=== PATIENT | female | born 1970 | race Caucasian/White ===

== ENCOUNTER 2023-04-26 01:38 | Observation (INO) | payer MEDICARE, OTHER, SELFPAY ==
[2023-04-25 21:30] VITALS: BP 121/93; BMI 22.3
--- NOTE | 2023-04-25 21:33 | EDRN ---
Addendum entered by Madelin Hernandez RN 04/25/23 21:34:
Temp in triage is 98.0
Original Note:
Pt feels she has a fever, states 'I'm normally 97.2'
[2023-04-25 22:33] VITALS: BMI 23.0
--- NOTE | 2023-04-25 22:37 | EDRN ---
Last night, pt developed numbness lower front L leg and it spread to whole leg into L arm. This went away after couple hours. Same symptoms started tonight while driving home. Pt has numbness now, worse when standing. Pt says she feels weak with
standing. Pt feels it while lying on stretcher. Numbness comes and goes. Numbness in L arm now 'like someone took a chunk out of my leg, like it is missing.' Not pins and needles. 'Like someone put novocaine there and it is numb.' Pt adds it
is a little bit of pain also. Slight nausea earlier. No cp, sob, abd pain, vomiting, fever/chills/cough, urinary symptoms, dizziness. Pt had a headache earlier this morning and says she has had them intermittently over the past week. No
visual/speech disturbance.
[2023-04-25 22:47] VITALS: BP 108/88
--- NOTE | 2023-04-25 23:09 | ED.GENMED ---
History of Present Illness
General
Chief Complaint: Numbness
Source: patient
Exam Limitations: none
Time Seen by Provider: 04/25/23 22:47
Nursing documentation reviewed up to this point in time: agreed with
Travel History
Have you had any contact with someone who has COVID-19?: No
Do you have any symptoms of coronavirus? Fever > 100 degrees, chills, cough, shortness of breath, sore throat, loss of taste or smell, muscle aches, or headache?: No
History of Present Illness
History of Present Illness:
52-year-old female presents emergency room complaining of left leg weakness and numbness, left arm numbness that began yesterday at 8 PM. She noted it went away, and then came back tonight. She also states she was driving the wrong bautista but was
unsure if it was because she was looking at her phone.
Past History
Past History
ED Past Medical History: Fibromyalgia, GERD and Other (kidney stones, migraines, irritable bowel syndrome, endometriosis, Pericarditis, Pyelonephritis, Sleep apnean, CPCP)
ED Past Surgical History: (�2), Gynecological (Laparoscopy �3), Tonsilectomy and Urological (Ureteroscopy with stone removal and stent placement 2013 as well as 10/24/2017.)
Social History
Tobacco: Former smoker
Alcohol: Occasional
Drug: None
Personal:
Living: with family
Employment: Not employed
Family History
Family History: Other (non contributory)
Review of Systems
Review of Systems
Allergies reviewed?: Yes
All Other Systems: Not applicable
Constitutional: Reports no symptoms
EENT: Reports no symptoms
Respiratory: Reports no symptoms
Cardiac: Reports no symptoms
ABD/GI: Reports no symptoms
: Reports no symptoms
Musculoskeletal: Reports no symptoms
Skin: Reports no symptoms
Neurological: Reports weakness and numbness
Endocrine: Reports no symptoms
Hematologic/Lymphatic: Reports no symptoms
Psychiatric: Reports no symptoms
Phy Exam
Physical Exam
Physical Exam:
Physical Exam
General: no apparent distress, not acutely ill
Neck: supple. no meningeal signs. normal posterior pharynx
Heart: s1/s2 regular rate and rhythm, no murmur. equal radial
pulses.
HEENT: Pupils equal round reactive to light, EOMI
Lungs: no acute respiratory distress. clear bilaterally
Abdomen: normal bowel sounds. not tender. no CVAT
Neuro: alert and oriented. no focal neurological deficits cranial nerves II through XII intact, except slight numbness and slight ataxia of the left leg
Skin: no rash
Psychiatric: well kept. interactive and cooperative
Extremities: no edema. no calf tenderness. negative homans. good distal pulses
Scores
NIH Stroke Score
Level of Consciousness: 0 - Alert
LOC Questions: 0-Answers both correctly
LOC Commands: 0-Performs both correctly
Best Horizontal Gaze: 0-Normal
Visual Wiseman: 0=Normal, no visual loss
Facial Palsy: 0=Normal, symmetrical
Motor - Right Arm: 0=No drift 10 seconds
Motor - Left Arm: 0=No drift 10 seconds
Motor - Right Le-No drift 5 seconds
Motor - Left Le-No drift 5 seconds
Limb Ataxia: 1-Present in one limb
Sensation: 0-Normal
Best Language: 0-No aphasia
Dysarthria: 0-Normal
Extinction and Inattention: 0-No abnormality
Total Score:: 1
Thrombolytic Contraindication
Inclusion and Exclusion criteria reviewed: Yes
Reasons for NON-Tx with Thrombolytics ABSOLUTE Exclusions: Greater than 4.5 hrs from onset of sxs
Course
Orders/Labs/Results
Orders:
Orders
04/25/23 23:04
EKG- Treatment ONCE
04/25/23 23:05
Electrocardiogram (*1) Urgent
Reason for Study: Fatigue / Weakness
CT Head W/o Iv Contrast Urgent
Comment:
Reason For Exam: left leg and arm weakness
Cardiac Monitoring- Treatment ONCE
IV Insert/Care/Rem.- Treatment PRN
04/25/23 23:20
Complete Blood Count/With Diff Urgent
Comprehensive Metabolic Panel Urgent
04/26/23 00:44
Aspirin 325 mg PO NOW STA
04/26/23 01:11
Admit/Transfer Patient As Directed
Co-Sign Provider:
Level of Care: Observation services
Assign to:: Telemetry
Physician / Group: Grant
Diagnosis: Left-Sided Numbness
Reason for Telemetry: CVA/TIA
Date to Stop Telemetry: 04/29/23
Time to Stop Telemetry: 11:00
04/26/23 01:12
Code Status As Directed
Resuscitation Status: Full Code
04/29/23 11:00
DC Protocol for Telemetry ONCE
Abnormal Lab Results
04/25/23
23:20
RBC 3.99 L 10^6/uL
(4.20-5.40)
Hgb 11.8 L g/dL
(12.0-16.0)
Hct 34.9 L %
(37.0-47.0)
04/25/23 23:20
04/25/23 23:20
Vital Signs
Initial and Last Documented VS:
Initial Vital Signs
Temp Pulse Resp BP Pulse Ox
98 F 78 16 121/93 99
04/25/23 21:30 04/25/23 21:30 04/25/23 21:30 04/25/23 21:30 04/25/23 21:30
Last Documented Vital Signs
Temp Pulse Resp BP Pulse Ox
98 F 83 12 122/90 100
04/25/23 21:30 04/26/23 01:00 04/26/23 01:00 04/26/23 01:00 04/26/23 00:00
MDM/Problems Addressed
Differential Diagnosis Includes:
cva, intracranial hemorrhage, complex migraine
MDM/Problems Addressed:
52 yo female with left sided numbness concerning for small cva. Symptoms began 1 day ago. TPA not indicated. Will give asa, admit for further workup.
Chronic conditions affecting care: Neurological disorder (migraines)
Acute Exacerbation and/or Progression of Chronic Illness: Neurological disorder (migraines)
*Radiology
Radiology exam reviewed: radiology read reviewed (CT head no acute findings)
*Pulse Oximetry
Patient hypoxic: no
*EKG
Interpreted by ED Provider?: NA
*Ice Skating Coach Interpretation
Rate: normal
Interpretation: normal
Heart Rate: 80
Rhythm: sinus
*Critical Care Note
Total Time (30-74mins, 75-104mins- exclusive of procedures): Not Applicable
Data Reviewed
Review of Other/Old Records Reveals: Discharge Summary (Prior renal calculus removal by Dr. Hill 11/11/2021)
Prescriptions/Medications Considered But Not Given:
TNK not indicated
Patient Management
Social determinants of health affecting care: Living situation and Strong social support
Discussion with other providers: Hospitalist
Escalation/DeEscalation of care consider admission/obs:
admit indicated
ED Attending Note
-
Portions of this chart may have been created with voice recognition software.� Occasional wrong word or��sound alike� substitutions may have occurred due to the inherent limitations of voice recognition software.
Discharge Plan
Departure
Patient Disposition: Admit
Date of Disposition: 04/26/23
Time of Disposition: 00:35
Presentation/result/management discussed w/ accepting MD/DO: Hospitalist
Patient with high blood pressure during this ER visit?: No
Condition: Good
Discharge Problem:
Acute CVA (cerebrovascular accident)
Prescriptions:
No Action
escitalopram oxalate 10 MG tablet
20 mg PO DAILY
topiramate 25 MG tablet
50 mg PO BID
loratadine 10 MG tablet
10 mg PO DAILY
docusate sodium 100 MG capsule
200 mg PO BID
lansoprazole 30 MG tablet,disintegrat, delay rel
30 mg PO DAILY
multivitamin Tablet
1 tab PO DAILY
tizanidine [Zanaflex] 4 mg Tablet
4 mg PO HS
amitriptyline [Elavil] 10 mg Tablet
10 mg PO DAILY
norethindrone acetate 5 mg Tablet
5 mg PO DAILY
Referrals:
Josiah Whittaker DO [Family Provider] -
Interventions
Interventions:
*Risk Screen - Suicide Last Done: 04/25/23 21:30
*General Assessment Last Done: 04/25/23 22:33
*Neglect/Abuse Screening Last Done: 04/25/23 21:30
ED- Fall Risk Assessment Last Done: 04/25/23 23:26
*ED COVID-19 Vaccine History Last Done: 04/25/23 21:30
ED- Neurological Assessment Last Done: 04/26/23 00:48
[2023-04-25 23:26] LABS: % Basophils 0.6 % (0-2); % Immature Granulocytes 0.2 % (0-0.5); % Lymphocytes 34.5 % (20.5-51.1); % Monocytes 5.1 % (1.7-9.3); % Neutrophils 57.6 % (42.2-75.2); Absolute Basophils 0.1 10^3/uL (0-0.2); Absolute Eosinophils 0.2 10^3/uL (0-0.7); Absolute Monocytes 0.4 10^3/uL (0.1-0.6); Absolute Neutrophils 4.9 10^3/uL (1.4-6.5); Hematocrit 34.9 % (37.0-47.0); Hemoglobin 11.8 g/dL (12.0-16.0); Mean Corp Hgb Conc. 33.8 g/dL (33.0-37.0); Mean Corpuscular Hgb 29.6 pg (27.0-31.0); Mean Corpuscular Volume 87.5 fL (81.0-99.0); Mean Platelet Volume 10.1 fL (7.4-10.4); Nucleated Red Blood Cells % 0 %; Platelet Count 271 10^3/uL (130-400); Red Blood Cell Count 3.99 10^6/uL (4.20-5.40); White Blood Cell Count 8.6 10^3/uL (4.8-10.8)
[2023-04-25 23:43] LABS: ALT (SGPT) 29 U/L (0-35); AST (SGOT) 26 U/L (14-36); Albumin 3.9 g/dl (3.5-5.0); Alkaline Phosphatase 118 U/L (38-126); Blood Urea Nitrogen 14 mg/dl (7-17); Calcium 9.7 mg/dl (8.4-10.2); Carbon Dioxide 23 mmol/L (22-30); Chloride 107 mmol/L (98-107); Estimated Creatinine Clearance 65 ml/min; Glucose 99 mg/dl (70-99); Potassium 3.7 mmol/L (3.5-5.1); Sodium 140 mmol/L (135-145); Total Bilirubin 0.4 mg/dl (0.2-1.3); Total Protein 7.1 g/dl (6.3-8.2); eGFR > 60.00
[2023-04-26] VITALS (8 sets, daily range): BP systolic 104–148; BP diastolic 67–90; PULSE 87–96; O2SAT 95; BMI 22.7
[2023-04-26] MEDS: ASPIRIN 325 MG PO (00:50)
--- NOTE | 2023-04-26 01:15 | HPS.HSE ---
Family Physician
-
Family Physician: Josiah Whittaker
Chief Complaint
-
Left Sided Numbness
History of Present Illness
Patient is a 52y F with PMH significant for fibromyalgia, migraines, concussion and kidney stones who presents to ED complaining of left sided numbness. Patient states that she first noted her symptoms last PM around 8PM. She noted numbness in
the L foot which ascended the leg and then spread into the L arm. She denies any tingling or paresthesias. There was no appreciable weakness, pain, headache, etc. Patient states that she is not sure if her symptoms resolved or if she simply fell
asleep; however, when she woke this AM she felt normal. Patient went about her day today with no issues.
This evening around 7:30 PM, she noted recurrent numbness in the leg which again spread to include the L arm. Patient states that she felt 'weak' on the L - though she had no specific difficulty with walking or with using the L arm / hand. She
simply noted a discrete difference between L and R. Patient states that she had a circumferential headache this AM, but has no headache now. She denies any speech issues, vision changes, dizziness, etc.
Patient notes that she had a similar episode about 15 years ago which was very similar. This also involved L sided weakness and patient notes that she underwent extensive evaluation at that time including imaging, spinal tap, etc. Work-up was
reportedly unremarkable and patient notes that her symptom were eventually attributed to 'fibromyalgia' and they eventually resolved on their own.
At the time of my examination in the ED, patient states that her symptoms are improved from arrival, but they have not fully resolved.
Medical History
Past Medical History
Past Medical History: Reports Other
Additional Past Medical History:
Fibromyalgia
Migraine Headaches
Concussion
Endometriosis
Fibroids
Anxiety / Depression
Past Surgical History: Reports Other
Additional Past Surgical History:
x 2
D&C
Ex Lap
Social History
Tobacco: Former Smoker (Quit smoking 25 years ago. < 10 pack years total use.)
Alcohol: Occasional
Drug: None
Family History
Family History: Other (Father: Lung cancer Mother: Fibromyalgia Brother: MS)
Allergies / Home Medications
Allergies reflects when Allergies were last updated in [facility].
Home Medications with original date entered in [facility]
Allergy/Medication List:
Allergies
Allergy/AdvReac Type Severity Reaction Status Date / Time
adhesive Allergy Rash Verified 04/25/23 21:29
chlorpheniramine polistirex Allergy ITCHING Verified 04/25/23 21:
[From Tussionex] BUT
'RESOLVES
WITH
BENADRYL'
ciprofloxacin [From Cipro] Allergy Anaphylaxis Verified 04/25/23 21:
ciprofloxacin HCl Allergy Anaphylaxis Verified 04/25/23 21:
[From Cipro]
doxycycline Allergy muscle Verified 04/25/23 21:29
aches/pain
hydrocodone polistirex Allergy itching, Verified 04/25/23 21:29
[From Tussionex] rash,
difficulty
breathing
Iodinated Contrast Media Allergy Itching Verified 04/25/23 21:29
[Iodinated Contrast- Oral
and IV Dye]
levofloxacin [From Levaquin] Allergy Anaphylaxis Verified 04/25/23 21:29
morphine Allergy itchy Verified 04/25/23 21:29
propoxyphene napsylate Allergy muscle Verified 04/25/23 21:29
[From Darvocet-N 100] spasms
sulfamethoxazole Allergy muscle Verified 04/25/23 21:29
[From Bactrim] weakness
(Bactrim)
trimethoprim [From Bactrim] Allergy muscle Verified 04/25/23 21:29
weakness
(Bactrim)
Home Medications
escitalopram oxalate 10 mg tablet 20 mg PO DAILY Mental Health/Anxiety 02/25/09
topiramate 25 mg tablet 50 mg PO BID Mental Health/Anxiety 07/21/12
loratadine 10 mg tablet 10 mg PO DAILY Allergies 09/24/19
docusate sodium 100 mg capsule 200 mg PO BID Constipation 11/27/20
lansoprazole 30 mg delayed release,disintegrating tablet 30 mg PO DAILY Gastrointestinal issue 11/27/20
amitriptyline 10 mg tablet 10 mg PO DAILY 04/25/23
multivitamin 1 tab PO DAILY 04/25/23
norethindrone acetate 5 mg tablet 5 mg PO DAILY 04/25/23
tizanidine 4 mg tablet (Zanaflex) 4 mg PO HS 04/25/23
Review of Systems
-
History Source: Patient
A 12 point ROS was completed and negative except as noted: Yes
Constitutional: Denies Fever, Fatigue or Chills
EENT: Denies Sore Throat
Respiratory: Denies Cough or Trouble Breathing
Cardiac: Denies Chest Pain or Palpitations
Abdomen/GI: Denies Abdominal Pain, Nausea, Vomiting or Diarrhea
: Denies Dysuria, Frequency or Flank Pain
Musculoskeletal: Denies Joint Pain or Edema
Neurological: Reports Headache, Weakness and Numbness; Denies Dizzy
Psych: Denies Depression or Anxiety
Physical Exam
Vital Signs
Vital Signs
Temp Pulse Resp BP Pulse Ox
98 F 84 12 107/83 100
04/25/23 21:30 04/26/23 00:00 04/26/23 00:00 04/26/23 00:00 04/26/23 00:00
Physical Exam
General: Other (52y F in no acute distress.)
HEENT: Moist mucous membranes, PERRLA and Other (No carotid bruits appreciated.)
Respiratory: Clear; No Wheezes, Rales or Rhonchi
Cardiac: S1/S2 and Regular Rhythm; No Murmur
GI: Soft, Non Tender, Non Distended and Normal Bowel Sounds
Musculoskeletal: No Clubbing, No Cyanosis and No Edema
Neuro: AO x 3 and Other (Sensation is intact, but described as 'dull' on the L. Minimal L weakness (arm and leg) compared to the R. No ataxia.)
Psych: No Anxious or Depressed
Laboratory Results
-
04/25/23 23:20
04/25/23 23:20
Laboratory Results
Total Bilirubin 0.4 mg/dl (0.2-1.3) 04/25/23 23:20
AST 26 U/L (14-36) 04/25/23 23:20
ALT 29 U/L (0-35) 04/25/23 23:20
Alkaline Phosphatase 118 U/L (38-126) 04/25/23 23:20
Impression/Plan
-
A/P: Patient is a 52y F with PMH significant for fibromyalgia, migraines and depression who presents to ED complaining of left sided numbness x 2 episodes in the past 2 days.
Left Sided Numbness
- Observe overnight for further evaluation and treatment.
- Symptoms last PM that resolved and symptoms this PM that are improving.
- CT head is unremarkable.
- Follow neuro exam for any changes - better or worse.
- ASA daily for now.
- MRI brain in the AM.
- PT /OT and Neurology evaluations in the AM.
- Note that patient had very similar episode about 15 years ago with what sounds an extensive - and unremarkable - work-up.
Fibromyalgia
Anxiety / Depression
- Stable. Continue usual outpatient medications.
DVT Prophylaxis: SCDs
Code Status: Full
--- NOTE | 2023-04-26 03:00 | PTCARENOTE ---
Pt admitted from ED to 3W room 319/1. Pt walked from the stretcher to the bed. Pt AAOx3, oriented to the unit. Resting comfortably in bed. Call mcgowan within reach. Plan of care ongoing.
[2023-04-26 06:31] LABS: Hematocrit 34.5 % (37.0-47.0); Hemoglobin 11.4 g/dL (12.0-16.0); Mean Corpuscular Hgb 30.1 pg (27.0-31.0); Mean Platelet Volume 10.6 fL (7.4-10.4); Platelet Count 238 10^3/uL (130-400); Red Blood Cell Count 3.79 10^6/uL (4.20-5.40)
[2023-04-26 06:52] LABS: Blood Urea Nitrogen 14 mg/dl (7-17); Calcium 9.6 mg/dl (8.4-10.2); Carbon Dioxide 25 mmol/L (22-30); Chloride 109 mmol/L (98-107); Estimated Creatinine Clearance 49 ml/min; Glucose 103 mg/dl (70-99); HDL Cholesterol 31 mg/dl; LDL Cholesterol, Calculated 129 mg/dl; Potassium 4.4 mmol/L (3.5-5.1); Sodium 140 mmol/L (135-145); Total Cholesterol 180 mg/dl (50-199); Triglyceride 104 mg/dl (10-149); Very Low Density Lipoprotein 20 mg/dl (0-30)
[2023-04-26 07:23] LABS: TSH Reflex To Free T4 6.63 uIU/ml (0.47-4.68)
[2023-04-26 07:52] LABS: Free T4 1.04 ng/dl (0.78-2.19)
[2023-04-26] MEDS: PROTONIX 40 MG PO (08:30)
[2023-04-26] MEDS: LOW STRENGTH ASPIRIN 81 MG PO (08:30)
[2023-04-26] MEDS: LEXAPRO 20 MG PO (08:30)
[2023-04-26] MEDS: TOPAMAX 50 MG PO (08:30)
[2023-04-26] MEDS: ELAVIL 10 MG PO (08:30)
--- NOTE | 2023-04-26 10:05 | CON.NEURO4 ---
Consultation - Neurology 4
-
CONSULTING PHYSICIAN: Ana
REFERRING PHYSICIAN: hospitalist
DICTATED BY: Ana
DATE/TIME OF REQUEST: 04/26/23 9am
DATE/TIME OF CONSULTATION: 04/26/23 at 915
Reason for Consultation: numbness
History of Present Illness:
52-year-old female with past medical history of fibromyalgia, concussion and diagnosis of hemiplegic migraine about 20 years ago associated with left-sided numbness. She currently follows with a neurologist at [facility], Dr. Olegario hernandez. She
states that Thursday night she started having a feeling like 'Novocain had been injected in her foot was on fire in the front of her left lower extremity. This gradually traveled up her leg and then later into her left arm. She laid down and it went
away. Thursday morning she was okay. Thursday evening it started again in the same place to the bottom of the left leg. It then spread again into her whole arm and leg on the left. The leg is worse than the arm. Got worse when she tried to
stand up on the leg. It gradually improved at night. She describes this as 'feeling like a chunk of her leg is missing.' She has had waxing and waning numbness in the left lower extremity associated with a wobbly sensation. She states that with
her current event she has had headaches on and off for about 1 week. She woke up with a headache yesterday. She is taken Advil, Excedrin and Benadryl for it.
Currently she has numbness in her left arm and leg. She says that when the SCDs compress her legs her pain worsens. Overall her left lower extremity feels less weak than it did prior. She still has some left facial numbness as well.
She says that about 20 years ago she had left-sided numbness starting in her left toes that gradually spread up her left side and involves her face. She was admitted and found to have no stroke as cause for her symptoms. She believes she was
ultimately diagnosed with hemiplegic migraine.
She also has a history of concussion. She says that about 15 years ago, she had sudden pain in her left lower extremity which traveled to her right side she eventually had whole body pain. She was diagnosed with fibromyalgia. She was seen by
rheumatology and thinks that she tried Lyrica without great results. She says that at times no clear unifying diagnosis has been found for symptoms., Her brother has a history of multiple sclerosis and her mother has a history of fibromyalgia.
She does not think she has had recent imaging done.
Past Medical Hx:
Fibromyalgia
Migraine Headaches with hemiplegic migraine dx 20 years ago
Concussion
Endometriosis
Fibroids
Anxiety / Depression
Past Surgical History:
x 2
D&C
Ex Lap
Social History
Tobacco: Former Smoker-Quit smoking 25 years ago.� < 10 pack years total use
Alcohol: Occasional
Drug: None
Family History
Family History: Father: Lung cancer � � Mother: Fibromyalgia � � Brother: MS
Allergies
adhesive Allergy (Verified 04/25/23 21:29)
Rash
chlorpheniramine polistirex [From Tussionex] Allergy (Verified 04/25/23 21:29)
ITCHING BUT 'RESOLVES WITH BENADRYL'
ciprofloxacin [From Cipro] Allergy (Verified 04/25/23 21:29)
Anaphylaxis
ciprofloxacin HCl [From Cipro] Allergy (Verified 04/25/23 21:29)
Anaphylaxis
doxycycline Allergy (Verified 04/25/23 21:29)
muscle aches/pain
hydrocodone polistirex [From Tussionex] Allergy (Verified 04/25/23 21:29)
itching, rash, difficulty breathing
Iodinated Contrast Media [Iodinated Contrast- Oral and IV Dye] Allergy (Verified 04/25/23 21:29)
Itching
levofloxacin [From Levaquin] Allergy (Verified 04/25/23 21:29)
Anaphylaxis
morphine Allergy (Verified 04/25/23 21:29)
itchy
propoxyphene napsylate [From Darvocet-N 100] Allergy (Verified 04/25/23 21:29)
muscle spasms
sulfamethoxazole [From Bactrim] Allergy (Verified 04/25/23 21:29)
muscle weakness (Bactrim)
trimethoprim [From Bactrim] Allergy (Verified 04/25/23 21:29)
muscle weakness (Bactrim)
Home Medications
Medication Instructions Recorded
escitalopram oxalate 10 mg tablet 20 mg PO DAILY Mental 02/25/09
Health/Anxiety
topiramate 25 mg tablet 50 mg PO BID Mental Health/Anxiety 07/21/12
loratadine 10 mg tablet 10 mg PO DAILY Allergies 09/24/19
docusate sodium 100 mg capsule 200 mg PO BID Constipation 11/27/20
lansoprazole 30 mg delayed 30 mg PO DAILY Gastrointestinal 11/27/20
release,disintegrating tablet issue
amitriptyline 10 mg tablet 10 mg PO DAILY 04/25/23
multivitamin 1 tab PO DAILY 04/25/23
norethindrone acetate 5 mg tablet 5 mg PO DAILY 04/25/23
tizanidine 4 mg tablet (Zanaflex) 4 mg PO HS 04/25/23
Review of Symptoms:
Patient denies any fever, headache, chest pain, shortness of breath, GI or symptoms.
�Per the HPI.�All systems are reviewed negative except above.
Vital Signs
Temp Pulse Resp BP Pulse Ox
98.6 F 84 17 108/67 99
04/26/23 07:00 04/26/23 07:00 04/26/23 07:00 04/26/23 07:00 04/26/23 07:00
Lab Results
04/26/23 06:12
04/26/23 06:12
Sodium 140 mmol/L (135-145) 04/26/23 06:12
Potassium 4.4 mmol/L (3.5-5.1) 04/26/23 06:12
BUN 14 mg/dl (7-17) 04/26/23 06:12
Glucose 103 mg/dl (70-99) H 04/26/23 06:12
Calcium 9.6 mg/dl (8.4-10.2) 04/26/23 06:12
LDL Cholesterol, Calc 129 mg/dl 04/26/23 06:12
Physical Exam:
The patient is afebrile, heart sounds S1 and S2 are regular, and chest is clear to auscultation bilaterally.
NIH Stroke Scale:
I performed the NIH stroke scale on the patient on 04/26/23. The patient scored 1 points on the NIH stroke scale assessment, which were assigned as follows: 1 for L sided numbness
Neurologic Examination:
The patient is awake, alert and oriented x 3.She is able to follow commands and answer questions appropriately. There is no aphasia or dysarthria. On cranial nerve assessment, pupils are 3 mm bilateral, round and reactive to light and
accommodation. Visual laughlin are full. Extraocular movements are intact. Facial sensations are intact and bilaterally symmetrical, there is no facial asymmetry. Hearing is intact bilaterally to normal conversation volume. Tongue palate and uvula
are midline. Sternocleidomastoid strengths are full bilaterally. Motor strengths are 5/5 bilateral upper and lower extremities on [employer] scale. There is no drift or involuntary movement noted. Deep tendon reflexes are 2+ bilateral
upper and lower extremities and Babinski is absent bilaterally. Sensations of touch, temperature were diminished in the L face, arm and leg. There was no extinction noted on double simultaneous stimulation. Coordination is intact by finger to nose
bilaterally.
Neuro Imaging:
HCT
1. � No CT evidence for acute intracranial hemorrhage or transcortical infarct.
2. � Mild diffuse cerebral and cerebellar volume loss.
Impression:
JAYLIN WILD is a 52 year old F who has presented to the hospital with a complaint of migrating left-sided numbness and neuropathic pain with some associated weakness. Her symptoms do not clearly fit with stroke. She has a history of similar
symptoms in the past with a diagnosis of hemiplegic migraine and fibromyalgia, further clouding the picture. She is never taken a migraine preventative medication. She previously tried Lyrica for her fibromyalgia without great results.
Patient has the following risk factors for their symptoms: Former smoker
IV Tenecteplase/IAT candidacy: Not a candidate as non-debilitating, NIH stroke scale is only 1 and for numbness
Recommendations:
1. MRI brain w/wo contrast given constellation of symptoms, family hx of MS
2. would consider neuropathic pain medication that could double as a migraine preventative as an outpatient but this is ultimately up to her outpatient neurologist Dr. Hernandez
3. PT/OT evaluations
4. need prior records
5. neurochecks
Discussed patient care with: patient, nursing
--- NOTE | 2023-04-26 10:08 | CM ---
Addendum entered by Sam Dickson 04/26/23 14:51:
Discharge order noted.
Pt is aware and she stated her boyfriend will transport home.
PT and OT evaluations noted - outpatient PT/OT recommended. CM discussed it with the pt, pt expressed her agreement and she stated she will come to outpatient therapy.
Please provide a script for outpatient PT/OT.
D/C plan: home with outpatient PT/OT at . Boyfriend to transport.
No other discharge needs identified.
Original Note:
CM following re: discharge planning.
Reviewed pt's chart, met with pt.
Pt is a 52 year old female, admitted with OBS status and primary dx of Left side numbness. OBS status explained to the pt, pt expressed her understanding, SHEIKH letter signed, placed in chart, pt has a copy.
Pt reports she lives with a boyfriend in a [place], 3 steps to enter, has 2 supportive children. Pt described herself as independent in all areas [place], drives. No DME, VN or SNF history.
PCP: Josiah Elizabeth
Pharmacy: [facility]
D/C plan: home with anticipated no needs. Sig other to transport at discharge.
CM will follow with discharge plan updates as hospitalization progresses
--- NOTE | 2023-04-26 14:00 | W.PN.UPDATE ---
Addendum entered and electronically signed by Endy Robles MD 04/26/23 14:37:
[facility] Neuro -ok for dc from neurologty standpoint
Follow with primary neurologist on dc .
Original Note:
Update Note
Progress Note Update
Admitted early also this morning by Dr. Burns for left-sided numbness
Had MRI of the brain which shows no evidence of stroke.
She has no motor deficit but she feels the numbness. She feels as though she had Novocain to the left arm and the leg.
She had a headache for a week prior to coming to the hospital which broke and then she had a headache yesterday but no headache today. 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
She is on prophylaxis with Topamax and Elavil without any recent breakthroughs other than last week. Did not have to use triptans in the past. Last week she was trying to manage with NSAIDs.
No motor deficit.
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
PT sy noted who recommends home health
DC if okay from neurology standpoint.
--- NOTE | 2023-04-26 14:04 | W.DS.TRANS ---
DC Summary - [employer]
-
Discharge Instructions:
Discharge Diagnosis/Procedures Headache with Left sided numbness with no stroke
on MRI brain -suspected hemiplegic migraine
Diet Regular
Activity As tolerated
Driving Restrictions As prior to admission
Bathing Restrictions None
Other Services PT
Instructions:
Stand-Alone Forms:
Changes to Home Medications: No
Discharge Medications:
DC Medications w/original date entered in [facility]
escitalopram oxalate 10 mg tablet 20 mg PO DAILY Mental Health/Anxiety 02/25/09
topiramate 25 mg tablet 50 mg PO BID Mental Health/Anxiety 07/21/12
loratadine 10 mg tablet 10 mg PO DAILY Allergies 09/24/19
docusate sodium 100 mg capsule 200 mg PO BID Constipation 11/27/20
lansoprazole 30 mg delayed release,disintegrating tablet 30 mg PO DAILY Gastrointestinal issue 11/27/20
amitriptyline 10 mg tablet 10 mg PO DAILY 04/25/23
multivitamin 1 tab PO DAILY 04/25/23
norethindrone acetate 5 mg tablet 5 mg PO DAILY 04/25/23
tizanidine 4 mg tablet (Zanaflex) 4 mg PO HS 04/25/23
Home Medication Changes
Pending Results: No
== END 2023-04-26 16:43 | disposition home or self-care (01) ==
LOC: 3 WEST ACU 01:38
PROVIDERS: ADMITTING PHYSICIAN Hospitalist; ATTENDING PHYSICIAN Internal Medicine; CONSULT PHYSICIAN Psychiatry & Neurology Neurology; EMERGENCY PHYSICIAN Emergency Medicine; FAMILY PHYSICIAN Family Medicine
DX: R51.9 Headache, unspecified (principal); R20.0 Anesthesia of skin; K21.9 Gastro-esophageal reflux disease without esophagitis; K58.9 Irritable bowel syndrome, unspecified; M79.7 Fibromyalgia; R53.1 Weakness; F41.9 Anxiety disorder, unspecified; F32.A Depression, unspecified; Z87.891 Personal history of nicotine dependence; Z87.442 Personal history of urinary calculi; Z88.1 Allergy status to other antibiotic agents; Z88.5 Allergy status to narcotic agent; Z88.2 Allergy status to sulfonamides; Z88.8 Allergy status to other drugs, medicaments and biological substances; Z91.048 Other nonmedicinal substance allergy status
CPT/HCPCS: 70450; 70553; 80048; 80053; 80061; 84439; 84443; 85025; 85027; 93005; 97163; 97166; 99285; A9575; G0378

== ENCOUNTER 2023-07-04 22:53 | Emergency (ER) | payer MEDICARE, OTHER, SELFPAY ==
[2023-07-04 22:54] VITALS: BP 140/94
--- NOTE | 2023-07-04 23:15 | ED.GENMED ---
History of Present Illness
<JASON Gordon - Last Filed: 07/05/23 05:00>
General
Chief Complaint: Flank Pain
Time Seen by Provider: 07/04/23 23:00
Travel History
Have you had any contact with someone who has COVID-19?: No
Do you have any symptoms of coronavirus? Fever > 100 degrees, chills, cough, shortness of breath, sore throat, loss of taste or smell, muscle aches, or headache?: No
History of Present Illness
History of Present Illness:
This is a 52 yo female PMH endometriosis and renal calculi presenting for R flank pain x 6 hours. She states this pain began abruptly while at rest and the pain significantly worsened prior to arrival to the ER. She has taken naproxen for pain which
she states has not helped.
She describes a history of prior renal calculi stating the last one was over 6 months ago which presenting with very similar pain.
She denies nausea, vomiting, diarrhea, constipation, dysuria, hematuria.
On exam, she appears nontoxic, is shifting in pain, has moderate R flank tenderness and no L flank tenderness, and has no abdominal tenderness.
Past History
<JASON Gordon - Last Filed: 07/05/23 05:00>
Past History
ED Past Medical History: Fibromyalgia, GERD and Other (kidney stones, migraines, irritable bowel syndrome, endometriosis, Pericarditis, Pyelonephritis, Sleep apnean, CPCP)
ED Past Surgical History: (�2), Gynecological (Laparoscopy �3), Tonsilectomy and Urological (Ureteroscopy with stone removal and stent placement 2013 as well as 10/24/2017.)
Social History
Tobacco: Former smoker
Alcohol: Occasional
Drug: None
Personal:
Living: with family
Employment: Not employed
Family History
Family History: Other (non contributory)
Review of Systems
<JASON Gordon - Last Filed: 07/05/23 05:00>
Review of Systems
Allergies reviewed?: Yes
Constitutional: Reports no symptoms
Respiratory: Reports no symptoms
Cardiac: Reports no symptoms
ABD/GI: Reports no symptoms
: Reports flank pain
Musculoskeletal: Reports no symptoms
Skin: Reports no symptoms
Neurological: Reports no symptoms
Phy Exam
<JASON Gordon - Last Filed: 07/05/23 05:00>
General Physical Exam
General Presentation: moderate distress
General age: appears stated age
General Skin: warm
General Habitus: normal
General Mental: alert
General Hydration: appears well hydrated
Cardiovascular Exam
Cardiovascular Exam: regular rate/rhythm
Pulmonary Exam
Pulmonary Exam: lungs clear
Gastrointestinal Exam
Gastrointestinal Exam: non tender, soft, non distended and cva tenderness (R sided)
Skin Exam
Skin Exam: normal color
Course
<JASON Gordon - Last Filed: 07/05/23 05:00>
Orders/Labs/Results
Orders:
Orders
07/04/23 23:28
Diphenhydramine [Benadryl] 12.5 mg IV NOW STA
HYDROmorphone [Dilaudid] 0.5 mg IV NOW STA
Ketorolac [Toradol] 15 mg IV NOW STA
07/04/23 23:29
0.9% Sodium Chloride 500 ml [Nss] 500 ml IV BOLUS
Test Result ONCE
07/04/23 23:31
US Renal Only W/O Bladder Urgent
Comment:
Reason For Exam: right flank pain
07/04/23 23:35
Basic Metabolic Panel Urgent
Complete Blood Count/With Diff Urgent
HCG, Urine Qualitative Screen Urgent
Date Specimen was Collected: 07/04/23
Time Specimen was Collected: 23:31
Urinalysis Reflex To Culture Urgent
Date Specimen was Collected: 07/04/23
Time Specimen was Collected: 23:31
Urine Microscopic Reflex Cult Urgent
Urine Culture Urgent
TOD Source: U
Specimen Description:
Date Specimen was Collected: 07/04/23
Time Specimen was Collected: 23:31
07/04/23 23:48
HYDROmorphone [Dilaudid] 0.5 mg IV NOW STA
07/04/23 23:49
HYDROmorphone [Dilaudid] 0.5 mg .ROUTE .STK-MED ONE
07/05/23 00:35
Diphenhydramine [Benadryl] 25 mg IV NOW STA
Abnormal Lab Results
07/04/23
23:35
RBC 4.17 L 10^6/uL
(4.20-5.40)
Hct 36.0 L %
(37.0-47.0)
Sodium 133 L mmol/L
(135-145)
Chloride 109 H mmol/L
(98-107)
Carbon Dioxide 17 L mmol/L
(22-30)
BUN 18 H mg/dl
(7-17)
Leukocyte Esterase Rfl Trace A
(Negative)
Urine Bacteria (Reflex) Moderate A
(Negative)
07/04/23 23:35
07/04/23 23:35
Vital Signs
Initial and Last Documented VS:
Initial Vital Signs
Temp Pulse Resp BP Pulse Ox
99.6 F 74 28 140/94 100
07/04/23 22:54 07/04/23 22:54 07/04/23 22:54 07/04/23 22:54 07/04/23 22:54
Last Documented Vital Signs
Temp Pulse Resp BP Pulse Ox
99.6 F 74 28 140/94 100
07/04/23 22:54 07/04/23 22:54 07/04/23 22:54 07/04/23 22:54 07/04/23 22:54
<Capo Perez MD - Last Filed: 07/05/23 01:22>
Orders/Labs/Results
Orders:
Orders
07/04/23 23:28
Diphenhydramine [Benadryl] 12.5 mg IV NOW STA
HYDROmorphone [Dilaudid] 0.5 mg IV NOW STA
Ketorolac [Toradol] 15 mg IV NOW STA
07/04/23 23:29
0.9% Sodium Chloride 500 ml [Nss] 500 ml IV BOLUS
Test Result ONCE
07/04/23 23:31
US Renal Only W/O Bladder Urgent
Comment:
Reason For Exam: right flank pain
07/04/23 23:35
Basic Metabolic Panel Urgent
Complete Blood Count/With Diff Urgent
HCG, Urine Qualitative Screen Urgent
Date Specimen was Collected: 07/04/23
Time Specimen was Collected: 23:31
Urinalysis Reflex To Culture Urgent
Date Specimen was Collected: 07/04/23
Time Specimen was Collected: 23:31
Urine Microscopic Reflex Cult Urgent
Urine Culture Urgent
TOD Source: U
Specimen Description:
Date Specimen was Collected: 07/04/23
Time Specimen was Collected: 23:31
07/04/23 23:48
HYDROmorphone [Dilaudid] 0.5 mg IV NOW STA
07/04/23 23:49
HYDROmorphone [Dilaudid] 0.5 mg .ROUTE .STK-MED ONE
07/05/23 00:35
Diphenhydramine [Benadryl] 25 mg IV NOW STA
Abnormal Lab Results
07/04/23
23:35
RBC 4.17 L 10^6/uL
(4.20-5.40)
Hct 36.0 L %
(37.0-47.0)
Sodium 133 L mmol/L
(135-145)
Chloride 109 H mmol/L
(98-107)
Carbon Dioxide 17 L mmol/L
(22-30)
BUN 18 H mg/dl
(7-17)
Leukocyte Esterase Rfl Trace A
(Negative)
Urine Bacteria (Reflex) Moderate A
(Negative)
07/04/23 23:35
07/04/23 23:35
Vital Signs
Initial and Last Documented VS:
Initial Vital Signs
Temp Pulse Resp BP Pulse Ox
99.6 F 74 28 140/94 100
07/04/23 22:54 07/04/23 22:54 07/04/23 22:54 07/04/23 22:54 07/04/23 22:54
Last Documented Vital Signs
Temp Pulse Resp BP Pulse Ox
99.6 F 74 28 140/94 100
07/04/23 22:54 07/04/23 22:54 07/04/23 22:54 07/04/23 22:54 07/04/23 22:54
<JASON Gordon - Last Filed: 07/05/23 05:00>
MDM/Problems Addressed
Differential Diagnosis Includes:
Renal calculi
Pyelonephritis
<JASON Gordon - Last Filed: 07/05/23 05:00>
*Critical Care Note
Total Time (30-74mins, 75-104mins- exclusive of procedures): Not Applicable
ED Attending Note
<JASON Gordon - Last Filed: 07/05/23 05:00>
-
Portions of this chart may have been created with voice recognition software.� Occasional wrong word or��sound alike� substitutions may have occurred due to the inherent limitations of voice recognition software.
<Capo Perez MD - Last Filed: 07/05/23 01:22>
ED Attending Note
Patient seen and examined by attending physician: Yes
ED Attending Note:
Patient presents to ED secondary to sudden onset of right flank/lower abdominal pain with nausea sensation, and approxi-6 hours prior to arrival. Denies fever or chills. Abdominal pain described as sharp, nonradiating, without any alleviating or
exacerbating factors. Denies trauma. Denies difficulty with urination. Denies fever or chills. Denies loss of sensation or weakness. Patient unfortunately has had number of similar symptoms in the past, secondary to kidney stones. Patient
states that her last episode of kidney stone attack was approxi-2 years ago.
Physical Exam
General: moderate painful distress, not acutely ill. afebrile
Head: nc/at. eomi
Neck: supple. no meningeal signs.
Heart: s1/s2 regular rate and rhythm, no murmur. equal radial pulses.
Lungs: no acute respiratory distress. clear bilaterally
Abdomen: normal bowel sounds. not tender. no distention.
Neuro: alert and oriented. no focal neurological deficits
Skin: no rash
Psychiatric: well kept. interactive and cooperative
Extremities: no edema. no calf tenderness.
History and exam concerning for likely recurrent renal colic. As such, patient will be provided with pain medication and renal ultrasound will be ordered.
Renal ultrasound report reviewed and discussed with patient. Patient also reports significant improvement symptoms after treatment. Patient remains afebrile, hemodynamically stable. Patient presentation likely secondary to recurrent ureteral
stone. However, in light of the fact that there is no significant hydronephrosis or ureteral dilation, it is possible that it is a very small stone that is in transit. Patient expresses concern for repeat CT scan, and as such I believe is
reasonable to withhold any further imaging studies at this time. Advised patient to strain her urine at home along with urology follow-up. Patient advised to return to ED with worsening symptoms, i.e. fever/worsening pain/vomiting/inability
urinate. Patient expresses understanding at time of discharge, to the care of her family.
Discharge Plan
Departure
Patient Disposition: Home (Routine Discharge)
Date of Disposition: 07/05/23
Time of Disposition: 01:11
Patient with high blood pressure during this ER visit?: Yes
Condition: Fair
Discharge Problem:
Flank pain
Instructions: Flank Pain (DC)
Prescriptions:
New
oxycodone-acetaminophen [Percocet] 5-325 mg Tablet
1 tab PO Q6HPRN PRN (Reason: pain) Qty: 8 0RF
tamsulosin [Flomax] 0.4 mg Capsule
0.4 mg PO DAILY Qty: 7 0RF
ondansetron 4 mg Tablet,Disintegrating
4 mg PO TIDPRN PRN (Reason: nausea/vomiting) Qty: 12 0RF
ketorolac 10 mg tablet
10 mg PO Q8H PRN (Reason: Pain) Qty: 14 0RF
Rx Instructions:
maximum total duration of 5 days from all oral, intranasal, or parenteral formulations
No Action
escitalopram oxalate 10 MG tablet
20 mg PO DAILY
topiramate 25 MG tablet
50 mg PO BID
loratadine 10 MG tablet
10 mg PO DAILY
docusate sodium 100 MG capsule
200 mg PO BID
lansoprazole 30 MG tablet,disintegrat, delay rel
30 mg PO DAILY
multivitamin Tablet
1 tab PO DAILY
tizanidine [Zanaflex] 4 mg Tablet
4 mg PO HS
amitriptyline 10 mg Tablet
10 mg PO DAILY
norethindrone acetate 5 mg Tablet
5 mg PO DAILY
Referrals:
Josiah Whittaker DO [Family Provider] -
Glynn Ayala Jr., MD [Active] -
Activity Restrictions/Additional Instructions:
As discussed, please follow up with your primary care physician and/or urologist with any further concerns. Please return to ED with worsening symptoms, i.e. fever/worsening pain/inability to urinate. Your prescriptions have been sent
electronically to [facility] pharmacy in [place].
Interventions
Interventions:
*Risk Screen - Suicide Last Done: 07/04/23 22:54
*General Assessment Last Done: 07/05/23 01:51
*Neglect/Abuse Screening Last Done: 07/04/23 22:54
ED- Fall Risk Assessment Last Done: 07/04/23 23:42
*ED COVID-19 Vaccine History Last Done: 07/05/23 01:51
*Nursing Disposition Last Done: 07/05/23 01:51
OL-Bihtkx-Cnwkgtsdak Assessment Last Done: 07/04/23 23:42
ED-Female Genitourinary Assessment Last Done: 07/04/23 23:42
Discharge Date and Time
Discharge Date/Time: 07/05/23 01:58
Print Language: [place]
[2023-07-04] MEDS: TORADOL 15 MG IV (23:33)
[2023-07-04] MEDS: BENADRYL 12.5 MG IV (23:33)
[2023-07-04] MEDS: NSS 500 IV (23:33)
[2023-07-04] MEDS: DILAUDID 0.5 MG IV ×2 (23:34→23:49)
[2023-07-04 23:41] LABS: % Basophils 0.6 % (0-2); % Eosinophils 1.9 % (0-6); % Immature Granulocytes 0.2 % (0-0.5); % Lymphocytes 31.3 % (20.5-51.1); % Monocytes 5.9 % (1.7-9.3); % Neutrophils 60.1 % (42.2-75.2); Absolute Basophils 0.1 10^3/uL (0-0.2); Absolute Eosinophils 0.2 10^3/uL (0-0.7); Absolute Lymphocytes 3.1 10^3/uL (1.2-3.4); Absolute Monocytes 0.6 10^3/uL (0.1-0.6); Absolute Neutrophils 5.9 10^3/uL (1.4-6.5); Hemoglobin 12.5 g/dL (12.0-16.0); Mean Corp Hgb Conc. 34.7 g/dL (33.0-37.0); Mean Corpuscular Volume 86.3 fL (81.0-99.0); Mean Platelet Volume 10.3 fL (7.4-10.4); Nucleated Red Blood Cells % 0 %; Platelet Count 292 10^3/uL (130-400); Red Blood Cell Count 4.17 10^6/uL (4.20-5.40); Red Cell Dist. Width 12.4 % (11.5-14.5); White Blood Cell Count 9.9 10^3/uL (4.8-10.8)
[2023-07-04 23:48] LABS: Urine Albumin Negative (Neg - Trace); Urine Bilirubin Negative (Negative); Urine Character Slightly Cloudy (Clear); Urine Color Yellow; Urine Glucose Negative (Negative); Urine Ketone Negative (Negative); Urine Leukocyte Trace (Negative); Urine Nitrite Negative (Negative); Urine Occult Blood Negative (Negative); Urine Urobilinogen Negative (Neg - 1+)
[2023-07-04 23:50] LABS: Urine Amorphous Seen; Urine Squamous Cell 0-2 /LPF (Few)
[2023-07-04 23:51] LABS: Urine Bacteria Moderate (Negative); Urine Red Blood Cell None Seen /HPF (0-2); Urine White Cell 0-2 /HPF (0-5)
[2023-07-04 23:57] LABS: HCG, Urine Qualitative Screen Negative
[2023-07-05 00:10] LABS: Blood Urea Nitrogen 18 mg/dl (7-17); Calcium 9.4 mg/dl (8.4-10.2); Carbon Dioxide 17 mmol/L (22-30); Chloride 109 mmol/L (98-107); Glucose 95 mg/dl (70-99); Sodium 133 mmol/L (135-145); eGFR > 60.00
[2023-07-05] MEDS: BENADRYL 25 MG IV (00:37)
--- NOTE | 2023-07-05 00:44 | EDRN ---
Patient reports itchy from the dilaudid and needing more benadryl, Dr. Perez aware and ordered meds for this, gave to patient, she reports pain has improved.
== END 2023-07-05 01:58 | disposition home or self-care (01) ==
LOC: EMR 22:53
PROVIDERS: EMERGENCY PHYSICIAN Emergency Medicine; FAMILY PHYSICIAN Family Medicine
DX: R10.31 Right lower quadrant pain (principal); R11.0 Nausea; N20.0 Calculus of kidney; M79.7 Fibromyalgia; K21.9 Gastro-esophageal reflux disease without esophagitis; K58.9 Irritable bowel syndrome, unspecified; N80.9 Endometriosis, unspecified; G43.909 Migraine, unspecified, not intractable, without status migrainosus; Z87.442 Personal history of urinary calculi; Z87.891 Personal history of nicotine dependence
CPT/HCPCS: 99284; 76775; 80048; 81003; 81015; 81025; 85025; 87086

== ENCOUNTER 2023-07-19 00:17 | Emergency (ER) | payer MEDICARE, OTHER, SELFPAY ==
[2023-07-19 00:18] VITALS: BMI 23.7
[2023-07-19 00:20] VITALS: BP 88/62
--- NOTE | 2023-07-19 00:34 | ED.GENMED ---
History of Present Illness
General
Chief Complaint: Headache
Source: patient
Time Seen by Provider: 07/19/23 00:19
Travel History
Have you had any contact with someone who has COVID-19?: No
Do you have any symptoms of coronavirus? Fever > 100 degrees, chills, cough, shortness of breath, sore throat, loss of taste or smell, muscle aches, or headache?: No
History of Present Illness
History of Present Illness:
52-year-old female presents to the emergency room complaining of headache. Patient has a history of migraines. She began having a headache this morning that was significant. She took Excedrin with some relief. The headache returned this evening
and then became quite severe. The patient was evidently screaming because of her headache. Daughter called 911. Medics gave the patient 50 mcg of fentanyl because she was screaming. Her pain is much better but now she feels nauseous and her
mouth is dry. She denies any focal weakness. Patient has history of hemiplegic migraines at times. However today she has no focal weakness numbness or tingling.
Past History
Past History
ED Past Medical History: Fibromyalgia, GERD and Other (kidney stones, migraines, irritable bowel syndrome, endometriosis, Pericarditis, Pyelonephritis, Sleep apnean, CPCP)
ED Past Surgical History: (�2), Gynecological (Laparoscopy �3), Tonsilectomy and Urological (Ureteroscopy with stone removal and stent placement 2013 as well as 10/24/2017.)
Social History
Tobacco: Former smoker
Alcohol: Occasional
Drug: None
Personal:
Living: with family
Employment: Not employed
Family History
Family History: Other (non contributory)
Phy Exam
Physical Exam
Physical Exam:
General: Awake, Alert, Oriented X3. No acute distress.
Vitals: unremarkable
Head: Atraumatic
Eyes: Pupils equal, EOMI
Throat: Airway intact, no exudates, dry mucosa
Neck: Trachea midline
Lungs: Clear and equal b/l
Heart: Regular rate, no murmurs
Abd: Soft, Nontender, No pulsatile mass
Neuro: Cranial nerves intact, muscle strength equal bilaterally, cerebellar exam normal
Skin: Warm, dry, no rash
Extremities: pulses equal b/l, no edema
Course
Orders/Labs/Results
Orders:
Orders
07/19/23 00:34
CT Head W/o Iv Contrast Urgent
Comment:
Reason For Exam: headache
0.9% Sodium Chloride 1000 ml [Nss] 1,000 ml IV BOLUS
07/19/23 00:49
Diphenhydramine [Benadryl] 25 mg IV NOW STA
Prochlorperazine [Compazine] 10 mg IV NOW STA
07/19/23 00:57
Test Result ONCE
07/19/23 01:30
Basic Metabolic Panel Urgent
Complete Blood Count/With Diff Urgent
HCG, Serum Qualitative Screen Urgent
07/19/23 03:31
0.9% Sodium Chloride 500 ml [Nss] 500 ml IV BOLUS
Abnormal Lab Results
07/19/23
01:30
RBC 3.57 L 10^6/uL
(4.20-5.40)
Hgb 10.5 L g/dL
(12.0-16.0)
Hct 31.7 L %
(37.0-47.0)
Lymphocytes % 20.1 L %
(20.5-51.1)
Potassium 2.8 L mmol/L
(3.5-5.1)
Chloride 115 H mmol/L
(98-107)
Carbon Dioxide 19 L mmol/L
(22-30)
Glucose 126 H mg/dl
(70-99)
Calcium 7.6 L mg/dl
(8.4-10.2)
07/19/23 01:30
07/19/23 01:30
Vital Signs
Initial and Last Documented VS:
Initial Vital Signs
Temp Pulse Resp BP Pulse Ox
98.6 F 94 16 88/62 98
07/19/23 00:20 07/19/23 00:20 07/19/23 00:20 07/19/23 00:20 07/19/23 00:20
Last Documented Vital Signs
Temp Pulse Resp BP Pulse Ox
98.6 F 75 16 82/58 100
07/19/23 00:20 07/19/23 01:28 07/19/23 01:28 07/19/23 03:29 07/19/23 03:12
MDM/Problems Addressed
Differential Diagnosis Includes:
Migraine headache, subdural, subarachnoid
MDM/Problems Addressed:
CT shows no acute abnormality. Patient's headache better with migraine cocktail. She is anxious to go home. Blood pressures were a bit low on some measurements however the patient was able to ambulate without difficulty. She will go home and
push the fluids. Suspect potassium and bicarb are low from hyperventilation.
*Pulse Oximetry
Patient hypoxic: no
*Critical Care Note
Total Time (30-74mins, 75-104mins- exclusive of procedures): Not Applicable
ED Attending Note
-
Portions of this chart may have been created with voice recognition software.� Occasional wrong word or��sound alike� substitutions may have occurred due to the inherent limitations of voice recognition software.
Discharge Plan
Departure
Patient Disposition: Home (Routine Discharge)
Date of Disposition: 07/19/23
Time of Disposition: 03:32
Patient with high blood pressure during this ER visit?: No
Condition: Good
Discharge Problem:
Migraine
Instructions: Migraines (DC)
Prescriptions:
No Action
escitalopram oxalate 10 MG tablet
20 mg PO DAILY
topiramate 25 MG tablet
50 mg PO BID
loratadine 10 MG tablet
10 mg PO DAILY
docusate sodium 100 MG capsule
200 mg PO BID
lansoprazole 30 MG tablet,disintegrat, delay rel
30 mg PO DAILY
multivitamin Tablet
1 tab PO DAILY
tizanidine [Zanaflex] 4 mg Tablet
4 mg PO HS
amitriptyline 10 mg Tablet
10 mg PO DAILY
norethindrone acetate 5 mg Tablet
5 mg PO DAILY
oxycodone-acetaminophen [Percocet] 5-325 mg Tablet
1 tab PO Q6HPRN PRN (Reason: pain) Qty: 8 0RF
tamsulosin [Flomax] 0.4 mg Capsule
0.4 mg PO DAILY Qty: 7 0RF
ondansetron 4 mg Tablet,Disintegrating
4 mg PO TIDPRN PRN (Reason: nausea/vomiting) Qty: 12 0RF
ketorolac 10 mg tablet
10 mg PO Q8H PRN (Reason: Pain) Qty: 14 0RF
Rx Instructions:
maximum total duration of 5 days from all oral, intranasal, or parenteral formulations
Referrals:
Josiah Whittaker DO [Family Provider] -
Interventions
Interventions:
*Risk Screen - Suicide Last Done: 07/19/23 00:20
*General Assessment Last Done: 07/19/23 00:20
*Neglect/Abuse Screening Last Done: 07/19/23 00:20
ED- Fall Risk Assessment Last Done: 07/19/23 00:25
*ED COVID-19 Vaccine History Last Done: 07/19/23 00:20
*Nursing Disposition Last Done: 07/19/23 04:02
ED- Neurological Assessment Last Done: 07/19/23 00:31
Discharge Date and Time
Discharge Date/Time: 07/19/23 04:03
Print Language: DANISH
[2023-07-19] MEDS: NSS 1000 IV (00:47)
[2023-07-19] MEDS: BENADRYL 25 MG IV (00:52)
[2023-07-19] MEDS: COMPAZINE 10 MG IV (00:52)
[2023-07-19 01:26] VITALS: BP 90/59
[2023-07-19 01:34] LABS: % Basophils 0.3 % (0-2); % Eosinophils 1.6 % (0-6); % Immature Granulocytes 0.3 % (0-0.5); % Lymphocytes 20.1 % (20.5-51.1); % Monocytes 5.8 % (1.7-9.3); % Neutrophils 71.9 % (42.2-75.2); Absolute Eosinophils 0.1 10^3/uL (0-0.7); Absolute Lymphocytes 1.7 10^3/uL (1.2-3.4); Absolute Monocytes 0.5 10^3/uL (0.1-0.6); Absolute Neutrophils 6.2 10^3/uL (1.4-6.5); Hematocrit 31.7 % (37.0-47.0); Hemoglobin 10.5 g/dL (12.0-16.0); Mean Corp Hgb Conc. 33.1 g/dL (33.0-37.0); Mean Corpuscular Hgb 29.4 pg (27.0-31.0); Mean Corpuscular Volume 88.8 fL (81.0-99.0); Mean Platelet Volume 10.2 fL (7.4-10.4); Nucleated Red Blood Cells % 0 %; Platelet Count 215 10^3/uL (130-400); Red Blood Cell Count 3.57 10^6/uL (4.20-5.40); Red Cell Dist. Width 12.3 % (11.5-14.5); White Blood Cell Count 8.7 10^3/uL (4.8-10.8)
[2023-07-19 01:47] LABS: HCG, Serum Qualitative Screen Negative
[2023-07-19 01:49] LABS: Blood Urea Nitrogen 12 mg/dl (7-17); Calcium 7.6 mg/dl (8.4-10.2); Carbon Dioxide 19 mmol/L (22-30); Chloride 115 mmol/L (98-107); Estimated Creatinine Clearance 64 ml/min; Glucose 126 mg/dl (70-99); Potassium 2.8 mmol/L (3.5-5.1); Sodium 141 mmol/L (135-145); eGFR > 60.00
[2023-07-19 03:00] VITALS: BP 77/50
[2023-07-19 03:16] VITALS: BP 83/54
[2023-07-19 03:29] VITALS: BP 82/58
== END 2023-07-19 04:03 | disposition home or self-care (01) ==
LOC: EMR 00:17
PROVIDERS: EMERGENCY PHYSICIAN Emergency Medicine; FAMILY PHYSICIAN Family Medicine
DX: G43.909 Migraine, unspecified, not intractable, without status migrainosus (principal); Z87.891 Personal history of nicotine dependence
CPT/HCPCS: 99284; 96374; 96375; 96361; 70450; 80048; 84703; 85025

== ENCOUNTER → 2023-12-17 17:52 | Outpatient (REF) | payer MEDICARE, OTHER, SELFPAY | LOC: CLAB 17:52 | PROVIDERS: ATTENDING PHYSICIAN Specialist | DX: N39.0 Urinary tract infection, site not specified (principal); N20.0 Calculus of kidney | CPT/HCPCS: 36415; 74018; 81003; 87086 ==

== ENCOUNTER → 2023-12-18 11:19 | Outpatient (REF) | payer MEDICARE, OTHER, SELFPAY | LOC: RAD 11:19 | PROVIDERS: ATTENDING PHYSICIAN Specialist; FAMILY PHYSICIAN Family Medicine | DX: N20.0 Calculus of kidney (principal) | CPT/HCPCS: 76770 ==

== ENCOUNTER 2024-01-07 01:59 | Emergency (ER) | payer MEDICARE, OTHER, SELFPAY ==
[2024-01-07 02:03] VITALS: BP 109/88
[2024-01-07 03:06] VITALS: BP 118/90
[2024-01-07] MEDS: BENADRYL 25 MG IV (03:30)
[2024-01-07] MEDS: TORADOL 15 MG IV ×2 (03:30→05:44)
[2024-01-07] MEDS: COMPAZINE 10 MG IV (03:30)
[2024-01-07 04:00] VITALS: BP 111/81
--- NOTE | 2024-01-07 04:25 | ED.GENMED ---
History of Present Illness
General
Chief Complaint: Headache
Source: patient and previous hospital records (Previous hospitalization April of this year for headache with hemiplegia. Unremarkable MRI, diagnosed with hemiplegic migraine. Previous ED for migraine headache June of this year.)
Exam Limitations: none
Time Seen by Provider: 01/07/24 03:14
Nursing documentation reviewed up to this point in time: agreed with
History of Present Illness
History of Present Illness:
This is a 53-year-old woman with longstanding history of migraine headaches as well as history of hemiplegic migraines. She follows with neurologist, Dr. Swift with last visit approximately 1 month ago. Contemplating initiation of injectable
preventative medication.
She presents with generalized headache that initially began Thursday, 3 days ago, temporized with oral Toradol but has not completely resolved and no improvement with a dose of Maxalt as well as Fioricet which she took yesterday. Her last dose of
oral Toradol was over 24 hours ago.
She denies weakness nor numbness, no fever nor chills, no URI symptoms, no neck pain. She admits to intermittent nausea but has had no vomiting.
She does admit to mild photophobia but no vision difficulty nor vision loss.
Headache feels very similar to her previous migraines which generally occur once or twice a month.
Previous hospitalization April of this year reviewed. Patient presented with headache with left-sided numbness. No evidence of stroke on MRI, suspected hemiplegic migraine.
Previous ED visit June of this year when patient presented with headache, initially screaming and required IV fentanyl prehospital. Treated with typical cocktail of Compazine and Benadryl with relief. CT of the head as well as laboratory studies
all unremarkable during that ED visit in June.
Past History
Past History
ED Past Medical History: Fibromyalgia, GERD and Other (kidney stones, migraines, hemiplegic migraines, irritable bowel syndrome, endometriosis, Pericarditis, Pyelonephritis, Sleep apnea)
ED Past Surgical History: (�2), Gynecological (Laparoscopy �3), Tonsilectomy and Urological (Ureteroscopy with stone removal and stent placement 2013 as well as 10/24/2017.)
Social History
Tobacco: Former smoker
Alcohol: Occasional
Drug: None
Personal:
Living: with family
Employment: Disabled
Family History
Family History: Other (non contributory)
Phy Exam
Physical Exam
Physical Exam:
GENERAL: 53-year-old woman appears her stated age, awake and alert, speaking in a soft, whispering voice. Lying Semi-Sánchez's in a dark room. Overall appears in no acute distress. Male significant other is accompanying.
EYE: pupils equal and reactive. Extraocular muscles intact. Anicteric
NECK: Supple, nontender, no meningismus, no significant adenopathy.
ENT: oral mucosa is moist. No rhinorrhea.
CARDIAC: Regular rate and rhythm. no murmur.
LUNGS: Clear breath sounds bilaterally, no acute respiratory distress, no wheezes/rales/rhonchi
ABDOMEN: Soft, nondistended, without focal tenderness
NEUROLOGICAL: Alert and oriented x3, no focal neuro deficits. Gait is leon and steady.
SKIN: Warm and dry, normal color, skin intact. No rash.
MUSCULOSKELETAL: No C/C/E. peripheral pulses are full and equal b/l. No palpable tenderness.
PSYCH: Normal and appropriate interaction.
Course
Orders/Labs/Results
Orders:
Orders
01/07/24 03:14
Diphenhydramine [Benadryl] 25 mg IV NOW STA
Ketorolac [Toradol] 15 mg IV NOW STA
Prochlorperazine [Compazine] 10 mg IV NOW STA
01/07/24 05:23
0.9% Sodium Chloride 500 ml [Nss] 500 ml IV BOLUS
Dexamethasone Sod Phosphate [Decadron] 10 mg IV NOW STA
Ketorolac [Toradol] 15 mg IV NOW STA
Vital Signs
Initial and Last Documented VS:
Initial Vital Signs
Temp Pulse Resp BP Pulse Ox
98.6 F 92 20 109/88 98
01/07/24 02:03 01/07/24 02:03 01/07/24 02:03 01/07/24 02:03 01/07/24 02:03
Last Documented Vital Signs
Temp Pulse Resp BP Pulse Ox
98.6 F 92 20 111/81 99
01/07/24 02:03 01/07/24 02:03 01/07/24 02:03 01/07/24 04:00 01/07/24 04:54
MDM/Problems Addressed
Differential Diagnosis Includes:
Patient presents with exacerbation of migraine headache. Similar headaches in the past.
No focal neurodeficits, no red flags in history nor exam to suggest subdural/subarachnoid hemorrhage. Previous unremarkable imaging June as well as April of this year.
Nothing in history nor exam to suggest acute infectious process.
Will treat with IV Compazine, Benadryl, Toradol.
Chronic conditions affecting care: Other (History of migraine headaches, history of occasional hemiplegic migraines)
*Pulse Oximetry
Patient hypoxic: no
*Critical Care Note
Total Time (30-74mins, 75-104mins- exclusive of procedures): Not Applicable
Update Note
Update Note:
01/07/2024 0523 AM
Patient resting comfortably, reports moderate improvement of headache but continues with headache especially when lying supine, improves when sitting up.
Will give an additional IV dose of Toradol 15 mg, will give an IV dose of Decadron and some IV fluids and continue to observe.
01/07/2024 0644 AM
Patient sleeping upon reevaluation.
Headache has resolved.
Will plan for discharge to home with recommendations for prompt follow-up with neurologist for further evaluation.
ED Attending Note
-
Portions of this chart may have been created with voice recognition software.� Occasional wrong word or��sound alike� substitutions may have occurred due to the inherent limitations of voice recognition software.
Discharge Plan
Departure
Patient Disposition: Home (Routine Discharge)
Date of Disposition: 01/07/24
Time of Disposition: 06:45
Patient with high blood pressure during this ER visit?: No
Condition: Good
Discharge Problem:
ACUTE MIGRAINE HEADACHE
Instructions: Migraines (DC)
Prescriptions:
No Action
escitalopram oxalate 10 MG tablet
20 mg PO DAILY
topiramate 25 MG tablet
50 mg PO BID
loratadine 10 MG tablet
10 mg PO DAILY
docusate sodium 100 MG capsule
200 mg PO BID
lansoprazole 30 MG tablet,disintegrat, delay rel
30 mg PO DAILY
multivitamin Tablet
1 tab PO DAILY
tizanidine [Zanaflex] 4 mg Tablet
4 mg PO HS
amitriptyline 10 mg Tablet
10 mg PO DAILY
norethindrone acetate 5 mg Tablet
5 mg PO DAILY
oxycodone-acetaminophen [Percocet] 5-325 mg Tablet
1 tab PO Q6HPRN PRN (Reason: pain) Qty: 8 0RF
tamsulosin [Flomax] 0.4 mg Capsule
0.4 mg PO DAILY Qty: 7 0RF
ondansetron 4 mg Tablet,Disintegrating
4 mg PO TIDPRN PRN (Reason: nausea/vomiting) Qty: 12 0RF
ketorolac 10 mg tablet
10 mg PO Q8H PRN (Reason: Pain) Qty: 14 0RF
Rx Instructions:
maximum total duration of 5 days from all oral, intranasal, or parenteral formulations
Referrals:
Olegario Swift MD [Non-Admitting Privileges] - Call in 1-3 days for appt
PRIVATE,PHYSICIAN [Family Provider] -
Interventions
Interventions:
*Risk Screen - Suicide Last Done: 01/07/24 02:03
*General Assessment Last Done: 01/07/24 03:43
*Neglect/Abuse Screening Last Done: 01/07/24 02:03
*ED COVID-19 Vaccine History Last Done: 01/07/24 02:03
ED- Neurological Assessment Last Done: 01/07/24 03:43
Discharge Date and Time
Print Language: GEORGIAN
[2024-01-07 05:07] VITALS: BP 103/74
[2024-01-07] MEDS: NSS 500 IV (05:44)
[2024-01-07] MEDS: DECADRON 10 MG IV (05:44)
[2024-01-07 06:00] VITALS: BP 110/86
[2024-01-07 07:00] VITALS: BP 121/94
== END 2024-01-07 07:30 | disposition home or self-care (01) ==
LOC: EMR 01:59
PROVIDERS: EMERGENCY PHYSICIAN Emergency Medicine
DX: G43.909 Migraine, unspecified, not intractable, without status migrainosus (principal); M79.7 Fibromyalgia; K21.9 Gastro-esophageal reflux disease without esophagitis; K58.9 Irritable bowel syndrome, unspecified; N80.9 Endometriosis, unspecified; I31.9 Disease of pericardium, unspecified; G47.30 Sleep apnea, unspecified; Z87.442 Personal history of urinary calculi; Z87.891 Personal history of nicotine dependence
CPT/HCPCS: 99282; 96374; 96375; 96376

== ENCOUNTER 2024-02-25 21:56 | Emergency (ER) | payer MEDICARE, OTHER, SELFPAY ==
[2024-02-25 22:05] VITALS: BP 130/92
[2024-02-25 22:48] LABS: COVID-19 Antigen Negative (Negative)
[2024-02-25 23:22] VITALS: BP 119/94; BMI 23.2
[2024-02-26] MEDS: TYLENOL 1000 MG PO (00:13)
[2024-02-26] MEDS: NSS 1000 IV (00:16)
--- NOTE | 2024-02-26 00:34 | ED.GENMED ---
History of Present Illness
General
Chief Complaint: Cold/Flu/URI Symptoms
Time Seen by Provider: 02/25/24 23:59
History of Present Illness
History of Present Illness:
Patient is a 53-year-old woman with history of hemiplegic migraine presenting to the emergency department with flulike symptoms. Patient states for the past 4 days she has been having fever aches congestion and a productive cough. She did test for
flu at home. She has been having dizziness when she changes position. She has been eating less secondary to nausea. Today she developed some sinus pressure and tingling in her hands. She has a history of numbness to her right extremity when she
has migraines. She denies any chest pain. No difficulty breathing. No diarrhea. She has been taking Tylenol Motrin as well as DayQuil.
Past History
Past History
ED Past Medical History: Fibromyalgia, GERD and Other (kidney stones, migraines, hemiplegic migraines, irritable bowel syndrome, endometriosis, Pericarditis, Pyelonephritis, Sleep apnea)
ED Past Surgical History: (�2), Gynecological (Laparoscopy �3), Tonsilectomy and Urological (Ureteroscopy with stone removal and stent placement 2013 as well as 10/24/2017.)
Social History
Tobacco: Former smoker
Alcohol: Occasional
Drug: None
Personal:
Living: with family
Employment: Disabled
Family History
Family History: Other (non contributory)
Phy Exam
Physical Exam
Physical Exam:
GENERAL: in no acute distress
HEENT: normocephalic, extraocular movements intact, dry oral mucosa
NECK: normal inspection
RESPIRATORY: no respiratory distress, clear to auscultation bilaterally
CARDIOVASCULAR: regular rate and rhythm
ABDOMEN/: soft, non-distended, non-tender to palpation, no rebound or guarding
EXTREMITIES: non-tender, no edema/swelling
NEUROLOGIC: awake and alert, moves all extremities
SKIN: warm
Course
Orders/Labs/Results
Orders:
Orders
02/25/24 21:58
Electrocardiogram (*1) Urgent
Reason for Study: Vertigo / Dizzy
EKG- Treatment ONCE
02/25/24 22:09
BMP [Basic Metabolic Panel] Urgent
Complete Blood Count/With Diff Urgent
CR Chest - 2 Views Urgent
Comment:
Reason For Exam: cough/fever
02/25/24 22:29
COVID-19 Antigen Urgent
Source: Nasal Swab
Influenza A+B Rapid Molecular Urgent
TOD Source: Nasal Swab
Specimen Description:
02/25/24 22:[address] [CT Head W/o Iv Contrast] Urgent
Comment:
Reason For Exam: headache, bilateral tingling in hands
02/26/24 00:00
Acetaminophen [Tylenol] 1,000 mg PO NOW STA
02/26/24 00:16
0.9% Sodium Chloride 1000 ml [Nss] 1,000 ml IV BOLUS
02/26/24 00:34
Ketorolac [Toradol] 15 mg IV NOW STA
Metoclopramide [Reglan] 10 mg IV NOW STA
Abnormal Lab Results
02/26/24
00:15
WBC 3.8 L 10^3/uL
(4.8-10.8)
MCHC 32.9 L g/dL
(33.0-37.0)
MPV 11.0 H fL
(7.4-10.4)
Absolute Lymphs (auto) 0.9 L 10^3/uL
(1.2-3.4)
Immature Gran % 1.1 H %
(0-0.5)
Carbon Dioxide 18 L mmol/L
(22-30)
Creatinine 1.1 H mg/dL
(0.6-1.0)
02/26/24 00:15
02/26/24 00:15
Vital Signs
Initial and Last Documented VS:
Initial Vital Signs
Temp Pulse Resp BP Pulse Ox
100.7 F H 122 20 130/92 99
02/25/24 22:05 02/25/24 22:05 02/25/24 22:05 02/25/24 22:05 02/25/24 22:05
Last Documented Vital Signs
Temp Pulse Resp BP Pulse Ox
98.4 F 87 16 98/70 97
02/26/24 00:58 02/26/24 01:48 02/26/24 01:48 02/26/24 01:48 02/26/24 01:48
MDM/Problems Addressed
Differential Diagnosis Includes:
Patient is a 53-year-old woman presenting to the emergency department with URI symptoms as well as dizziness and tingling to her extremities with sinus pressure. On arrival patient is febrile. On exam her lungs are clear she does not have any
neurodeficits. She does have dry oromucosa. URI symptoms likely viral secondary to the flu. Could be superimposed pneumonia. The dizziness is likely orthostatic given that it happens from sitting to standing. Less likely to be posterior CVA
given no risk factors and normal exam. The numbness tingling could be complex migraine. Will check blood work. CT scan of the head obtained prior to evaluation shows no acute abnormality. Will obtain chest x-ray. Will give IV fluids as well as
migraine cocktail and reassess.
*Critical Care Note
Total Time (30-74mins, 75-104mins- exclusive of procedures): Not Applicable
Update Note
Update Note:
Chest x-ray per my interpretation with no obvious opacity.
On reevaluation patient states that the numbness tingling has resolved. She is slightly feeling better after the medications. She is requesting discharge. Patient educated on medications such as Tylenol Motrin Mucinex as well as saline rinses.
Patient given strict return precautions including recurrent fevers, nausea vomiting or new or worsening neurodeficits
ED Attending Note
-
Portions of this chart may have been created with voice recognition software.� Occasional wrong word or��sound alike� substitutions may have occurred due to the inherent limitations of voice recognition software.
Discharge Plan
Departure
Patient Disposition: Home (Routine Discharge)
Date of Disposition: 02/26/24
Time of Disposition: 02:01
Patient with high blood pressure during this ER visit?: No
Discharge Problem:
Influenza A
Instructions: Flu in adults - ED discharge instructions
Prescriptions:
No Action
escitalopram oxalate 10 MG tablet
20 mg PO DAILY
topiramate 25 MG tablet
50 mg PO BID
loratadine 10 MG tablet
10 mg PO DAILY
docusate sodium 100 MG capsule
200 mg PO BID
lansoprazole 30 MG tablet,disintegrat, delay rel
30 mg PO DAILY
multivitamin Tablet
1 tab PO DAILY
tizanidine [Zanaflex] 4 mg Tablet
4 mg PO HS
amitriptyline 10 mg Tablet
10 mg PO DAILY
norethindrone acetate 5 mg Tablet
5 mg PO DAILY
oxycodone-acetaminophen [Percocet] 5-325 mg Tablet
1 tab PO Q6HPRN PRN (Reason: pain) Qty: 8 0RF
tamsulosin [Flomax] 0.4 mg Capsule
0.4 mg PO DAILY Qty: 7 0RF
ondansetron 4 mg Tablet,Disintegrating
4 mg PO TIDPRN PRN (Reason: nausea/vomiting) Qty: 12 0RF
ketorolac 10 mg tablet
10 mg PO Q8H PRN (Reason: Pain) Qty: 14 0RF
Rx Instructions:
maximum total duration of 5 days from all oral, intranasal, or parenteral formulations
Referrals:
Josiah Whittaker DO [Family Provider] -
Activity Restrictions/Additional Instructions:
You were seen in the Emergency Department today for the flu. While you were here we performed blood work, which was reassuring. Please take the medications including Tylenol Motrin as well as saline rinses as discussed.
We would like for you to follow up with your primary care physician for further evaluation. If you experience fever, worsening of your symptoms, or develop any other new or concerning symptoms, please return to the Emergency Department immediately.
Please see the attached sheet for additional information.
Interventions
Interventions:
*General Assessment Last Done: 02/25/24 22:05
ED- Fall Risk Assessment Last Done: 02/25/24 23:23
*ED COVID-19 Vaccine History Last Done: 02/25/24 23:23
ED- Pulmonary Assessment Last Done: 02/25/24 23:24
Discharge Date and Time
Print Language: BERMUDIAN
[2024-02-26 00:39] LABS: % Basophils 0.3 % (0-2); % Eosinophils 0.3 % (0-6); % Immature Granulocytes 1.1 % (0-0.5); % Lymphocytes 22.6 % (20.5-51.1); % Monocytes 8.8 % (1.7-9.3); % Neutrophils 66.9 % (42.2-75.2); Absolute Lymphocytes 0.9 10^3/uL (1.2-3.4); Absolute Monocytes 0.3 10^3/uL (0.1-0.6); Absolute Neutrophils 2.5 10^3/uL (1.4-6.5); Blood Urea Nitrogen 8 mg/dl (7-17); Calcium 9.4 mg/dl (8.4-10.2); Carbon Dioxide 18 mmol/L (22-30); Chloride 107 mmol/L (98-107); Estimated Creatinine Clearance 52 ml/min; Glucose 93 mg/dl (70-99); Hematocrit 41.7 % (37.0-47.0); Hemoglobin 13.7 g/dL (12.0-16.0); Mean Corp Hgb Conc. 32.9 g/dL (33.0-37.0); Mean Corpuscular Hgb 29.3 pg (27.0-31.0); Mean Corpuscular Volume 89.3 fL (81.0-99.0); Nucleated Red Blood Cells % 0 %; Platelet Count 241 10^3/uL (130-400); Potassium 4.1 mmol/L (3.5-5.1); Red Blood Cell Count 4.67 10^6/uL (4.20-5.40); Red Cell Dist. Width 12.7 % (11.5-14.5); Sodium 141 mmol/L (135-145); White Blood Cell Count 3.8 10^3/uL (4.8-10.8); eGFR > 60.00
[2024-02-26] MEDS: REGLAN 10 MG IV (00:54)
[2024-02-26] MEDS: TORADOL 15 MG IV (00:54)
[2024-02-26 00:58] VITALS: BP 112/84
[2024-02-26 01:48] VITALS: BP 98/70
== END 2024-02-26 02:16 | disposition home or self-care (01) ==
LOC: EMR 21:56
PROVIDERS: EMERGENCY PHYSICIAN Student in an Organized Health Care Education/Training Program; FAMILY PHYSICIAN Family Medicine
DX: J10.1 Influenza due to other identified influenza virus with other respiratory manifestations (principal); K21.9 Gastro-esophageal reflux disease without esophagitis; M79.7 Fibromyalgia; G47.30 Sleep apnea, unspecified; Z87.891 Personal history of nicotine dependence
CPT/HCPCS: 96374; 96375; 96361; 99284; 70450; 71046; 80048; 85025; 87502; 87811; 93005

== ENCOUNTER → 2024-05-10 15:52 | Outpatient (REF) | payer MEDICARE, OTHER, SELFPAY ==
[2024-05-10 16:39] LABS: Urine Albumin Negative (Neg - Trace); Urine Bilirubin Negative (Negative); Urine Character Clear (Clear); Urine Color Yellow; Urine Glucose Negative (Negative); Urine Ketone Negative (Negative); Urine Leukocyte Negative (Negative); Urine Nitrite Negative (Negative); Urine Occult Blood Negative (Negative); Urine Urobilinogen Negative (Neg - 1+)
== END ==
LOC: REG 15:52
PROVIDERS: ATTENDING PHYSICIAN Specialist; FAMILY PHYSICIAN Family Medicine
DX: N39.0 Urinary tract infection, site not specified (principal)
CPT/HCPCS: 81003; 87086

== ENCOUNTER 2024-05-13 13:53 | Emergency (ER) | payer MEDICARE, OTHER, SELFPAY ==
[2024-05-13 14:21] VITALS: BP 127/92
[2024-05-13 15:11] LABS: % Basophils 0.6 % (0-2); % Eosinophils 1.9 % (0-6); % Immature Granulocytes 0.1 % (0-0.5); % Lymphocytes 28.2 % (20.5-51.1); % Monocytes 5.7 % (1.7-9.3); % Neutrophils 63.5 % (42.2-75.2); Absolute Eosinophils 0.1 10^3/uL (0-0.7); Absolute Monocytes 0.4 10^3/uL (0.1-0.6); Absolute Neutrophils 4.4 10^3/uL (1.4-6.5); Hematocrit 39.8 % (37.0-47.0); Hemoglobin 12.8 g/dL (12.0-16.0); Mean Corp Hgb Conc. 32.2 g/dL (33.0-37.0); Mean Corpuscular Hgb 29.7 pg (27.0-31.0); Mean Corpuscular Volume 92.3 fL (81.0-99.0); Mean Platelet Volume 10.6 fL (7.4-10.4); Nucleated Red Blood Cells % 0 %; Platelet Count 286 10^3/uL (130-400); Red Blood Cell Count 4.31 10^6/uL (4.20-5.40); Red Cell Dist. Width 13.3 % (11.5-14.5)
[2024-05-13 15:26] LABS: ALT (SGPT) 21 U/L (0-35); AST (SGOT) 19 U/L (14-36); Albumin 4.5 g/dl (3.5-5.0); Alkaline Phosphatase 96 U/L (38-126); Blood Urea Nitrogen 14 mg/dl (7-17); Calcium 10.3 mg/dl (8.4-10.2); Carbon Dioxide 18 mmol/L (22-30); Chloride 110 mmol/L (98-107); Glucose 101 mg/dl (70-99); HCG, Serum Qualitative Screen Negative; Potassium 4.9 mmol/L (3.5-5.1); Sodium 142 mmol/L (135-145); Total Bilirubin 0.7 mg/dl (0.2-1.3); Total Protein 7.2 g/dl (6.3-8.2); eGFR > 60.00
[2024-05-13 15:33] LABS: Troponin I < 0.012 ng/ml
[2024-05-13 15:57] LABS: Urine Albumin Negative (Neg - Trace); Urine Bilirubin Negative (Negative); Urine Character Cloudy (Clear); Urine Color Yellow; Urine Glucose Negative (Negative); Urine Ketone Negative (Negative); Urine Leukocyte Negative (Negative); Urine Nitrite Negative (Negative); Urine Occult Blood Negative (Negative); Urine Specific Gravity 1.015 (<1.030); Urine Urobilinogen Negative (Neg - 1+)
[2024-05-13 15:57] LABS: TSH 1.43 uIU/ml (0.47-4.68)
[2024-05-13 16:05] LABS: Lipase 204 U/L (23-300)
[2024-05-13 17:20] VITALS: BP 117/97
--- NOTE | 2024-05-13 17:32 | ED.GENMED ---
History of Present Illness
General
Chief Complaint: Fatigue
Source: patient
Time Seen by Provider: 05/13/24 17:21
History of Present Illness
History of Present Illness:
53-year-old female with past medical history of migraines, sleep apnea, kidney stones presenting to the emergency department for evaluation of a multitude of symptoms including earlier in the week developing an initial left-sided flank pain,
gradually became bilateral, increased reflux-like symptoms and then today became fatigued, shaky, exertionally dyspneic, left-sided chest discomfort and generally feeling unwell. No reported fevers, chills, rigors, nausea or vomiting,
dysuria/hematuria/urinary frequency or urgency, bowel changes, URI like symptoms. Patient denies any recent travel or recent antibiotics or medication changes. She did follow-up with her urologist who performed urinalysis and urine culture and
reports that these were unremarkable. She was scheduled to have an outpatient ultrasound of the kidneys as well. Patient without any other concerns.
Past History
Past History
ED Past Medical History: Fibromyalgia, GERD and Other (kidney stones, migraines, hemiplegic migraines, irritable bowel syndrome, endometriosis, Pericarditis, Pyelonephritis, Sleep apnea)
ED Past Surgical History: (�2), Gynecological (Laparoscopy �3), Tonsilectomy and Urological (Ureteroscopy with stone removal and stent placement 2013 as well as 10/24/2017.)
Social History
Tobacco: Former smoker
Alcohol: Occasional
Drug: None
Personal:
Living: with family
Employment: Disabled
Family History
Family History: Other (non contributory)
Review of Systems
Review of Systems
All Other Systems: ROS reviewed and negative except as documented in HPI and ROS
Phy Exam
Physical Exam
Physical Exam:
GENERAL: Alert , in no apparent distress
HEAD: Normocephalic atraumatic
EYE: Clear conjunctiva
NECK: Supple
ENT: o/p clr, mmm.
CARDIAC: Regular rate and rhythm, no murmur.
LUNGS: Clear breath sounds bilaterally, no acute respiratory distress, no wheezes/rales/rhonchi
ABDOMEN: Soft, without focal tenderness, no r/g, no cvat
NEUROLOGICAL: Alert and oriented
SKIN: Warm and dry, skin intact.
MUSCULOSKELETAL: well perfused.
PSYCH: Normal and appropriate interaction.
Scores
Heart Failure Risk
Heart Failure Risk Score: Not Applicable
Heart Score for Chest Pain Patients
STEMI patient?: Not applicable
Withdrawal Assessment of Alcohol
Withdrawal Assessment Completed?: Not applicable
Course
Orders/Labs/Results
Orders:
Orders
05/13/24 14:25
Electrocardiogram (*1) Urgent
Reason for Study: Shortness of Breath
05/13/24 14:26
EKG- Treatment ONCE
Test Result ONCE
05/13/24 14:47
Complete Blood Count/With Diff Urgent
Comprehensive Metabolic Panel Urgent
HCG, Serum Qualitative Screen Urgent
Lipase Urgent
TSH Urgent
Troponin I Urgent
05/13/24 15:41
Urinalysis Reflex To Culture Urgent
Date Specimen was Collected: 05/13/24
Time Specimen was Collected: 14:26
05/13/24 17:45
D-Dimer Urgent
Troponin I Urgent
Abnormal Lab Results
05/13/24
14:47
MCHC 32.2 L g/dL
(33.0-37.0)
MPV 10.6 H fL
(7.4-10.4)
Chloride 110 H mmol/L
(98-107)
Carbon Dioxide 18 L mmol/L
(22-30)
Glucose 101 H mg/dl
(70-99)
Calcium 10.3 H mg/dl
(8.4-10.2)
05/13/24 14:47
05/13/24 14:47
Vital Signs
Initial and Last Documented VS:
Initial Vital Signs
Temp Pulse Resp BP Pulse Ox
98.9 F 107 18 127/92 98
05/13/24 14:21 05/13/24 14:21 05/13/24 14:21 05/13/24 14:21 05/13/24 14:21
Last Documented Vital Signs
Temp Pulse Resp BP Pulse Ox
98.1 F 97 20 117/97 97
05/13/24 17:20 05/13/24 17:20 05/13/24 17:20 05/13/24 17:20 05/13/24 17:20
MDM/Problems Addressed
Differential Diagnosis Includes:
Urinary tract infection, renal/ureteral colic, PE, atypical ACS presentation, viral syndrome, anxiety, thyroid disorder
MDM/Problems Addressed:
53-year-old female presenting to the ER for multitude of symptoms centered around feeling fatigued, shaky and generally unwell. Earlier in the week felt as if she may have a urinary tract infection versus kidney stone. Urinalysis here is without
any signs of infection and no hematuria. I have minimal suspicion for urinary complication. Patient had initial lab work done which is overall reassuring including negative troponin and normal TSH. Patient did arrive to the emergency department
mildly tachycardic which seems to have improved while waiting in the waiting room. Will repeat a troponin and add D-dimer onto workup. Disposition pending.
*Pulse Oximetry
Patient hypoxic: no
*EKG
Heart Rate: 82
Rate: normal
Rhythm: sinus
Protivin: normal axis
Ischemia: no ischemia
*Critical Care Note
Total Time (30-74mins, 75-104mins- exclusive of procedures): Not Applicable
Data Reviewed
Review of Other/Old Records Reveals: Labs and Records
Patient Management
Escalation/DeEscalation of care consider admission/obs:
Repeat troponin is negative. D-dimer also negative. At this time I do think it is reasonable for patient to be discharged home with close outpatient follow-up. Aware of return precautions to the ER but otherwise stable.
ED Attending Note
-
Portions of this chart may have been created with voice recognition software.� Occasional wrong word or��sound alike� substitutions may have occurred due to the inherent limitations of voice recognition software.
Discharge Plan
Departure
Patient Disposition: Home (Routine Discharge)
Date of Disposition: 05/13/24
Time of Disposition: 18:22
Patient with high blood pressure during this ER visit?: No
Discharge Problem:
Shortness of breath, Fatigue, Chest pain
Instructions: Fatigue (DC)
Prescriptions:
No Action
escitalopram oxalate 10 MG tablet
20 mg PO DAILY
topiramate 25 MG tablet
50 mg PO BID
loratadine 10 MG tablet
10 mg PO DAILY
docusate sodium 100 MG capsule
200 mg PO BID
lansoprazole 30 MG tablet,disintegrat, delay rel
30 mg PO DAILY
multivitamin Tablet
1 tab PO DAILY
tizanidine [Zanaflex] 4 mg Tablet
4 mg PO HS
amitriptyline 10 mg Tablet
10 mg PO DAILY
norethindrone acetate 5 mg Tablet
5 mg PO DAILY
oxycodone-acetaminophen [Percocet] 5-325 mg Tablet
1 tab PO Q6HPRN PRN (Reason: pain) Qty: 8 0RF
tamsulosin [Flomax] 0.4 mg Capsule
0.4 mg PO DAILY Qty: 7 0RF
ondansetron 4 mg Tablet,Disintegrating
4 mg PO TIDPRN PRN (Reason: nausea/vomiting) Qty: 12 0RF
ketorolac 10 mg tablet
10 mg PO Q8H PRN (Reason: Pain) Qty: 14 0RF
Rx Instructions:
maximum total duration of 5 days from all oral, intranasal, or parenteral formulations
Referrals:
Josiah Whittaker DO [Family Provider] -
Interventions
Interventions:
*Risk Screen - Suicide Last Done: 05/13/24 14:21
*General Assessment Last Done: 05/13/24 18:35
*Neglect/Abuse Screening Last Done: 05/13/24 14:21
*ED- Fall Risk Assessment Last Done: 05/13/24 18:35
*ED COVID-19 Vaccine History Last Done: 05/13/24 18:35
*Nursing Disposition Last Done: 05/13/24 18:35
Discharge Date and Time
Discharge Date/Time: 05/13/24 18:35
Print Language: KINYARWANDA
[2024-05-13 18:05] LABS: D-Dimer 0.43 ug/mlFEU (0.00-0.50)
[2024-05-13 18:18] LABS: Troponin I < 0.012 ng/ml
== END 2024-05-13 18:35 | disposition home or self-care (01) ==
LOC: EMR 13:53
PROVIDERS: Physician Assistant Medical; Student in an Organized Health Care Education/Training Program; EMERGENCY PHYSICIAN Emergency Medicine; FAMILY PHYSICIAN Family Medicine
DX: R07.89 Other chest pain (principal); R06.02 Shortness of breath; R53.83 Other fatigue; Z87.891 Personal history of nicotine dependence
CPT/HCPCS: 99284; 80053; 81003; 83690; 84443; 84484; 84703; 85025; 85379; 93005

== ENCOUNTER → 2024-05-18 12:16 | Outpatient (REF) | payer MEDICARE, OTHER, SELFPAY | LOC: HWRAD 12:16 | PROVIDERS: ATTENDING PHYSICIAN Specialist; FAMILY PHYSICIAN Family Medicine | DX: N20.0 Calculus of kidney (principal) | CPT/HCPCS: 76770 ==

== ENCOUNTER → 2024-05-31 09:34 | Outpatient (REF) | payer MEDICARE, OTHER, SELFPAY | LOC: WDC 09:34 | PROVIDERS: ATTENDING PHYSICIAN Obstetrics & Gynecology; FAMILY PHYSICIAN Family Medicine | DX: N64.4 Mastodynia (principal) | CPT/HCPCS: 76642; 77062; 77066 ==

== ENCOUNTER 2024-06-27 14:37 | Emergency (ER) | payer MEDICARE, OTHER, SELFPAY ==
[2024-06-27 14:42] VITALS: BP 111/89
[2024-06-27 15:01] LABS: % Basophils 0.9 % (0-2); % Eosinophils 3.2 % (0-6); % Immature Granulocytes 0.2 % (0-0.5); % Lymphocytes 30.7 % (20.5-51.1); % Monocytes 4.1 % (1.7-9.3); % Neutrophils 60.9 % (42.2-75.2); Absolute Basophils 0.1 10^3/uL (0-0.2); Absolute Eosinophils 0.2 10^3/uL (0-0.7); Absolute Lymphocytes 1.8 10^3/uL (1.2-3.4); Absolute Monocytes 0.2 10^3/uL (0.1-0.6); Absolute Neutrophils 3.6 10^3/uL (1.4-6.5); Hematocrit 39.7 % (37.0-47.0); Hemoglobin 12.9 g/dL (12.0-16.0); Mean Corp Hgb Conc. 32.5 g/dL (33.0-37.0); Mean Corpuscular Hgb 29.3 pg (27.0-31.0); Mean Platelet Volume 10.5 fL (7.4-10.4); Nucleated Red Blood Cells % 0 %; Platelet Count 275 10^3/uL (130-400); Red Blood Cell Count 4.41 10^6/uL (4.20-5.40); Red Cell Dist. Width 12.2 % (11.5-14.5); White Blood Cell Count 5.9 10^3/uL (4.8-10.8)
[2024-06-27 15:19] LABS: ALT (SGPT) 16 U/L (0-35); AST (SGOT) 19 U/L (14-36); Albumin 4.5 g/dl (3.5-5.0); Alkaline Phosphatase 122 U/L (38-126); Blood Urea Nitrogen 15 mg/dl (7-17); Calcium 9.5 mg/dl (8.4-10.2); Carbon Dioxide 22 mmol/L (22-30); Chloride 108 mmol/L (98-107); Glucose 132 mg/dl (70-99); Potassium 4.5 mmol/L (3.5-5.1); Sodium 142 mmol/L (135-145); Total Bilirubin 0.6 mg/dl (0.2-1.3); Total Protein 7.2 g/dl (6.3-8.2); eGFR > 60.00
[2024-06-27 15:23] LABS: Urine Albumin 1+ (Neg - Trace); Urine Bilirubin Negative (Negative); Urine Character Slightly Cloudy (Clear); Urine Color Yellow; Urine Glucose Negative (Negative); Urine Ketone Negative (Negative); Urine Leukocyte Negative (Negative); Urine Nitrite Negative (Negative); Urine Occult Blood Negative (Negative); Urine Urobilinogen Negative (Neg - 1+)
[2024-06-27 15:56] LABS: Urine Squamous Cell 26-30 /LPF (Few)
[2024-06-27 15:57] LABS: Urine Amorphous Seen; Urine Bacteria Many (Negative); Urine Urothelial Cell 0-2 /LPF (FEW); Urine White Cell 0-2 /HPF (0-5)
--- NOTE | 2024-06-27 17:19 | EDRN ---
Patient refused CT scan as she would like to have a ultrasound instead. Patient was informed she will have to wait and be evaluated first.
--- NOTE | 2024-06-27 17:53 | ED.GENMED ---
History of Present Illness
General
Chief Complaint: Flank Pain
Source: patient
Exam Limitations: none
Time Seen by Provider: 06/27/24 17:42
Nursing documentation reviewed up to this point in time: agreed with
History of Present Illness
History of Present Illness:
Patient presents to ED after waking up this morning with lower abdominal cramping sensation, which progressed to severe right flank/mid back pain. Patient has taken Aleve at 1 PM, with gradual improvement symptoms. At the time of exam in ED,
patient states that pain has subsided completely. Patient does have history of kidney stones, and states her symptoms are similar. Denies trauma. Over the past 3 days, patient states that she has had abdominal pain along with diarrhea, which is
improving. Denies recent travel or surgery. Denies recent change in medications or diet.
Past History
Past History
ED Past Medical History: Fibromyalgia, GERD and Other (kidney stones, migraines, hemiplegic migraines, irritable bowel syndrome, endometriosis, Pericarditis, Pyelonephritis, Sleep apnea)
ED Past Surgical History: (�2), Gynecological (Laparoscopy �3), Tonsilectomy and Urological (Ureteroscopy with stone removal and stent placement 2013 as well as 10/24/2017.)
Social History
Tobacco: Former smoker
Alcohol: Occasional
Drug: None
Personal:
Living: with family
Employment: Disabled
Family History
Family History: Other (non contributory)
Review of Systems
Review of Systems
Allergies reviewed?: Yes
All Other Systems: ROS reviewed and negative except as documented in HPI and ROS
Constitutional: Reports no symptoms; Denies fever
ABD/GI: Reports abdominal pain and diarrhea; Denies nausea or vomiting
: Reports flank pain
Musculoskeletal: Reports back pain
Skin: Reports no symptoms
Neurological: Reports no symptoms
Phy Exam
Physical Exam
Physical Exam:
Physical Exam
General: no apparent distress, not acutely ill. afebrile
Head: nc/at. eomi
Neck: supple. no meningeal signs.
Abdomen: normal bowel sounds. diffusely tender to palpation. no distention
Neuro: alert and oriented x 3. no focal neurological deficits
Skin: no rash
Psychiatric: well kept. interactive and cooperative
Extremities: no edema. no calf tenderness.
Course
Orders/Labs/Results
Orders:
Orders
06/27/24 14:52
Complete Blood Count/With Diff Urgent
Comprehensive Metabolic Panel Urgent
Urinalysis Reflex To Culture Urgent
Date Specimen was Collected: 06/27/24
Time Specimen was Collected: 14:47
Urine Microscopic Reflex Cult Urgent
Urine Culture Urgent
TOD Source: U
Specimen Description:
Date Specimen was Collected: 06/27/24
Time Specimen was Collected: 14:47
06/27/24 17:22
Renal Only US [US Renal Only W/O Bladder] Urgent
Comment:
Reason For Exam: Flank pain w hx kidney stones
Abnormal Lab Results
06/27/24
14:52
MCHC 32.5 L g/dL
(33.0-37.0)
MPV 10.5 H fL
(7.4-10.4)
Chloride 108 H mmol/L
(98-107)
Creatinine 1.1 H mg/dL
(0.6-1.0)
Glucose 132 H mg/dl
(70-99)
Urine RBC 3-6 A /HPF
(0-2)
Urine Bacteria (Reflex) Many A
(Negative)
Urine Albumin (Reflex) 1+ A
(Neg - Trace)
06/27/24 14:52
06/27/24 14:52
Vital Signs
Initial and Last Documented VS:
Initial Vital Signs
Temp Pulse Resp BP Pulse Ox
99.2 F 98 20 111/89 100
06/27/24 14:42 06/27/24 14:42 06/27/24 14:42 06/27/24 14:42 06/27/24 14:42
Last Documented Vital Signs
Temp Pulse Resp BP Pulse Ox
97.6 F 82 20 136/85 99
06/27/24 18:12 06/27/24 18:12 06/27/24 18:12 06/27/24 18:12 06/27/24 18:12
MDM/Problems Addressed
MDM/Problems Addressed:
Patient with an unremarkable workup in ED, including blood work and renal ultrasound. As etiology for patient's presenting symptoms unclear, discussed further evaluation and treatment, i.e. CT abdomen pelvis. However, at this time, patient feels
comfortable going home, knowing that we will ultrasound did not reveal obvious large kidney stone nor hydronephrosis. Patient will follow-up with her PCP or urology as an outpatient. Advised return to ED with worsening symptoms, i.e.
fevers/vomiting/inability to urinate. Patient expressed understanding at time of discharge, to the care of her spouse.
*Critical Care Note
Total Time (30-74mins, 75-104mins- exclusive of procedures): Not Applicable
ED Attending Note
-
Portions of this chart may have been created with voice recognition software.� Occasional wrong word or��sound alike� substitutions may have occurred due to the inherent limitations of voice recognition software.
Discharge Plan
Departure
Patient Disposition: Home (Routine Discharge)
Date of Disposition: 06/27/24
Time of Disposition: 19:10
Patient with high blood pressure during this ER visit?: Yes
Condition: Good
Discharge Problem:
Flank pain
Instructions: Flank Pain (DC)
Prescriptions:
No Action
escitalopram oxalate 10 MG tablet
20 mg PO DAILY
topiramate 25 MG tablet
50 mg PO BID
loratadine 10 MG tablet
10 mg PO DAILY
docusate sodium 100 MG capsule
200 mg PO BID
lansoprazole 30 MG tablet,disintegrat, delay rel
30 mg PO DAILY
multivitamin Tablet
1 tab PO DAILY
tizanidine [Zanaflex] 4 mg Tablet
4 mg PO HS
amitriptyline 10 mg Tablet
10 mg PO DAILY
norethindrone acetate 5 mg Tablet
5 mg PO DAILY
oxycodone-acetaminophen [Percocet] 5-325 mg Tablet
1 tab PO Q6HPRN PRN (Reason: pain) Qty: 8 0RF
tamsulosin [Flomax] 0.4 mg Capsule
0.4 mg PO DAILY Qty: 7 0RF
ondansetron 4 mg Tablet,Disintegrating
4 mg PO TIDPRN PRN (Reason: nausea/vomiting) Qty: 12 0RF
ketorolac 10 mg tablet
10 mg PO Q8H PRN (Reason: Pain) Qty: 14 0RF
Rx Instructions:
maximum total duration of 5 days from all oral, intranasal, or parenteral formulations
Referrals:
Josiah Whittaker DO [Family Provider] -
Glynn Ayala Jr., MD [Active] -
Activity Restrictions/Additional Instructions:
As discussed, please follow-up with your primary care physician and/or urologist for further evaluation and treatment. Please consider return to ED for worsening symptoms, i.e. fever/worsening pain/vomiting/inability urinate.
Interventions
Interventions:
*Risk Screen - Suicide Last Done: 06/27/24 14:42
*General Assessment Last Done: 06/27/24 14:42
*Neglect/Abuse Screening Last Done: 06/27/24 14:42
*ED- Fall Risk Assessment Last Done: 06/27/24 18:12
*ED COVID-19 Vaccine History Last Done: 06/27/24 18:12
*Nursing Disposition Last Done: 06/27/24 19:18
TE-Qenxud-Culzyeynbm Assessment Last Done: 06/27/24 18:12
ED-Female Genitourinary Assessment Last Done: 06/27/24 18:12
Discharge Date and Time
Discharge Date/Time: 06/27/24 19:18
Print Language: CITIZEN OF [place]
[2024-06-27 18:12] VITALS: BP 136/85; BMI 26.6
== END 2024-06-27 19:18 | disposition home or self-care (01) ==
LOC: EMR 14:37
PROVIDERS: Emergency Medicine; EMERGENCY PHYSICIAN Emergency Medicine; FAMILY PHYSICIAN Family Medicine
DX: R10.30 Lower abdominal pain, unspecified (principal); M54.9 Dorsalgia, unspecified; G47.30 Sleep apnea, unspecified; Z87.442 Personal history of urinary calculi; Z87.891 Personal history of nicotine dependence
CPT/HCPCS: 99284; 76775; 80053; 81003; 81015; 85025; 87086

== ENCOUNTER 2024-06-30 16:31 | Inpatient (IN) | payer MEDICARE, OTHER, SELFPAY ==
[2024-06-30] VITALS (8 sets, daily range): BP systolic 98–126; BP diastolic 55–92; BMI 24.0
[2024-06-30 11:21] LABS: % Basophils 0.8 % (0-2); % Eosinophils 5.7 % (0-6); % Immature Granulocytes 0.3 % (0-0.5); % Lymphocytes 29.6 % (20.5-51.1); % Monocytes 6.4 % (1.7-9.3); % Neutrophils 57.2 % (42.2-75.2); Absolute Basophils 0.1 10^3/uL (0-0.2); Absolute Eosinophils 0.5 10^3/uL (0-0.7); Absolute Lymphocytes 2.3 10^3/uL (1.2-3.4); Absolute Monocytes 0.5 10^3/uL (0.1-0.6); Absolute Neutrophils 4.5 10^3/uL (1.4-6.5); Hematocrit 36.9 % (37.0-47.0); Hemoglobin 12.2 g/dL (12.0-16.0); Mean Corp Hgb Conc. 33.1 g/dL (33.0-37.0); Mean Corpuscular Hgb 29.8 pg (27.0-31.0); Mean Corpuscular Volume 90.2 fL (81.0-99.0); Mean Platelet Volume 10.7 fL (7.4-10.4); Nucleated Red Blood Cells % 0 %; Platelet Count 243 10^3/uL (130-400); Red Blood Cell Count 4.09 10^6/uL (4.20-5.40); Red Cell Dist. Width 12.2 % (11.5-14.5); White Blood Cell Count 7.9 10^3/uL (4.8-10.8)
[2024-06-30 11:41] LABS: HCG, Serum Qualitative Screen Negative
[2024-06-30 11:46] LABS: ALT (SGPT) 20 U/L (0-35); AST (SGOT) 22 U/L (14-36); Albumin 3.8 g/dl (3.5-5.0); Alkaline Phosphatase 111 U/L (38-126); Blood Urea Nitrogen 27 mg/dl (7-17); Calcium 10.7 mg/dl (8.4-10.2); Carbon Dioxide 23 mmol/L (22-30); Chloride 111 mmol/L (98-107); Glucose 98 mg/dl (70-99); Lipase 204 U/L (23-300); Potassium 5.1 mmol/L (3.5-5.1); Sodium 142 mmol/L (135-145); Total Bilirubin 0.4 mg/dl (0.2-1.3); Total Protein 6.5 g/dl (6.3-8.2); eGFR 54.46
[2024-06-30 11:56] LABS: Urine Albumin Negative (Neg - Trace); Urine Bilirubin Negative (Negative); Urine Character Clear (Clear); Urine Color Yellow; Urine Glucose Negative (Negative); Urine Ketone Negative (Negative); Urine Leukocyte Negative (Negative); Urine Nitrite Negative (Negative); Urine Occult Blood 3+ (Negative); Urine Urobilinogen Negative (Neg - 1+)
--- NOTE | 2024-06-30 12:13 | ED.GENMED ---
History of Present Illness
General
Chief Complaint: Flank Pain
Source: patient
Exam Limitations: none
Time Seen by Provider: 06/30/24 11:55
Nursing documentation reviewed up to this point in time: agreed with
History of Present Illness
History of Present Illness:
53-year-old female presents ER department complaining of right flank pain symptoms ongoing for 2 days. She got an ultrasound 2 days ago and was feeling better and discharged.
Past History
Past History
ED Past Medical History: Fibromyalgia, GERD and Other (kidney stones, migraines, hemiplegic migraines, irritable bowel syndrome, endometriosis, Pericarditis, Pyelonephritis, Sleep apnea)
ED Past Surgical History: (�2), Gynecological (Laparoscopy �3), Tonsilectomy and Urological (Ureteroscopy with stone removal and stent placement 2013 as well as 10/24/2017.)
Social History
Tobacco: Former smoker
Alcohol: Occasional
Drug: None
Personal:
Living: with family
Employment: Disabled
Family History
Family History: Other (non contributory)
Review of Systems
Review of Systems
Allergies reviewed?: Yes
All Other Systems: Not applicable
Constitutional: Reports no symptoms
EENT: Reports no symptoms
Respiratory: Reports no symptoms
Cardiac: Reports no symptoms
ABD/GI: Reports no symptoms
: Reports flank pain
Musculoskeletal: Reports no symptoms
Skin: Reports no symptoms
Neurological: Reports no symptoms
Endocrine: Reports no symptoms
Hematologic/Lymphatic: Reports no symptoms
Psychiatric: Reports no symptoms
Phy Exam
Physical Exam
Physical Exam:
Physical Exam
General: Appears uncomfortable, shouting in the room
Neck: supple. no meningeal signs. normal posterior pharynx
Heart: s1/s2 regular rate and rhythm, no murmur. equal radial
pulses.
HEENT: Pupils equal round reactive to light, EOMI
Lungs: no acute respiratory distress. clear bilaterally
Abdomen: normal bowel sounds. not tender. no CVAT
Neuro: alert and oriented. no focal neurological deficits cranial nerves II through XII intact
Skin: no rash
Psychiatric: well kept. interactive and cooperative
Extremities: no edema. no calf tenderness. negative homans. good distal pulses
Course
Orders/Labs/Results
Orders:
Orders
06/30/24 10:37
EKG with chest pain [ECG as needed] As Directed
ECG as needed for:: Chest Pain
06/30/24 10:53
Electrocardiogram (*1) Urgent
Reason for Study: Abdominal Pain
EKG- Treatment ONCE
IV Insert/Care/Rem.- Treatment PRN
Test Result ONCE
06/30/24 11:02
Urinalysis Reflex To Culture Urgent
Date Specimen was Collected: 06/30/24
Time Specimen was Collected: 10:53
Urine Microscopic Reflex Cult Urgent
06/30/24 11:08
Complete Blood Count/With Diff Urgent
Comprehensive Metabolic Panel Urgent
HCG, Serum Qualitative Screen Urgent
Comment: Notify provider if positive test present
Lipase Urgent
06/30/24 12:10
Ketorolac [Toradol] 15 mg IV NOW STA
Ondansetron Injectable [Zofran] 4 mg IV NOW STA
06/30/24 12:11
CT Abd/pel Without Iv Or Oral Urgent
Comment:
Reason For Exam: right flank pain
06/30/24 13:38
Diphenhydramine [Benadryl] 25 mg IV NOW STA
HYDROmorphone [Dilaudid] 1 mg IV NOW STA
06/30/24 14:26
Diphenhydramine [Benadryl] 25 mg IV NOW STA
Abnormal Lab Results
06/30/24 06/30/24
11:02 11:08
RBC 4.09 L 10^6/uL
(4.20-5.40)
Hct 36.9 L %
(37.0-47.0)
MPV 10.7 H fL
(7.4-10.4)
Chloride 111 H mmol/L
(98-107)
BUN 27 H mg/dl
(7-17)
Creatinine 1.2 H mg/dL
(0.6-1.0)
Calcium 10.7 H mg/dl
(8.4-10.2)
Ur Occult Blood Reflex 3+ A
(Negative)
Urine RBC 3-6 A /HPF
(0-2)
Urine Bacteria (Reflex) Few A
(Negative)
06/30/24 11:08
06/30/24 11:08
Vital Signs
Initial and Last Documented VS:
Initial Vital Signs
Temp Pulse Resp BP Pulse Ox
97.9 F 95 16 122/88 98
06/30/24 10:48 06/30/24 10:48 06/30/24 10:48 06/30/24 10:48 06/30/24 10:48
Last Documented Vital Signs
Temp Pulse Resp BP Pulse Ox
97.9 F 95 20 111/89 97
06/30/24 10:48 06/30/24 10:48 06/30/24 15:36 06/30/24 15:00 06/30/24 15:30
MDM/Problems Addressed
Differential Diagnosis Includes:
Kidney stone, pyelonephritis
MDM/Problems Addressed:
53-year-old male with right ureteral calculus, intractable pain. Admit to hospitalist, for trial of passage and possible OR in a.m. Patient seen by Dr. Deng, urologist.
Chronic conditions affecting care: Other (Kidney stones)
Acute Exacerbation and/or Progression of Chronic Illness: Other (Kidney stones)
*Radiology
Radiology exam reviewed: radiology read reviewed (CT abdomen pelvis shows right ureteral calculus at UVJ)
*Pulse Oximetry
Patient hypoxic: no
*Critical Care Note
Total Time (30-74mins, 75-104mins- exclusive of procedures): Not Applicable
Data Reviewed
Review of Other/Old Records Reveals: Operative Reports (Ureteroscopy 11/11/2021 with ureteral stent)
Source: records
Patient Management
Social determinants of health affecting care: Living situation
Discussion with other providers: Hospitalist and Studio Assistant (Urology Dr. Deng)
Escalation/DeEscalation of care consider admission/obs:
Admit indicated
ED Attending Note
-
Portions of this chart may have been created with voice recognition software.� Occasional wrong word or��sound alike� substitutions may have occurred due to the inherent limitations of voice recognition software.
Discharge Plan
Departure
Patient Disposition: Admit
Date of Disposition: 06/30/24
Time of Disposition: 14:48
Admit to: Med/Surg
Presentation/result/management discussed w/ accepting MD/DO: Hospitalist
Patient with high blood pressure during this ER visit?: Yes
Condition: Good
Discharge Problem:
Calculus of distal right ureter, Hydronephrosis of right kidney
Prescriptions:
No Action
escitalopram oxalate 10 MG tablet
20 mg PO DAILY
topiramate 25 MG tablet
50 mg PO BID
docusate sodium 100 MG capsule
300 mg PO HS
lansoprazole 30 MG tablet,disintegrat, delay rel
30 mg PO DAILY
tizanidine [Zanaflex] 4 mg Tablet
4 mg PO HS
amitriptyline 10 mg Tablet
20 mg PO HS
cetirizine [Zyrtec] 10 mg Tablet
10 mg PO DAILY
naproxen sodium [Aleve] 220 mg Tablet
220 mg PO [id number] PRN (Reason: mild pain)
Fiber Gummies 1.7 gram Tablet,Chewable
3.4 g PO DAILY
norethindrone acetate [Gallifrey] 5 mg Tablet
5 mg PO DIRECTED
Rx Instructions:
take 10 days after your period next dose due 07/01/24
Referrals:
Josiah Whittaker DO [Family Provider] -
Interventions
Interventions:
*Risk Screen - Suicide Last Done: 06/30/24 10:48
*General Assessment Last Done: 06/30/24 12:00
*Neglect/Abuse Screening Last Done: 06/30/24 10:48
*ED- Fall Risk Assessment Last Done: 06/30/24 12:00
*ED COVID-19 Vaccine History Last Done: 06/30/24 12:00
OO-Xueqjs-Vedtukdmsj Assessment Last Done: 06/30/24 12:00
ED-Female Genitourinary Assessment Last Done: 06/30/24 12:00
Discharge Date and Time
Print Language: LAO
[2024-06-30 12:24] LABS: Urine Bacteria Few (Negative); Urine White Cell 0-2 /HPF (0-5)
[2024-06-30] MEDS: TORADOL 15 MG IV (12:55)
[2024-06-30] MEDS: ZOFRAN 4 MG IV (12:55)
--- NOTE | 2024-06-30 13:07 | EDRN ---
pt has continued to be demanding of dilaudid with benadryl IV while yelling, moaning and rolling around in bed, also walking around in room. CT called to ask for pt to be brought to imaging. Dr Alba was also informed of pt behaviors and that pt
education was given again about the benefits of the medications given at this point.
[2024-06-30] MEDS: BENADRYL 25 MG IV ×2 (13:45→14:31)
[2024-06-30] MEDS: DILAUDID 1 MG IV ×2 (13:48→16:21)
--- NOTE | 2024-06-30 16:18 | HPS.HSE ---
Family Physician
-
Family Physician: Josiah Whittaker
Chief Complaint
-
Right Flank Pain
History of Present Illness
Patient is a 53 y/o female past medical history of migraine headache, fibrmyalgia, anxiety/depression, and prior kidney stones requiring stent in the past who presents with right flank pain. Patient has a known stone in the right kidney. She had
some two days ago but states it resolved. This morning she developed recurrent right flank pain which worsening over the coarse of the morning. She denies nausea/vomiting. She denies fevers, sweats or chills.
Medical History
Past Medical History
Past Medical History: Reports Other
Additional Past Medical History:
Fibromyalgia
Migraine Headaches
Anxiety/Depression
Brachial Plexopathy
Endometriosis
Nephrolithiasis
Past Surgical History: Reports Other
Additional Past Surgical History:
Ureteral Stent
Tonsillectomy
Section
Social History
Tobacco: Former Smoker (Quit smoking 25 years ago. < 10 pack years total use.)
Alcohol: Occasional
Drug: None
Family History
Family History: Other (Father: Lung cancer Mother: Fibromyalgia Brother: MS)
Allergies / Home Medications
Allergies reflects when Allergies were last updated in [facility].
Home Medications with original date entered in [facility]
Allergy/Medication List:
Allergies
Allergy/AdvReac Type Severity Reaction Status Date / Time
adhesive Allergy Rash Verified 06/27/24 14:42
chlorpheniramine polistirex Allergy ITCHING Verified 06/27/24 14:42
[From Tussionex] BUT
'RESOLVES
WITH
BENADRYL'
ciprofloxacin [From Cipro] Allergy Anaphylaxis Verified 06/27/24 14:42
ciprofloxacin HCl Allergy Anaphylaxis Verified 06/27/24 14:42
[From Cipro]
doxycycline Allergy muscle Verified 06/27/24 14:42
aches/pain
hydrocodone polistirex Allergy itching, Verified 06/27/24 14:42
[From Tussionex] rash,
difficulty
breathing
Iodinated Contrast Media Allergy Itching Verified 06/27/24 14:42
[Iodinated Contrast- Oral
and IV Dye]
levofloxacin [From Levaquin] Allergy Anaphylaxis Verified 06/27/24 14:42
morphine Allergy itchy Verified 06/27/24 14:42
propoxyphene napsylate Allergy muscle Verified 06/27/24 14:42
[From Darvocet-N 100] spasms
sulfamethoxazole Allergy muscle Verified 06/27/24 14:42
[From Bactrim] weakness
(Bactrim)
trimethoprim [From Bactrim] Allergy muscle Verified 06/27/24 14:42
weakness
(Bactrim)
Home Medications
escitalopram oxalate 10 mg tablet 20 mg PO DAILY Mental Health/Anxiety 02/25/09
topiramate 25 mg tablet 50 mg PO BID Mental Health/Anxiety 07/21/12
docusate sodium 100 mg capsule 300 mg PO HS Constipation 11/27/20
lansoprazole 30 mg delayed release,disintegrating tablet 30 mg PO DAILY Gastrointestinal issue 11/27/20
amitriptyline 10 mg tablet 20 mg PO HS 04/25/23
tizanidine 4 mg tablet (Zanaflex) 4 mg PO HS 04/25/23
cetirizine 10 mg tablet (Zyrtec) 10 mg PO DAILY 06/30/24
inulin 1.7 gram chewable tablet (Fiber Gummies) 3.4 g PO DAILY 06/30/24
naproxen sodium 220 mg tablet (Aleve) 220 mg PO [id number] PRN mild pain 06/30/24
norethindrone acetate 5 mg tablet (Gallifrey) 5 mg PO DIRECTED 06/30/24
Review of Systems
-
A 12 point ROS was completed and negative except as noted: Yes
Constitutional: Denies Fever
Respiratory: Denies Cough or Trouble Breathing
Cardiac: Denies Chest Pain or Palpitations
Abdomen/GI: Reports See HPI
: Reports See HPI
Physical Exam
Vital Signs
Vital Signs
Temp Pulse Resp BP Pulse Ox
97.9 F 95 20 109/92 100
06/30/24 10:48 06/30/24 10:48 06/30/24 15:36 06/30/24 16:00 06/30/24 16:00
Physical Exam
General: Comfortable, Conversant and Pain
HEENT: Anicteric and Moist mucous membranes
Respiratory: Clear and Non Labored Respirations
Cardiac: S1/S2 and Regular Rhythm
GI: Soft and Non Tender
Genito-urinary: Clear Urine
Musculoskeletal: No Clubbing, No Cyanosis and No Edema
Skin: Warm and Dry
Neuro: Awake, Alert, Oriented and Nonfocal/grossly intact
Psych: Calm
Laboratory Results
-
06/30/24 11:08
06/30/24 11:08
Laboratory Results
Total Bilirubin 0.4 mg/dl (0.2-1.3) 06/30/24 11:08
AST 22 U/L (14-36) 06/30/24 11:08
ALT 20 U/L (0-35) 06/30/24 11:08
Alkaline Phosphatase 111 U/L (38-126) 06/30/24 11:08
Lipase 204 U/L (23-300) 06/30/24 11:08
Abd/Pelvis CT Scan:
Approximate 5-6 mm calculus at the right ureterovesical junction with mild right hydroureteronephrosis.
Data Reviewed
-
Lab Data: Labs Reviewed by me
Impression/Plan
-
Obstructing Right UVJ Stone
-Consult Urology
-Continue IVFs
-Continue Flomax
-Continue Dilaudid prn pain
-Strain urine
-NPO after midnight for possible OR tomorrow if stone does not pass
Migraine Headaches
Fibromyalgia
Anxiety / Depression
-Continue amitriptyline, escitalopram, and topiramate
GERD
-Continue Protonix
DVT proph: SCDs
Code Status: Full Code
[2024-06-30] MEDS: NSS 1000 IV ×2 (16:28→23:16)
--- NOTE | 2024-06-30 16:49 | W.PN.UPDATE ---
Update Note
Progress Note Update
This is an addendum to the H&P written by Meche Elizalde on 06/30/2024.� Patient seen and examined independently with PA.
53-year-old female past medical history of fibromyalgia, migraines, anxiety/depression, kidney stones, CKD, presenting with right-sided flank pain starting this morning.
Labs unremarkable.� CT abdomen pelvis shows 5 to 6 mm calculus at the right ureterovesicular junction with mild right hydroureteronephrosis.� Urinalysis unremarkable.� Strain urine, IV fluids, tamsulosin, n.p.o. postmidnight for OR tomorrow if
patient does not spontaneously passed.� Urology following.
[2024-06-30] MEDS: FLOMAX 0.4 MG PO (16:51)
--- NOTE | 2024-06-30 18:00 | CONS.URO ---
Consultation
-
Date/Time Consultation Requested: 06/30
Date/Time Consultation Performed: 06/30
Requesting Provider: ED
Performing Provider: Sowmya
Reason for Consultation: obstructing right UVJ stone, intractable pain
Medical History
History of Present Illness
53F presenting w/ intractable right flank and abdominal pain.
Presented to ED 06/27 - [facility] w/o hydronephrosis noted.
H/o nephrolithiasis followed by Dr. Ayala.
Previous left ULS in 10/2021 for obstructing left ureteral stone (Dr. Hill).
CTAP w/o IV contrast => 5-6 mm right UVJ stone w/ mild right hydroureteronephrosis, small LLP renal stone.
Denies hematuria or dysuria.
Past Medical History
Past Medical History: Psychiatric (anxiety, depression) and Other (nephrolithiasis, migraine headaches, brachial plexopathy, endometriosis)
Past Surgical History: Gynocological () and Urological (URS/LL/stone extraction/stent placement (10/2021), tonsillectomy)
Social History
Tobacco: Non-smoker
Alcohol: Occasional
Drug: None
Personal:
Living: With Family
Employment: Employed
Family History
Family History: Reviewed & Not Pertinent
Allergies/Home Medications
Allergies
Allergy/AdvReac Type Severity Reaction Status Date / Time
adhesive Allergy Rash Verified 06/27/24 14:42
chlorpheniramine polistirex Allergy ITCHING Verified 06/27/24 14:42
[From Tussionex] BUT
'RESOLVES
WITH
BENADRYL'
ciprofloxacin [From Cipro] Allergy Anaphylaxis Verified 06/27/24 14:42
ciprofloxacin HCl Allergy Anaphylaxis Verified 06/27/24 14:42
[From Cipro]
doxycycline Allergy muscle Verified 06/27/24 14:42
aches/pain
hydrocodone polistirex Allergy itching, Verified 06/27/24 14:42
[From Tussionex] rash,
difficulty
breathing
Iodinated Contrast Media Allergy Itching Verified 06/27/24 14:42
[Iodinated Contrast- Oral
and IV Dye]
levofloxacin [From Levaquin] Allergy Anaphylaxis Verified 06/27/24 14:42
morphine Allergy itchy Verified 06/27/24 14:42
propoxyphene napsylate Allergy muscle Verified 06/27/24 14:42
[From Darvocet-N 100] spasms
sulfamethoxazole Allergy muscle Verified 06/27/24 14:42
[From Bactrim] weakness
(Bactrim)
trimethoprim [From Bactrim] Allergy muscle Verified 06/27/24 14:42
weakness
(Bactrim)
Home Medications
�Medication �Instructions �Recorded �Confirmed �Type
escitalopram oxalate 10 mg tablet 20 mg PO DAILY Mental 02/25/09 06/30/24 History
Health/Anxiety
topiramate 25 mg tablet 50 mg PO BID Mental Health/Anxiety 07/21/12 06/30/24 History
docusate sodium 100 mg capsule 300 mg PO HS Constipation 11/27/20 06/30/24 History
lansoprazole 30 mg delayed 30 mg PO DAILY Gastrointestinal 11/27/20 06/30/24 History
release,disintegrating tablet issue
amitriptyline 10 mg tablet 20 mg PO HS 04/25/23 06/30/24 History
tizanidine 4 mg tablet (Zanaflex) 4 mg PO HS 04/25/23 06/30/24 History
cetirizine 10 mg tablet (Zyrtec) 10 mg PO DAILY 06/30/24 06/30/24 History
inulin 1.7 gram chewable tablet 3.4 g PO DAILY 06/30/24 06/30/24 History
(Fiber Gummies)
naproxen sodium 220 mg tablet 220 mg PO [id number] PRN mild pain 06/30/24 06/30/24 History
(Deepali)
norethindrone acetate 5 mg tablet 5 mg PO DIRECTED 06/30/24 06/30/24 History
(Doegirish)
Review of Systems
-
History Source: Patient
A 12 point Review of Systems was completed except as noted: Yes
Physical Exam
Vital Signs
Vital Signs
Temp Pulse Resp BP Pulse Ox
98.4 F 88 16 97/67 96
07/01/24 07:30 07/01/24 07:30 07/01/24 07:30 07/01/24 07:30 07/01/24 08:28
Lab / Testing Results
Laboratory Results
07/01/24 07:40
Physical Exam
General: Well Developed, Well Nourished and Pain
HEENT: Normocephalic and Anicteric
Respiratory: Non Labored Respirations
Cardiac: Regular Rhythm
Breast: Deferred by me
GI: Soft, Non Tender and Non Distended
Rectal: Deferred by Provider
Genito-urinary: No Costovertebral Tend
Musculoskeletal: No Edema
Neuro: AO x 3, No Motor Deficits and Nonfocal/Grossly Intact
Hematologic/Lymphatic: No Lymphadenopathy
Psych: Calm and Intact Judgement
Assessment / Plan
-
Obstructing right UVJ stone
Intractable pain
CT imaging/report reviewed
- Admit to Hospitalist
- Generous IVF hydration
- Regular diet, NPO@MN for possible OR 5/2 (right ureteroscopy, laser lithotripsy, stone extraction, stent placement)
- IV Ancef 2g crushed stone grader to OR
- Start tamsulosin 0.4 mg qhs to facilitate stone passage
D/w patient and spouse.
D/w Dr. Ayala.
Data Reviewed
-
Total Time Spent with Patient (in minutes): 45
CT Scan: Image personally visualized and interpreted, Report Reviewed by Me, Discussed with Physician, Discussed with Patient and Discussed with Family
Lab Data: Labs Reviewed, Discussed with Physician, Discussed with Patient and Discussed with Family
Old Records: Reviewed
[2024-06-30] MEDS: TOPAMAX 50 MG PO (19:35)
[2024-06-30] MEDS: ELAVIL 20 MG PO (22:01)
[2024-06-30] MEDS: COLACE 300 MG PO (22:01)
[2024-06-30] MEDS: ZANAFLEX 4 MG PO (22:01)
[2024-07-01] MEDS: NSS 1000 IV (05:53)
--- NOTE | 2024-07-01 07:08 | PTCARENOTE ---
Pt passed 5mm stone at 0200
[2024-07-01 07:30] VITALS: BP 97/67
--- NOTE | 2024-07-01 07:58 | W.PN.HOSP.TC ---
Today's Communication/Plan
-
-Follow urology recc
Assessment / Plan
Assessment / Plan
PLAN
#Right UVJ Stone complicated with mild right hydroureteronephrosis
-Abd/Pelvis CT: Approximate 5-6 mm calculus at the right ureterovesical junction with mild right hydroureteronephrosis. Small nonobstructing lower pole left renal calculus
-Hx OF Ureteroscopy with stone removal and stent placement 2013 as well as 10/24/2017
-No Leukocytosis, no fever, no chills
-Pt passed part of the stone this am , sent for analysis
-Urology consulted
-Continue IVFs
-DC Flomax
-Pain management with opioids as needed
-Strain urine
-NPO after midnight for possible surgery until seen by urology team
#GERD
-Continue Protonix
#Migraine Headaches
#Fibromyalgia
#Anxiety / Depression
-Continue amitriptyline, escitalopram, and topiramate
DVT proph: SCDs
Code Status: Full Code
Anticipated Discharge: 24 - 48 hours
Subjective/Interval History
-
Date of Service: July 01, 2024
The patient reports that his pain on his right flank area this morning and reports she passed a very small piece of stone in her urine.
Objective Data
-
Labs:
Laboratory Results
07/01/24
07:40
WBC Pending
Hgb Pending
Hct Pending
Plt Count Pending
Sodium Pending
Potassium Pending
Chloride Pending
Carbon Dioxide Pending
BUN Pending
Creatinine Pending
Glucose Pending
Calcium Pending
Vital Signs:
Vital Signs
Temp Pulse Resp BP Pulse Ox
98.4 F 88 16 97/67 98
07/01/24 07:30 07/01/24 07:30 07/01/24 07:30 07/01/24 07:30 07/01/24 07:30
I&O
06/30/24 07/01/24 07/02/24
06:59 06:59 06:59
Intake Total 2280 / 2280
Output Total 1250 / 1250
Balance 1030 / 1030
Review of Systems
-
History Source: Patient
EENT: Reports No Symptoms Reported
Respiratory: Reports No Symptoms
Cardiac: Reports No Symptoms
Abdomen/GI: Reports No Symptoms
Genitourinary: Reports Flank Pain (right)
Musculoskeletal: Reports No Symptoms
Skin: Reports No Symptoms
Neuro: Reports No Symptoms
Physical Exam
-
General: Well Developed, Well Nourished, Pain and Conversant
HEENT: Normocephalic and Atraumatic
Respiratory: Clear to Auscultation
Cardiac: Regular Rhythm and S1/S2
GI: Soft, Nontender and Nondistended
Genito-urinary: Costovertebral Angle Tend (on the right side )
Musculoskeletal: No Clubbing, No Cyanosis and No Edema
Skin: Warm
Neuro: Awake, Alert, Oriented and AO x 3
Psych: Calm
[2024-07-01] MEDS: TOPAMAX 50 MG PO (08:10)
[2024-07-01] MEDS: LEXAPRO 20 MG PO (08:10)
[2024-07-01] MEDS: PREVACID 30 MG PO (08:10)
[2024-07-01] MEDS: ZYRTEC 10 MG PO (08:10)
--- NOTE | 2024-07-01 08:47 | W.PN.UPDATE ---
Update Note
Progress Note Update
I saw and evaluated the patient. I reviewed the resident�s note and agree with findings and plan as documented in the resident�s note.
Pt passed ureterolithiasis and abd pain has improved significantly.
Gen: NAD, AAOx3.
Eyes: EOMI, PERRLA, no scleral icterus.
Neck: supple.
CV: RRR, +S1/S2, no m/r/g.
Resp: CTAB, no rales, wheezes, or rhonchi.
Abd: +BS, soft, NT, ND
Skin: No rashes.
Neuro: CN 2-12 intact, non-focal.
Psych: Normal mood and affect.
CT A/P: Approximate 5-6 mm calculus at the right ureterovesical junction with mild right hydroureteronephrosis. Small nonobstructing lower pole left renal calculus. Cholelithiasis. Likely small hiatal hernia.
Obstructing Right UVJ Stone:
-pt passed part of the stone this AM, sent for analysis
-cont IVFs/pain control for now
-no need to continue Flomax as per discussion with Dr. Deng
-advance diet
Other problems:
Migraine Headaches
Fibromyalgia
Anxiety / Depression
-Continue amitriptyline, escitalopram, and topiramate
GERD
-Continue Protonix
FULL/SCDs
d/c later today as per discussion with Dr. Deng.
Total time spent on d/c = 31 min. This included today's physical exam, progress note, review of laboratory and diagnostic data, preparation of discharge documents and prescriptions, and discussions about the pt's hospital course and discharge plan
with the patient and other medical equipment technician involved in the patient's care.
[2024-07-01 09:21] LABS: Hematocrit 32.5 % (37.0-47.0); Hemoglobin 10.5 g/dL (12.0-16.0); Mean Corp Hgb Conc. 32.3 g/dL (33.0-37.0); Mean Corpuscular Hgb 29.4 pg (27.0-31.0); Mean Platelet Volume 11.1 fL (7.4-10.4); Platelet Count 186 10^3/uL (130-400); Red Blood Cell Count 3.57 10^6/uL (4.20-5.40); Red Cell Dist. Width 12.5 % (11.5-14.5); White Blood Cell Count 6.3 10^3/uL (4.8-10.8)
--- NOTE | 2024-07-01 10:33 | W.PN.UPDATE ---
Update Note
Progress Note Update
pt seen at bedside
was posted for OR today
passed 5mmm stone this morning
very mild residual dysuria
feels well
plan for discharge with outpt f/u
[2024-07-01 10:35] LABS: Blood Urea Nitrogen 16 mg/dl (7-17); Calcium 8.2 mg/dl (8.4-10.2); Carbon Dioxide 22 mmol/L (22-30); Chloride 114 mmol/L (98-107); Estimated Creatinine Clearance 52 ml/min; Glucose 85 mg/dl (70-99); Potassium 4.8 mmol/L (3.5-5.1); Sodium 143 mmol/L (135-145); eGFR > 60.00
--- NOTE | 2024-07-01 11:06 | CM ---
Reviewed the chart notes and spoke with the patient and her significant other at the bedside. Patient resides with significant other in a three story home with no steps to enter. The patient reports no DME/VN/SNF in the past. Patient confirmed
her [facility] of choice [facility]. The patient will drive self home today. CM continues to be available to patient/family and is monitoring medical plan for needs at discharge.
Plan: Discharge to home today.
--- NOTE | 2024-07-01 12:00 | W.DCSUMMARY ---
Discharge Summary
Discharge Data
Date of Admission: 06/30/24
Date of Discharge: 07/01/24
-
Pending Results: No
Hospital Course
Disposition : Home
Primary care physician : Josiah Whittaker DO
Principal Discharge diagnosis :Right UVJ Stone complicated with mild right hydroureteronephrosis
Chronic Discharge diagnosis : Hx of kidney stone, CKD, GERD, Migraine Headache, Fibromyalgia, Anxiety / Depression
Hospital Course :
Right UVJ Stone complicated with mild right hydroureteronephrosis: The patient presented to ER on 06/30/24 complaining from worsening right flank pain for last 2 days. Patient has a known hx and procedure for kidney stone in the past. She was
obtained an abdominal/pelvis CT which noted Approximate 5-6 mm calculus at the right ureterovesical junction with mild right hydroureteronephrosis and small nonobstructing lower pole left renal calculus.Her lab results was remarkable for elevated
calcium to 10.7 and creatinine to 1.2. The patient was admitted for further management and was given pain medication and IV fluids. Her calcium and creatinine levels with Iv fluid treatment. Patient reported passing a small stone in her
urine this morning. She was seen by Urology and medically was cleared for outpatient follow up.
#Other chronic medical problems: These include hx of kidney stone, CKD, GERD, Migraine Headache, Fibromyalgia, Anxiety / Depression. These chronic diseases are treated as able to.
Important imaging findings :
Abdominal/Pelvis CT 06/30/2024
FINDINGS:
CHEST:The included lung bases contain some minor dependent subsegmental atelectasis. There is a likely small hiatal hernia.
ABDOMEN:Evaluation of the organs of the abdomen are limited without intravenous contrast, without gross focal intrinsic abnormality of the liver, spleen, pancreas or adrenal glands. Gallstones are seen within the gallbladder. There is no biliary
tract dilatation. The abdominal aorta is normal in caliber. There is no retroperitoneal lymphadenopathy. Evaluation of the intestinal tract is limited without intravenous or oral contrast, without intestinal obstruction or free air. There are no
right lower quadrant inflammatory changes.
PELVIS:The unopacified urinary bladder demonstrates no focal intrinsic abnormality. There is an approximate 5-6 mm calculus at the right ureterovesical junction, image 111 series 201 with mild distal right ureteral dilatation. No true pelvis free
fluid or significant lymphadenopathy is identified. The uterus is again noted to be retroverted.
SKELETON:There is no focal suspicious osseous lesion.
IMPRESSION:
Approximate 5-6 mm calculus at the right ureterovesical junction with mild right hydroureteronephrosis.
Small nonobstructing lower pole left renal calculus.
Cholelithiasis.
Likely small hiatal hernia.
Discharge Plan
-
Patient Disposition: Home (Routine Discharge)
Discharge Diagnosis/Procedures: R ureterolithiasis
Condition: Good
Diet: Regular
Activity: No restrictions
Driving Restrictions: As prior to admission
Bathing Restrictions: None
Referrals:
Josiah Whittaker DO [Family Provider] - in less than 1 week
Glynn Ayala Jr., MD [Active] - (Please call [facility] to schedule a follow up visit with Dr. Ayala in 1 month. )
Prescriptions:
Continued
escitalopram oxalate 10 MG tablet
20 mg PO DAILY
topiramate 25 MG tablet
50 mg PO BID
docusate sodium 100 MG capsule
300 mg PO HS
lansoprazole 30 MG tablet,disintegrat, delay rel
30 mg PO DAILY
tizanidine [Zanaflex] 4 mg Tablet
4 mg PO HS
amitriptyline 10 mg Tablet
20 mg PO HS
cetirizine [Zyrtec] 10 mg Tablet
10 mg PO DAILY
naproxen sodium [Aleve] 220 mg Tablet
220 mg PO [id number] PRN (Reason: mild pain)
Fiber Gummies 1.7 gram Tablet,Chewable
3.4 g PO DAILY
norethindrone acetate [Gallifrey] 5 mg Tablet
5 mg PO DIRECTED
Rx Instructions:
take 10 days after your period next dose due 07/01/24
Discharge Orders:
Discharge Patient (As Directed); Ordered 07/01/24
Ordered By: Fransisco De La Garza
Discharge Date and Time
Discharge Date/Time: 07/01/24 11:15
Print Language: ICELANDIC
== END 2024-07-01 11:15 | disposition home or self-care (01) | DRG 690 ==
LOC: 2 SOUTH 16:31
PROVIDERS: Emergency Medicine; Physician Assistant Medical; Student in an Organized Health Care Education/Training Program; ADMITTING PHYSICIAN Hospitalist; ATTENDING PHYSICIAN Internal Medicine; CONSULT PHYSICIAN Surgery; EMERGENCY PHYSICIAN Emergency Medicine; FAMILY PHYSICIAN Family Medicine
DX: N13.6 Pyonephrosis (principal); N20.2 Calculus of kidney with calculus of ureter; K80.20 Calculus of gallbladder without cholecystitis without obstruction; K21.9 Gastro-esophageal reflux disease without esophagitis; F41.9 Anxiety disorder, unspecified; F32.A Depression, unspecified; M79.7 Fibromyalgia; K44.9 Diaphragmatic hernia without obstruction or gangrene; Z87.891 Personal history of nicotine dependence
CPT/HCPCS: 74176; 80048; 80053; 81003; 81015; 82365; 83690; 84703; 85025; 85027; 93005; 96374; 96375; 96376; 99285

== ENCOUNTER 2024-07-25 13:55 | Emergency (ER) | payer MEDICARE, OTHER, SELFPAY ==
[2024-07-25 14:09] VITALS: BP 115/81
--- NOTE | 2024-07-25 14:34 | EDRN ---
Dr. Fierro in to see pt at this time.
--- NOTE | 2024-07-25 14:42 | ED.GENMED ---
History of Present Illness
General
Chief Complaint: Headache
Source: patient
Exam Limitations: none
Time Seen by Provider: 07/25/24 14:29
History of Present Illness
History of Present Illness:
See MDM
Past History
Past History
ED Past Medical History: Fibromyalgia, GERD and Other (kidney stones, migraines, hemiplegic migraines, irritable bowel syndrome, endometriosis, Pericarditis, Pyelonephritis, Sleep apnea)
ED Past Surgical History: (�2), Gynecological (Laparoscopy �3), Tonsilectomy and Urological (Ureteroscopy with stone removal and stent placement 2013 as well as 10/24/2017.)
Social History
Tobacco: Former smoker
Alcohol: Occasional
Drug: None
Personal:
Living: with family
Employment: Disabled
Family History
Family History: Other (non contributory)
Phy Exam
Physical Exam
Physical Exam:
See MDM
Course
Orders/Labs/Results
Orders:
Orders
07/25/24 14:40
0.9% Sodium Chloride 1000 ml [Nss] 1,000 ml IV BOLUS
Diphenhydramine [Benadryl] 25 mg IV NOW STA
Ketorolac [Toradol] 30 mg IV NOW STA
Metoclopramide [Reglan] 10 mg IV NOW STA
07/25/24 14:51
Complete Blood Count/With Diff Urgent
Comprehensive Metabolic Panel Urgent
07/25/24 15:12
Lorazepam [Ativan] 1 mg IV NOW STA
07/25/24 15:13
Lorazepam [Ativan] 2 mg .ROUTE .STK-MED ONE
07/25/24 15:55
Dexamethasone Sod Phosphate [Decadron] 10 mg IV NOW STA
Abnormal Lab Results
07/25/24
14:51
MCHC 32.9 L g/dL
(33.0-37.0)
Chloride 112 H mmol/L
(98-107)
Creatinine 1.1 H mg/dL
(0.6-1.0)
Glucose 115 H mg/dl
(70-99)
07/25/24 14:51
07/25/24 14:51
Vital Signs
Initial and Last Documented VS:
Initial Vital Signs
Temp Pulse Resp BP Pulse Ox
97.8 F 107 16 115/81 98
07/25/24 14:09 07/25/24 14:09 07/25/24 14:09 07/25/24 14:09 07/25/24 14:09
Last Documented Vital Signs
Temp Pulse Resp BP Pulse Ox
97.8 F 95 20 115/81 97
07/25/24 14:09 07/25/24 15:17 07/25/24 15:17 07/25/24 14:09 07/25/24 16:45
MDM/Problems Addressed
Differential Diagnosis Includes:
HPI and MDM Narrative:
53-year-old female presenting with generalized headache. She has a history of migraines but states has never lasted this long. She has been dealing with symptoms for about 7 days. She has been taking her headache medication with minimal to no
relief.
On exam, she is mildly uncomfortable but nontoxic-appearing. No tenderness with temporal artery palpation. EOMI. Pupils equal reactive.
Because she has had prior imaging of her head, we discussed low utility of CT
Will give IV fluids, IV Toradol, IV Reglan and IV Benadryl and continue to reassess
Physical exam
General: Well appearing and non-toxic
HEENT: protecting airway. Pupils equal reactive. EOMI. No temporal artery tenderness
Neck: appears supple
CV: No evidence of cyanosis
Resp: No accessory muscle use
Abd: Non-distended
Extremities: No deformities
Neuro: alert
Psych: Normal affect
Skin: Intact
Problems Addressed including Acute and Chronic Conditions affecting care:
1. Headache
Acuity: acute
Prognosis: stable
Details: Will give IV Toradol, IV Reglan and IV Benadryl
Updates
On reassessment, patient feeling much better. Patient feels comfortable going home
Differential Diagnosis (but not limited to): Migraine, tension headache
Testing considered: CT head
Drug therapy (if applicable): OTC meds, please see d/c instruction regarding Rx drugs
Amount and/or Complexity of Data Reviewed
Clinical info obtained from: Patient
External data reviewed: N/A
Labs I independently reviewed (but not limited to): Mild hyperglycemia
Radiology: N/A
Pulse Ox: not hypoxic
EKG independently reviewed: N/A
[place]: N/A
Critical Care: N/A
Risk of Complication:
Social Determinants of health: Good social support
Discussed with other providers: N/A
Escalation of Care includes Admit/Obs: After being observed in the Emergency Department, pt stable for discharge.
Occasional wrong word or 'sound a like' substitutions may have occurred due to the inherent limitations of voice recognition software. Read the chart carefully and recognize, using context, where substitutions have occurred.
*Critical Care Note
Total Time (30-74mins, 75-104mins- exclusive of procedures): Not Applicable
ED Attending Note
-
Portions of this chart may have been created with voice recognition software.� Occasional wrong word or��sound alike� substitutions may have occurred due to the inherent limitations of voice recognition software.
Discharge Plan
Departure
Patient Disposition: Home (Routine Discharge)
Date of Disposition: 07/25/24
Time of Disposition: 17:03
Patient with high blood pressure during this ER visit?: No
Discharge Problem:
Migraine
Instructions: Migraines (DC)
Prescriptions:
No Action
escitalopram oxalate 10 MG tablet
20 mg PO DAILY
topiramate 25 MG tablet
50 mg PO BID
docusate sodium 100 MG capsule
300 mg PO HS
lansoprazole 30 MG tablet,disintegrat, delay rel
30 mg PO DAILY
tizanidine [Zanaflex] 4 mg Tablet
4 mg PO HS
amitriptyline 10 mg Tablet
20 mg PO HS
cetirizine [Zyrtec] 10 mg Tablet
10 mg PO DAILY
naproxen sodium [Aleve] 220 mg Tablet
220 mg PO [id number] PRN (Reason: mild pain)
Fiber Gummies 1.7 gram Tablet,Chewable
3.4 g PO DAILY
norethindrone acetate [Gallifrey] 5 mg Tablet
5 mg PO DIRECTED
Rx Instructions:
take 10 days after your period next dose due 07/01/24
Referrals:
Josiah Whittaker DO [Family Provider] -
Activity Restrictions/Additional Instructions:
Please return for any worsening symptoms.
You may return at any time if you have further concerns.
Please follow up with your doctor at the first available appointment, preferably this week.
Thank you for choosing [facility].
Interventions
Interventions:
*Risk Screen - Suicide Last Done: 07/25/24 14:56
*General Assessment Last Done: 07/25/24 14:56
*Neglect/Abuse Screening Last Done: 07/25/24 14:56
*ED- Fall Risk Assessment Last Done: 07/25/24 14:56
*ED COVID-19 Vaccine History Last Done: 07/25/24 14:56
ED- Neurological Assessment Last Done: 07/25/24 16:59
Discharge Date and Time
Print Language: TURKMEN
[2024-07-25] MEDS: TORADOL 30 MG IV (14:56)
[2024-07-25] MEDS: REGLAN 10 MG IV (14:56)
[2024-07-25] MEDS: BENADRYL 25 MG IV (14:56)
[2024-07-25] MEDS: NSS 1000 IV (14:57)
[2024-07-25 15:01] LABS: % Basophils 0.9 % (0-2); % Eosinophils 3.1 % (0-6); % Immature Granulocytes 0.2 % (0-0.5); % Lymphocytes 29.7 % (20.5-51.1); % Monocytes 5.6 % (1.7-9.3); % Neutrophils 60.5 % (42.2-75.2); Absolute Basophils 0.1 10^3/uL (0-0.2); Absolute Eosinophils 0.2 10^3/uL (0-0.7); Absolute Lymphocytes 1.7 10^3/uL (1.2-3.4); Absolute Monocytes 0.3 10^3/uL (0.1-0.6); Absolute Neutrophils 3.5 10^3/uL (1.4-6.5); Hematocrit 38.9 % (37.0-47.0); Hemoglobin 12.8 g/dL (12.0-16.0); Mean Corp Hgb Conc. 32.9 g/dL (33.0-37.0); Mean Corpuscular Hgb 29.2 pg (27.0-31.0); Mean Corpuscular Volume 88.8 fL (81.0-99.0); Mean Platelet Volume 10.1 fL (7.4-10.4); Nucleated Red Blood Cells % 0 %; Platelet Count 248 10^3/uL (130-400); Red Blood Cell Count 4.38 10^6/uL (4.20-5.40); Red Cell Dist. Width 12.5 % (11.5-14.5); White Blood Cell Count 5.7 10^3/uL (4.8-10.8)
[2024-07-25 15:11] VITALS: BMI 24.2
[2024-07-25 15:13] LABS: ALT (SGPT) 19 U/L (0-35); AST (SGOT) 19 U/L (14-36); Albumin 4.3 g/dl (3.5-5.0); Alkaline Phosphatase 102 U/L (38-126); Blood Urea Nitrogen 15 mg/dl (7-17); Calcium 9.6 mg/dl (8.4-10.2); Carbon Dioxide 23 mmol/L (22-30); Chloride 112 mmol/L (98-107); Estimated Creatinine Clearance 52 ml/min; Glucose 115 mg/dl (70-99); Sodium 142 mmol/L (135-145); Total Bilirubin 0.3 mg/dl (0.2-1.3); Total Protein 7.3 g/dl (6.3-8.2); eGFR > 60.00
[2024-07-25] MEDS: ATIVAN 1 MG IV (15:14)
[2024-07-25] MEDS: DECADRON 10 MG IV (16:36)
== END 2024-07-25 17:28 | disposition home or self-care (01) ==
LOC: EMR 13:55
PROVIDERS: EMERGENCY PHYSICIAN Student in an Organized Health Care Education/Training Program; FAMILY PHYSICIAN Family Medicine
DX: G43.909 Migraine, unspecified, not intractable, without status migrainosus (principal); M79.7 Fibromyalgia; K21.9 Gastro-esophageal reflux disease without esophagitis; K58.9 Irritable bowel syndrome, unspecified; G47.30 Sleep apnea, unspecified; Z87.442 Personal history of urinary calculi; Z87.891 Personal history of nicotine dependence; Z88.1 Allergy status to other antibiotic agents; Z91.041 Radiographic dye allergy status; Z88.5 Allergy status to narcotic agent; Z88.2 Allergy status to sulfonamides; Z88.8 Allergy status to other drugs, medicaments and biological substances; Z91.048 Other nonmedicinal substance allergy status
CPT/HCPCS: 99284; 96374; 96375 ×4; 96361; 80053; 85025

== ENCOUNTER 2024-07-28 21:23 | Emergency (ER) | payer MEDICARE, OTHER, SELFPAY ==
[2024-07-28 21:27] VITALS: BP 123/86
[2024-07-29] VITALS (9 sets, daily range): BP systolic 101–134; BP diastolic 70–88; BMI 23.9
--- NOTE | 2024-07-29 01:20 | EDRN ---
Pt states that she was seen here Thursday and given a headache 'cocktail', which seemed to help. Pt then called neurologist and placed on steroids. Pt has taken 2 days of steroids. Pain has returned and is just as bad as prior. Pt has taken her
migraine medication with no relief. Pt tried chiropractor with no full relief. Pt here because she doesn't know what to do. Pt c/o light and sound sensitivity. Pt speaking freely.
--- NOTE | 2024-07-29 02:01 | ED.GENMED ---
History of Present Illness
<Taurus Bird DO - Last Filed: 07/29/24 06:33>
General
Chief Complaint: Headache
Source: patient
Time Seen by Provider: 07/29/24 01:26
Past History
<Taurus Bird DO - Last Filed: 07/29/24 06:33>
Past History
ED Past Medical History: Fibromyalgia, GERD and Other (kidney stones, migraines, hemiplegic migraines, irritable bowel syndrome, endometriosis, Pericarditis, Pyelonephritis, Sleep apnea)
ED Past Surgical History: (�2), Gynecological (Laparoscopy �3), Tonsilectomy and Urological (Ureteroscopy with stone removal and stent placement 2013 as well as 10/24/2017.)
Social History
Tobacco: Former smoker
Alcohol: Occasional
Drug: None
Personal:
Living: with family
Employment: Disabled
Family History
Family History: Other (non contributory)
Course
<DO Obey Mcbride Last Filed: 07/29/24 06:33>
Orders/Labs/Results
Orders:
Orders
07/29/24 01:56
0.9% Sodium Chloride 1000 ml [Nss] 1,000 ml IV BOLUS
Diphenhydramine [Benadryl] 25 mg IV NOW STA
Ketorolac [Toradol] 15 mg IV NOW STA
Prochlorperazine [Compazine] 10 mg IV NOW STA
07/29/24 01:58
CT Head & Neck Angio W/wo IV Urgent
Comment:
Reason For Exam: severe headache
07/29/24 02:22
Complete Blood Count/With Diff Urgent
Comprehensive Metabolic Panel Urgent
Erythrocyte Sed Rate Urgent
PTT Urgent
Prothrombin Time Urgent
07/29/24 05:31
Phenobarbital Sodium [Phenobarbital] 97.5 mg IV NOW STA
07/29/24 06:00
Valproate Sodium [Depacon] 1,000 mg 0.9% Sodium Chloride 50 ml [Nss] 50 ml IV NOW
07/29/24 10:42
Dihydroergotamine Mesylate [Dhe-45] 1 mg IV NOW STA
07/29/24 10:53
Ondansetron Injectable [Zofran] 4 mg IV NOW STA
07/29/24 11:05
Diphenhydramine [Benadryl] 25 mg IV ONCE ONE
Abnormal Lab Results
07/29/24
02:22
WBC 11.4 H 10^3/uL
(4.8-10.8)
RBC 4.13 L 10^6/uL
(4.20-5.40)
Hct 36.7 L %
(37.0-47.0)
MCHC 32.7 L g/dL
(33.0-37.0)
Absolute Neuts (auto) 8.5 H 10^3/uL
(1.4-6.5)
Absolute Monos (auto) 0.7 H 10^3/uL
(0.1-0.6)
Lymphocytes % 19.2 L %
(20.5-51.1)
ESR 28 H mm/hour
(0-20)
Chloride 111 H mmol/L
(98-107)
BUN 20 H mg/dl
(7-17)
Total Bilirubin 0.1 L mg/dl
(0.2-1.3)
07/29/24 02:22
07/29/24 02:22
Vital Signs
Initial and Last Documented VS:
Initial Vital Signs
Temp Pulse Resp BP Pulse Ox
99.1 F 100 20 123/86 98
07/28/24 21:27 07/28/24 21:27 07/28/24 21:27 07/28/24 21:27 07/28/24 21:27
Last Documented Vital Signs
Temp Pulse Resp BP Pulse Ox
99.1 F 88 16 107/72 100
07/28/24 21:27 07/29/24 06:12 07/29/24 06:12 07/29/24 11:00 07/29/24 11:15
<Jesus Alberto Jensen MD - Last Filed: 07/29/24 12:15>
Orders/Labs/Results
Orders:
Orders
07/29/24 01:56
0.9% Sodium Chloride 1000 ml [Nss] 1,000 ml IV BOLUS
Diphenhydramine [Benadryl] 25 mg IV NOW STA
Ketorolac [Toradol] 15 mg IV NOW STA
Prochlorperazine [Compazine] 10 mg IV NOW STA
07/29/24 01:58
CT Head & Neck Angio W/wo IV Urgent
Comment:
Reason For Exam: severe headache
07/29/24 02:22
Complete Blood Count/With Diff Urgent
Comprehensive Metabolic Panel Urgent
Erythrocyte Sed Rate Urgent
PTT Urgent
Prothrombin Time Urgent
07/29/24 05:31
Phenobarbital Sodium [Phenobarbital] 97.5 mg IV NOW STA
07/29/24 06:00
Valproate Sodium [Depacon] 1,000 mg 0.9% Sodium Chloride 50 ml [Nss] 50 ml IV NOW
07/29/24 10:42
Dihydroergotamine Mesylate [Dhe-45] 1 mg IV NOW STA
07/29/24 10:53
Ondansetron Injectable [Zofran] 4 mg IV NOW STA
07/29/24 11:05
Diphenhydramine [Benadryl] 25 mg IV ONCE ONE
Abnormal Lab Results
07/29/24
02:22
WBC 11.4 H 10^3/uL
(4.8-10.8)
RBC 4.13 L 10^6/uL
(4.20-5.40)
Hct 36.7 L %
(37.0-47.0)
MCHC 32.7 L g/dL
(33.0-37.0)
Absolute Neuts (auto) 8.5 H 10^3/uL
(1.4-6.5)
Absolute Monos (auto) 0.7 H 10^3/uL
(0.1-0.6)
Lymphocytes % 19.2 L %
(20.5-51.1)
ESR 28 H mm/hour
(0-20)
Chloride 111 H mmol/L
(98-107)
BUN 20 H mg/dl
(7-17)
Total Bilirubin 0.1 L mg/dl
(0.2-1.3)
07/29/24 02:22
07/29/24 02:22
Vital Signs
Initial and Last Documented VS:
Initial Vital Signs
Temp Pulse Resp BP Pulse Ox
99.1 F 100 20 123/86 98
07/28/24 21:27 07/28/24 21:27 07/28/24 21:27 07/28/24 21:27 07/28/24 21:27
Last Documented Vital Signs
Temp Pulse Resp BP Pulse Ox
99.1 F 88 16 107/72 100
07/28/24 21:27 07/29/24 06:12 07/29/24 06:12 07/29/24 11:00 07/29/24 11:15
Avinashlt;Taurus Bird DO - Last Filed: 07/29/24 06:33>
MDM/Problems Addressed
Differential Diagnosis Includes:
Migraine headache, ocular migraine, congestion, atypical migraine
MDM/Problems Addressed:
53-year-old female presents with migraine headache that has been persistent for 10 days. Was seen in the emergency department as well as by outpatient neurology. States that headache waxes and wanes in intensity but is typically present.
<Taurus Bird DO - Last Filed: 07/29/24 06:33>
*Critical Care Note
Total Time (30-74mins, 75-104mins- exclusive of procedures): Not Applicable
<Taurus Bird DO - Last Filed: 07/29/24 06:33>
Update Note
Update Note:
NAME: JAYLIN WILD
DATE OF EXAM: 07/29/2024
Patient No: [id number]
Physician: ROBLES^KENNETH
Date of : 1970
Past Medical History (entered by Technologist):
Reason For Exam (entered by Technologist):
Other Notes (entered by Technologist): pt with a h/o migraine presents with migraine, was seen in er on thursday for same
no priors
Additional Information (per Vision Radiologist): No stroke symptoms per physician, headache refractory to medications
CT ANGIOGRAM OF THE HEAD AND NECK
IMPRESSION:
NONCONTRAST HEAD CT
IMPRESSION
No evidence of acute intracranial abnormality. No hemorrhage or mass. Ventricles, sulci, Madrid-White matter, and bones are unremarkable. Sinuses are unremarkable.
No CT criteria for an acute ischemic event, however CT has a diminished sensitivity for hyperacute stroke.
[place] OF TURNER:
Mild motion and streak artifact probably accounts for mild heterogeneity within the peripheral branches, no stroke symptoms per physician
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
No evidence of aneurysm, large vessel occlusion/filling defect, or significant stenosis.
Venous sinuses are patent. No evidence for acute infarct or other abnormal enhancement. However if indicated MRI or CT perfusion has a higher sensitivity for acute infarct.
CT ANGIOGRAM OF THE NECK
Cartoids and vertebrals demonstrate no evidence of dissection or hemodynamically significant stenosis. No aneurysm.
Patient states that her headache is slightly better. Spoke with Dr. Otero, neurology who recommended valproic acid and phenobarbital in addition to the headache cocktail.
<Jesus Alberto Jensen MD - Last Filed: 07/29/24 12:15>
Update Note
Update Note:
NAME: JAYLIN WILD
DATE OF EXAM: 07/29/2024
Patient No: [id number]
Physician: ROBLES^KENNETH
Date of : 1970
Past Medical History (entered by Technologist):
Reason For Exam (entered by Technologist):
Other Notes (entered by Technologist): pt with a h/o migraine presents with migraine, was seen in er on thursday for same
no priors
Additional Information (per Vision Radiologist): No stroke symptoms per physician, headache refractory to medications
CT ANGIOGRAM OF THE HEAD AND NECK
IMPRESSION:
NONCONTRAST HEAD CT
IMPRESSION
No evidence of acute intracranial abnormality. No hemorrhage or mass. Ventricles, sulci, Madrid-White matter, and bones are unremarkable. Sinuses are unremarkable.
No CT criteria for an acute ischemic event, however CT has a diminished sensitivity for hyperacute stroke.
[place] OF TURNER:
Mild motion and streak artifact probably accounts for mild heterogeneity within the peripheral branches, no stroke symptoms per physician
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
No evidence of aneurysm, large vessel occlusion/filling defect, or significant stenosis.
Venous sinuses are patent. No evidence for acute infarct or other abnormal enhancement. However if indicated MRI or CT perfusion has a higher sensitivity for acute infarct.
CT ANGIOGRAM OF THE NECK
Cartoids and vertebrals demonstrate no evidence of dissection or hemodynamically significant stenosis. No aneurysm.
Patient states that her headache is slightly better. Spoke with Dr. Otero, neurology who recommended valproic acid and phenobarbital in addition to the headache cocktail.
1215.... Patient seen by neurology. Stable for discharge to follow-up. Patient is comfortable with this approach.
ED Attending Note
<Taurus Bird DO - Last Filed: 07/29/24 06:33>
-
Portions of this chart may have been created with voice recognition software.� Occasional wrong word or��sound alike� substitutions may have occurred due to the inherent limitations of voice recognition software.
Discharge Plan
Departure
Patient Disposition: Home (Routine Discharge)
Date of Disposition: 07/29/24
Time of Disposition: 12:15
Patient with high blood pressure during this ER visit?: No
Condition: Fair
Discharge Problem:
Migraine headache
Instructions: Migraines (DC), Headache, Adult (DC)
Prescriptions:
No Action
escitalopram oxalate 10 MG tablet
20 mg PO DAILY
topiramate 25 MG tablet
50 mg PO BID
docusate sodium 100 MG capsule
300 mg PO HS
lansoprazole 30 MG tablet,disintegrat, delay rel
30 mg PO DAILY
tizanidine [Zanaflex] 4 mg Tablet
4 mg PO HS
amitriptyline 10 mg Tablet
20 mg PO HS
cetirizine [Zyrtec] 10 mg Tablet
10 mg PO DAILY
naproxen sodium [Aleve] 220 mg Tablet
220 mg PO [id number] PRN (Reason: mild pain)
Fiber Gummies 1.7 gram Tablet,Chewable
3.4 g PO DAILY
norethindrone acetate [Gallifrey] 5 mg Tablet
5 mg PO DIRECTED
Rx Instructions:
take 10 days after your period next dose due 07/01/24
Referrals:
Cleveland Otero MD [Active, Neurology]
Josiah Whittaker DO [Family Provider, Family Practice]
Activity Restrictions/Additional Instructions:
Follow-up closely with your neurologist
Interventions
Interventions:
*Risk Screen - Suicide Last Done: 07/28/24 21:27
*General Assessment Last Done: 07/28/24 21:27
*Neglect/Abuse Screening Last Done: 07/28/24 21:27
*ED- Fall Risk Assessment Last Done: 07/29/24 01:18
*ED COVID-19 Vaccine History Last Done: 07/29/24 01:18
ED- Neurological Assessment Last Done: 07/29/24 01:18
Discharge Date and Time
Print Language: KINYARWANDA
[2024-07-29] MEDS: NSS 1000 IV (02:25)
[2024-07-29] MEDS: TORADOL 15 MG IV (02:26)
[2024-07-29] MEDS: BENADRYL 25 MG IV ×2 (02:29→11:19)
[2024-07-29] MEDS: COMPAZINE 10 MG IV (02:32)
[2024-07-29 02:34] LABS: % Basophils 0.1 % (0-2); % Eosinophils 0.4 % (0-6); % Immature Granulocytes 0.4 % (0-0.5); % Lymphocytes 19.2 % (20.5-51.1); % Monocytes 5.9 % (1.7-9.3); Absolute Lymphocytes 2.2 10^3/uL (1.2-3.4); Absolute Monocytes 0.7 10^3/uL (0.1-0.6); Absolute Neutrophils 8.5 10^3/uL (1.4-6.5); Hematocrit 36.7 % (37.0-47.0); Mean Corp Hgb Conc. 32.7 g/dL (33.0-37.0); Mean Corpuscular Hgb 29.1 pg (27.0-31.0); Mean Corpuscular Volume 88.9 fL (81.0-99.0); Mean Platelet Volume 10.3 fL (7.4-10.4); Nucleated Red Blood Cells % 0 %; Platelet Count 270 10^3/uL (130-400); Red Blood Cell Count 4.13 10^6/uL (4.20-5.40); Red Cell Dist. Width 12.4 % (11.5-14.5); White Blood Cell Count 11.4 10^3/uL (4.8-10.8)
[2024-07-29 02:47] LABS: PT 13.7 Sec (11.4-14.6)
[2024-07-29 02:58] LABS: ALT (SGPT) 22 U/L (0-35); AST (SGOT) 19 U/L (14-36); Albumin 4.2 g/dl (3.5-5.0); Alkaline Phosphatase 97 U/L (38-126); Blood Urea Nitrogen 20 mg/dl (7-17); Calcium 9.3 mg/dl (8.4-10.2); Carbon Dioxide 23 mmol/L (22-30); Chloride 111 mmol/L (98-107); Estimated Creatinine Clearance 57 ml/min; Glucose 98 mg/dl (70-99); Potassium 4.1 mmol/L (3.5-5.1); Sodium 142 mmol/L (135-145); Total Bilirubin 0.1 mg/dl (0.2-1.3); Total Protein 7.1 g/dl (6.3-8.2); eGFR > 60.00
[2024-07-29 03:14] LABS: Erythrocyte Sed Rate 28 mm/hour (0-20)
[2024-07-29] MEDS: PHENOBARBITAL 97.5 MG IV (06:05)
[2024-07-29] MEDS: DEPACON 60 MG IV (06:37)
--- NOTE | 2024-07-29 10:36 | CON.NEURO4 ---
Addendum entered and electronically signed by Cleveland Otero MD 07/29/24 16:40:
Studies reviewed.
I have personally examined the patient. I reviewed and agree with the MINE CAPTAIN's Note.
My addenda:
Awake, alert, interactive. No acute distress.
Speech intact.
Follows 2-step requests w/o difficulty. No tremor.
Extra-ocular movements grossly intact.
Facial movements full and symmetric. Hearing intact to normal conversational volume.
Normal UE movements bilaterally.
Neck: full ROM.
Chest: no dyspnea
Heart: no JVD
Ext: (-) Clubbing, (-) Cyanosis, (-) Edema
IMPRESSIONS/RECOMMENDATIONS:
Abrupt onset of status migrainosus in patient with prior history of hemiplegic migraine with aura
Would discontinue topiramate as outpatient due to recurrent nephrolithiasis
Advance amitriptyline from 20 mg to 30 mg
Patient will require CGRP medication as both preventative and rescue therapy as outpatient
Provide dihydroergotamine 1 mg now
Repeat diphenhydramine 25 mg IV now with single dose of dopamine antagonist in the form of ondansetron
Consideration for botulinum toxin injections routinely, as an outpatient
D/W patient
All questions answered.
Will continue to follow as needed. Patient will follow-up with her usual outpatient neurologist.
Original Note:
Consultation - Neurology 4
-
CONSULTING PHYSICIAN: Cleveland Otero MD
REFERRING PHYSICIAN: ER/Dr. Jensen
DICTATED BY: EVERETTE Du
DATE/TIME OF REQUEST: 07/29/24
DATE/TIME OF CONSULTATION: 07/29/24
Reason for Consultation: Headache
History of Present Illness:
This is a 53-year-old female who has presented to the hospital with report of intractable migraine. Patient is followed by Neurology Dr. Hernandez at [place] as an outpatient for headaches. She was previously seen by our inpatient Neurology service
in April 2023 for headache associated with left-sided paresthesias and weakness.
From previous evaluation by Neurology Dr. Perez on 04/25/2023:
'52-year-old female with past medical history of fibromyalgia, concussion and diagnosis of hemiplegic migraine about 20 years ago associated with left-sided numbness. She currently follows with a neurologist at [place], Dr. Olegario hernandez. She
states that Thursday night she started having a feeling like 'Novocain had been injected in her foot was on fire in the front of her left lower extremity. This gradually traveled up her leg and then later into her left arm. She laid down and it went
away. Thursday morning she was okay. Thursday evening it started again in the same place to the bottom of the left leg. It then spread again into her whole arm and leg on the left. The leg is worse than the arm. Got worse when she tried to
stand up on the leg. It gradually improved at night. She describes this as 'feeling like a chunk of her leg is missing.' She has had waxing and waning numbness in the left lower extremity associated with a wobbly sensation. She states that with
her current event she has had headaches on and off for about 1 week. She woke up with a headache yesterday. She is taken Advil, Excedrin and Benadryl for it.
Currently she has numbness in her left arm and leg. She says that when the SCDs compress her legs her pain worsens. Overall her left lower extremity feels less weak than it did prior. She still has some left facial numbness as well.
She says that about 20 years ago she had left-sided numbness starting in her left toes that gradually spread up her left side and involves her face. She was admitted and found to have no stroke as cause for her symptoms. She believes she was
ultimately diagnosed with hemiplegic migraine.
She also has a history of concussion. She says that about 15 years ago, she had sudden pain in her left lower extremity which traveled to her right side she eventually had whole body pain. She was diagnosed with fibromyalgia. She was seen by
rheumatology and thinks that she tried Lyrica without great results. She says that at times no clear unifying diagnosis has been found for symptoms., Her brother has a history of multiple sclerosis and her mother has a history of fibromyalgia.
She does not think she has had recent imaging done.'
Patient reports that 11 days ago while on vacation in [place] she developed her typical stabbing/throbbing migraine. Intermittently throughout the past 11 days she has tried taking ibuprofen, rizatriptan (to which she had an itching reaction),
acetaminophen, ketorolac, magnesium for headache relief with only temporary relief of her symptoms. She also has Fioricet for headache relief but she has not been taking this. She is taking Topamax for headache prevention despite an extensive
history of kidney stones, one occurrence being last month. She is also on amitriptyline. She reports that at her most recent Neurology office visit they tried to order Emgality for her but her insurance wouldn't cover it. Currently, she reports that
the medications she received in the ER overnight have helped some but she still has a 3/10 headache that she describes as her head being in a vice. She has photo/phonophobia but no nausea/vomiting. She reports that typically she has one migraine day
per week. This prolonged course is unusual.
Past Medical History: Migraine headaches with hemiplegic migraine dx 20 years ago, kidney stones, pyelonephritis, IBS, pericarditis, sleep apnea, fibromyalgia, concussion, anxiety, depression, endometriosis, fibroids
Surgical History: x2, D&C, exploratory laparotomy x3, tonsillectomy, ureteroscopy with stone removal and stent placement 2014 and 2018
Family History: Brother- multiple sclerosis.
Social History: Former smoker. Occasional alcohol. Denies illicit drug use.
Allergies: See below.
Home Medications: See below.
Review of Symptoms:
Patient denies any fever, headache, chest pain, shortness of breath, GI or symptoms.
�Per the HPI.�All systems are reviewed negative except above.
Physical Exam:
The patient is afebrile, abdomen is nondistended, breathing is unlabored, skin is warm and dry, no edema.
Neurologic Examination:
The patient is awake, alert and oriented x 3. She is able to follow commands and answer questions appropriately. There is no aphasia or dysarthria. On cranial nerve assessment, pupils are 3 mm bilateral, round and reactive to light and
accommodation. Visual laughlin are full. Extraocular movements are intact. Facial sensations are intact and bilaterally symmetrical, there is no facial asymmetry. Hearing is intact bilaterally to normal conversation volume. Tongue palate and uvula are
midline. Sternocleidomastoid strengths are full bilaterally. Motor strengths are 5/5 bilateral upper and lower extremities on medical research Hallett scale. There is no drift or involuntary movement noted. Deep tendon reflexes are 2+ bilateral
upper and lower extremities and Babinski is absent bilaterally. There was no extinction noted on double simultaneous stimulation. Coordination is intact by finger to nose bilaterally.
Lab Results: See below.
Neuro Imaging:
1. CT Head/Neck 07/29/24: No evidence of large vessel occlusion, or arterial dissection. No abnormality appreciated on noncontrast head CT.
Differentials for the patient's presentation include:
1. Intractable migraine without aura.
Recommendations:
-DHE 1mg, diphenhydramine 25mg, and ondansetron 4mg x1 now for headache relief.
-Patient needs to contact Dr. Hernandez's office to work on getting insurance to approve a CGRP migraine relief medication; rimegepant, ubrogepant.
-Would wean off of topiramate due to frequent kidney stones.
-Increase amitriptyline from 20mg to 30mg (can go up to 50mg daily) to see if this helps with headache prevention.
-Do not see a role for further neurological imaging at this time.
Discussed patient care with: Dr. Otero, the patient
Vital Signs and Labs
-
Vital Signs and Labs:
Vital Signs
Temp Pulse Resp BP Pulse Ox
99.1 F 88 16 120/83 98
07/28/24 21:27 07/29/24 06:12 07/29/24 06:12 07/29/24 12:00 07/29/24 12:00
Lab Results
07/29/24 02:22
07/29/24 02:22
PT 13.7 Sec (11.4-14.6) 07/29/24 02:22
INR 1.00 07/29/24 02:22
APTT 24.0 Sec (23.4-35.0) 07/29/24 02:22
Sodium 142 mmol/L (135-145) 07/29/24 02:22
Potassium 4.1 mmol/L (3.5-5.1) 07/29/24 02:22
BUN 20 mg/dl (7-17) H 07/29/24 02:22
Glucose 98 mg/dl (70-99) 07/29/24 02:22
Calcium 9.3 mg/dl (8.4-10.2) 07/29/24 02:22
Medications
-
Home Medications
�Medication �Instructions �Recorded
escitalopram oxalate 10 mg tablet 20 mg PO DAILY Mental 02/25/09
Health/Anxiety
topiramate 25 mg tablet 50 mg PO BID Mental Health/Anxiety 07/21/12
docusate sodium 100 mg capsule 300 mg PO HS Constipation 11/27/20
lansoprazole 30 mg delayed 30 mg PO DAILY Gastrointestinal 11/27/20
release,disintegrating tablet issue
amitriptyline 10 mg tablet 20 mg PO HS 04/25/23
tizanidine 4 mg tablet (Zanaflex) 4 mg PO HS 04/25/23
cetirizine 10 mg tablet (Zyrtec) 10 mg PO DAILY 06/30/24
inulin 1.7 gram chewable tablet 3.4 g PO DAILY 06/30/24
(Fiber Gummies)
naproxen sodium 220 mg tablet 220 mg PO [id number] PRN mild pain 06/30/24
(Aleve)
norethindrone acetate 5 mg tablet 5 mg PO DIRECTED 06/30/24
(Gallifrey)
Allergies
-
Allergies
Allergy/AdvReac Type Severity Reaction Status Date / Time
rizatriptan (From Maxalt) Allergy Mild Itching Verified 07/28/24 21:31
adhesive Allergy Rash Verified 07/28/24 21:31
chlorpheniramine polistirex Allergy ITCHING Verified 07/28/24 21:31
(From Tussionex) BUT
'RESOLVES
WITH
BENADRYL'
ciprofloxacin (From Cipro) Allergy Anaphylaxis Verified 07/28/24 21:31
ciprofloxacin HCl (From Allergy Anaphylaxis Verified 07/28/24 21:31
Cipro)
doxycycline Allergy muscle Verified 07/28/24 21:31
aches/pain
hydrocodone polistirex (From Allergy itching, Verified 07/28/24 21:31
Tussionex) rash,
difficulty
breathing
Iodinated Contrast Media Allergy Itching Verified 07/28/24 21:31
(Iodinated Contrast- Oral
and IV Dye)
levofloxacin (From Levaquin) Allergy Anaphylaxis Verified 07/28/24 21:31
morphine Allergy itchy Verified 07/28/24 21:31
propoxyphene napsylate (From Allergy muscle Verified 07/28/24 21:31
Darvocet-N 100) spasms
sulfamethoxazole (From Allergy muscle Verified 07/28/24 21:31
Bactrim) weakness
(Bactrim)
trimethoprim (From Bactrim) Allergy muscle Verified 07/28/24 21:31
weakness
(Bactrim)
[2024-07-29] MEDS: DHE-45 1 MG IV (11:19)
[2024-07-29] MEDS: ZOFRAN 4 MG IV (11:19)
== END 2024-07-29 12:25 | disposition home or self-care (01) ==
LOC: EMR 21:23
PROVIDERS: CONSULT PHYSICIAN Psychiatry & Neurology Neurology; EMERGENCY PHYSICIAN Student in an Organized Health Care Education/Training Program; FAMILY PHYSICIAN Family Medicine
DX: R51.9 Headache, unspecified (principal); M79.7 Fibromyalgia; K21.9 Gastro-esophageal reflux disease without esophagitis; K58.9 Irritable bowel syndrome, unspecified; N80.9 Endometriosis, unspecified; I31.9 Disease of pericardium, unspecified; N12 Tubulo-interstitial nephritis, not specified as acute or chronic; G47.30 Sleep apnea, unspecified; F41.8 Other specified anxiety disorders; Z79.3 Long term (current) use of hormonal contraceptives; Z82.0 Family history of epilepsy and other diseases of the nervous system; Z87.442 Personal history of urinary calculi; Z87.891 Personal history of nicotine dependence; Z88.1 Allergy status to other antibiotic agents; Z88.2 Allergy status to sulfonamides; Z88.8 Allergy status to other drugs, medicaments and biological substances; Z90.89 Acquired absence of other organs; Z79.899 Other long term (current) drug therapy; Z91.041 Radiographic dye allergy status
CPT/HCPCS: 99284; 96365; 96375; 70496; 70498; 80053; 85025; 85610; 85652; 85730; Q9967

== ENCOUNTER 2024-11-03 17:15 | Emergency (ER) | payer MEDICARE, OTHER, SELFPAY ==
[2024-11-03 17:16] VITALS: BP 130/84
[2024-11-03 18:11] VITALS: BP 130/90
--- NOTE | 2024-11-03 18:50 | ED.GENMED ---
History of Present Illness
General
Chief Complaint: Chest Pain
Source: patient
Exam Limitations: none
Time Seen by Provider: 11/03/24 18:48
Nursing documentation reviewed up to this point in time: agreed with
History of Present Illness
History of Present Illness:
53-year-old female with past medical history of IBS, endometriosis, brachial plexopathy, who presents to the ER today with concerns of chest pain and palpitations. The chest pain began around 4 PM today. However, the palpitations started last
night. The chest pain is described as being centrally located in the chest and has been fairly constant. The pain worsens when lying down is somewhat less noticeable and sitting upright. She has occasional shortness of breath when speaking and
slight dizziness upon standing but currently is feeling well. She visited her urologist earlier today for follow-up appointment and noted her blood pressure to be slightly elevated which concerned her. She also had elevated heart rate at that
time. She reports that around 1 to 2 months ago she experienced similar symptoms but at that time was associated with tingling in her hands and feet which was eventually attributed to a complex migraine but patient denies a headache today. She
originally went to urgent care today but was sent to the ER for further evaluation. She reports that her brother experienced a heart attack at the age of 50 and her dad has a history of hypertension but there is no other history of cardiac disease
in the family. Patient denies any recent long distance travel any redness or swelling in the legs. Patient takes progesterone supplementation but denies any estrogen supplementation. She denies any syncopal episodes. Patient denies any cough,
fevers or chills, heavy lifting, trauma to the chest wall. She denies any abdominal pain or vomiting.
Past History
Past History
ED Past Medical History: Fibromyalgia, GERD and Other (kidney stones, migraines, hemiplegic migraines, irritable bowel syndrome, endometriosis, Pericarditis, Pyelonephritis, Sleep apnea)
ED Past Surgical History: (�2), Gynecological (Laparoscopy �3), Tonsilectomy and Urological (Ureteroscopy with stone removal and stent placement 2013 as well as 10/24/2017.)
Social History
Tobacco: Former smoker
Alcohol: Occasional
Drug: None
Personal:
Living: with family
Employment: Disabled
Family History
Family History: Other (non contributory)
Review of Systems
Review of Systems
All Other Systems: ROS reviewed and negative except as documented in HPI and ROS
Phy Exam
Physical Exam
Physical Exam:
General: Patient is well appearing and in no acute distress; non-toxic
Skin: Warm and dry, no rashes or lesions
Head: Normocephalic, atraumatic
Eyes: Sclera non-icteric. EOMs intact.
Cardiac: Regular rate and rhythm, no murmurs, no tenderness to palpation of external chest wall
Peripheral Vascular: No lower extremity swelling or edema
Pulm: Normal respiratory effort, no wheezes, rales, rhonchi
Abdomen: No abdominal tenderness to palpation
Neuro: CN II-XII intact, no focal neurologic deficits.
Psychiatric: Appropriate mood and affect.
Scores
Heart Score for Chest Pain Patients
STEMI patient?: No
History: Slightly or Non-Suspicious
ECG: Normal
Age: >45 - <65 years
Risk Factors: No Risk Factors
Troponin: </= Normal Limit
Heart Score for Chest Pain Patients: 1
Heart Score Risk: 2.5% MACE over next 6 weeks
Course
Orders/Labs/Results
Orders:
Orders
11/03/24 17:16
Electrocardiogram (*1) Urgent
Reason for Study: Chest Pain
EKG- Treatment ONCE
11/03/24 18:16
CR Chest - 2 Views Urgent
Comment:
Reason For Exam: cp
11/03/24 18:40
Complete Blood Count/With Diff Urgent
Comprehensive Metabolic Panel Urgent
Troponin I Urgent
11/03/24 19:08
D-Dimer Urgent
11/03/24 20:05
Sucralfate [Carafate] 1 gram PO NOW STA
11/03/24 21:06
Electrocardiogram (*1) Urgent
Reason for Study: Chest Pain
11/03/24 21:07
Troponin I Urgent
11/03/24 21:09
Ketorolac [Toradol] 15 mg IV NOW STA
Abnormal Lab Results
11/03/24
18:40
RBC 4.08 L 10^6/uL
(4.20-5.40)
Hgb 11.7 L g/dL
(12.0-16.0)
Hct 36.9 L %
(37.0-47.0)
MCHC 31.7 L g/dL
(33.0-37.0)
MPV 10.8 H fL
(7.4-10.4)
Chloride 111 H mmol/L
(98-107)
Glucose 131 H mg/dl
(70-99)
11/03/24 18:40
11/03/24 18:40
Vital Signs
Initial and Last Documented VS:
Initial Vital Signs
Temp Pulse Resp BP Pulse Ox
98.9 F 89 16 130/84 98
11/03/24 17:16 11/03/24 17:16 11/03/24 17:16 11/03/24 17:16 11/03/24 17:16
Last Documented Vital Signs
Temp Pulse Resp BP Pulse Ox
98.9 F 85 11 108/84 99
11/03/24 17:16 11/03/24 22:00 11/03/24 22:00 11/03/24 22:00 11/03/24 22:00
MDM/Problems Addressed
Differential Diagnosis Includes:
Differentials include ACS, PE, pericarditis, GERD, costochondritis, URI
MDM/Problems Addressed:
53-year-old female who presents to the ER today with concerns of palpitations and chest pain. Pain is centrally located. Seems to improve with sitting forward. On exam, patient well-appearing in no acute distress heart regular rate and rhythm
with no murmurs. I reviewed telemetry monitoring, no evidence of arrhythmia. Patient's ECG x 2 shows normal sinus rhythm with no evidence of ischemia no evidence of arrhythmia no evidence of PVCs or PACs. Patient's troponins were undetectable x
2. Patient's D-dimer is normal. CBC and CMP unremarkable.
Question if patient's were related to heartburn. She feels like she had a large meal today which may have worsened her symptoms. Did give dose of Carafate which did not seem to help. Patient has a lot of allergies and is on medications that may
interact with typical GERD medications. Did give dose of Toradol for possible costochondritis which seemed to help patient symptoms. ACS ruled out. Patient stable for discharge. In regards to patient's palpitations, recommended follow-up with
cardiology for potential Holter monitoring and further evaluation. Patient expressed understanding. Patient stable for discharge.
*Pulse Oximetry
SaO2: 100
Oxygen Mode of Delivery: Room air
Patient hypoxic: no
*Critical Care Note
Total Time (30-74mins, 75-104mins- exclusive of procedures): Not Applicable
Data Reviewed
Review of Other/Old Records Reveals: Records (Reviewed ER physician mentation from 07/29/2024 patient seen for migraine headache reviewed discharge summary from 07/01/2024 patient seen for right UVJ stone with mild right hydro)
Source: patient and records
Update Note
Update Note:
UPDATE
Initial troponin undetectable, D-dimer normal, patient still has pain. Considering pain started at 4 PM, will repeat troponin. Patient questions of symptoms related to heartburn. Will trial dose of Carafate as Pepcid interacts with zanaflex
9:00pm-Time for drawl of repeat troponin. Notified by nursing staff that Carafate did not really help patient's symptoms. Will try Toradol for possible costochondritis.
9:46pm- Update troponin negative. Patient notes mild improvement in pain with Toradol, feels well to go home. Patient had previously made an appointment with [facility] in the past but is not followed through, patient will call them tomorrow
ED Attending Note
-
Portions of this chart may have been created with voice recognition software.� Occasional wrong word or��sound alike� substitutions may have occurred due to the inherent limitations of voice recognition software.
Discharge Plan
Departure
Patient Disposition: Home (Routine Discharge)
Date of Disposition: 11/03/24
Time of Disposition: 21:52
Patient with high blood pressure during this ER visit?: Yes
Condition: Good
Discharge Problem:
Chest pain
Instructions: Costochondritis (DC), Chest pain (DC), BLOOD PRESSURE
Prescriptions:
No Action
escitalopram oxalate 10 MG tablet
20 mg PO DAILY
topiramate 25 MG tablet
50 mg PO BID
docusate sodium 100 MG capsule
300 mg PO HS
lansoprazole 30 MG tablet,disintegrat, delay rel
30 mg PO DAILY
tizanidine [Zanaflex] 4 mg Tablet
4 mg PO HS
amitriptyline 10 mg Tablet
20 mg PO HS
cetirizine [Zyrtec] 10 mg Tablet
10 mg PO DAILY
naproxen sodium [Aleve] 220 mg Tablet
220 mg PO [id number] PRN (Reason: mild pain)
Fiber Gummies 1.7 gram Tablet,Chewable
3.4 g PO DAILY
norethindrone acetate [Gallifrey] 5 mg Tablet
5 mg PO DIRECTED
Rx Instructions:
take 10 days after your period next dose due 07/01/24
Referrals:
Clint Hinkle MD [Active, Cardiology] - Call in 1-3 days for appt
Josiah Whittaker DO [Family Provider, Family Practice]
Activity Restrictions/Additional Instructions:
Please continue to monitor your symptoms.
PLEASE RETURN TO THE ER SHOULD YOU DEVELOP ACUTE WORSENING OR SYMPTOMS, SHORTNESS OF BREATH, INTRACTABLE NAUSEA OR VOMITING, LIGHTHEADEDNESS, DIZZINESS, LOSS CONSCIOUSNESS, OR ANY OTHER SIGNS OR SYMPTOMS WORRISOME TO YOU.
Interventions
Interventions:
*Risk Screen - Suicide Last Done: 11/03/24 17:18
*Neglect/Abuse Screening Last Done: 11/03/24 17:18
*Nursing Disposition Last Done: 11/03/24 22:05
ED- Cardiac Assessment Last Done: 11/03/24 18:44
Discharge Date and Time
Discharge Date/Time: 11/03/24 22:05
Print Language: THAI
[2024-11-03 18:52] LABS: Hematocrit 36.9 % (37.0-47.0); Hemoglobin 11.7 g/dL (12.0-16.0); Mean Corp Hgb Conc. 31.7 g/dL (33.0-37.0); Mean Corpuscular Volume 90.4 fL (81.0-99.0); Nucleated Red Blood Cells % 0 %; Platelet Count 285 10^3/uL (130-400); Red Cell Dist. Width 12.4 % (11.5-14.5)
[2024-11-03 19:06] VITALS: BP 119/81
[2024-11-03 19:11] LABS: ALT (SGPT) 17 U/L (0-35); AST (SGOT) 17 U/L (14-36); Albumin 4.1 g/dl (3.5-5.0); Alkaline Phosphatase 104 U/L (38-126); Blood Urea Nitrogen 16 mg/dl (7-17); Calcium 9.2 mg/dl (8.4-10.2); Carbon Dioxide 23 mmol/L (22-30); Chloride 111 mmol/L (98-107); Glucose 131 mg/dl (70-99); Potassium 3.6 mmol/L (3.5-5.1); Sodium 141 mmol/L (135-145); Total Protein 6.8 g/dl (6.3-8.2); eGFR > 60.00
[2024-11-03 19:19] LABS: Troponin I < 0.012 ng/ml
[2024-11-03 19:27] LABS: D-Dimer 0.32 ug/mlFEU (0.00-0.50)
[2024-11-03 20:00] VITALS: BP 120/86
[2024-11-03] MEDS: CARAFATE 1 GRAM PO (20:14)
[2024-11-03 21:00] VITALS: BP 118/84
[2024-11-03] MEDS: TORADOL 15 MG IV (21:16)
[2024-11-03 21:38] LABS: Troponin I < 0.012 ng/ml
[2024-11-03 22:00] VITALS: BP 108/84
== END 2024-11-03 22:05 | disposition home or self-care (01) ==
LOC: EMR 17:15
PROVIDERS: Physician Assistant; EMERGENCY PHYSICIAN Emergency Medicine; FAMILY PHYSICIAN Family Medicine
DX: R07.9 Chest pain, unspecified (principal); G47.30 Sleep apnea, unspecified; K21.9 Gastro-esophageal reflux disease without esophagitis; Z87.891 Personal history of nicotine dependence
CPT/HCPCS: 99285; 96374; 71046; 80053; 84484; 85025; 85379; 93005

== ENCOUNTER → 2024-11-10 10:33 | Outpatient (REF) | payer MEDICARE, OTHER, SELFPAY ==
[2024-11-10 11:27] LABS: Hematocrit 37.7 % (37.0-47.0); Hemoglobin 11.7 g/dL (12.0-16.0); Mean Corp Hgb Conc. 31.0 g/dL (33.0-37.0); Mean Corpuscular Volume 91.7 fL (81.0-99.0); Nucleated Red Blood Cells % 0 %; Platelet Count 285 10^3/uL (130-400); Red Cell Dist. Width 12.7 % (11.5-14.5)
[2024-11-10 11:32] LABS: Urine Character Clear (Clear)
[2024-11-10 11:48] LABS: Urine Red Blood Cell 0-2 /HPF (0-2); Urine White Cell 0-2 /HPF (0-5)
[2024-11-10 12:09] LABS: ALT (SGPT) 15 U/L (0-35); AST (SGOT) 16 U/L (14-36); Albumin 4.2 g/dl (3.5-5.0); Alkaline Phosphatase 110 U/L (38-126); Blood Urea Nitrogen 15 mg/dl (7-17); Calcium 9.6 mg/dl (8.4-10.2); Carbon Dioxide 23 mmol/L (22-30); Chloride 109 mmol/L (98-107); Glucose 92 mg/dl (70-99); HDL Cholesterol 32 mg/dl; LDL Cholesterol, Calculated 133 mg/dl; Potassium 4.9 mmol/L (3.5-5.1); Sodium 139 mmol/L (135-145); Total Protein 7.2 g/dl (6.3-8.2); Very Low Density Lipoprotein 28 mg/dl (0-30); eGFR > 60.00
== END ==
LOC: REG 10:33
PROVIDERS: ATTENDING PHYSICIAN Specialist; FAMILY PHYSICIAN Family Medicine; REFERRING PHYSICIAN Internal Medicine Cardiovascular Disease
DX: N39.0 Urinary tract infection, site not specified (principal); Z82.49 Family history of ischemic heart disease and other diseases of the circulatory system; I63.9 Cerebral infarction, unspecified
CPT/HCPCS: 36415; 80053; 80061; 81003; 81015; 82248; 84100; 85025; 87086

== ENCOUNTER → 2025-02-02 14:52 | Outpatient (REF) | payer MEDICARE, OTHER, SELFPAY | LOC: PAVMRI 14:52 | PROVIDERS: ATTENDING PHYSICIAN Student in an Organized Health Care Education/Training Program; FAMILY PHYSICIAN Family Medicine | DX: M47.814 Spondylosis without myelopathy or radiculopathy, thoracic region (principal) | CPT/HCPCS: 72146 ==

== ENCOUNTER → 2025-02-09 13:46 | Outpatient (REF) | payer MEDICARE, OTHER, SELFPAY | LOC: HWRAD 13:46 | PROVIDERS: ATTENDING PHYSICIAN Internal Medicine Cardiovascular Disease; FAMILY PHYSICIAN Family Medicine | DX: E78.00 Pure hypercholesterolemia, unspecified (principal); Z82.49 Family history of ischemic heart disease and other diseases of the circulatory system | CPT/HCPCS: 75571 ==

== ENCOUNTER 2025-02-10 04:04 | Observation (INO) | payer MEDICARE, OTHER, SELFPAY ==
[2025-02-09 16:48] LABS: Hematocrit 36.8 % (37.0-47.0); Hemoglobin 11.6 g/dL (12.0-16.0); Mean Corp Hgb Conc. 31.5 g/dL (33.0-37.0); Mean Corpuscular Volume 88.9 fL (81.0-99.0); Nucleated Red Blood Cells % 0 %; Platelet Count 286 10^3/uL (130-400); Red Cell Dist. Width 13.4 % (11.5-14.5); Urine Character Clear (Clear)
[2025-02-09 16:59] LABS: HCG, Serum Qualitative Screen Negative
[2025-02-09 17:03] LABS: ALT (SGPT) 16 U/L (0-35); AST (SGOT) 19 U/L (14-36); Albumin 4.1 g/dl (3.5-5.0); Alkaline Phosphatase 115 U/L (38-126); Blood Urea Nitrogen 11 mg/dl (7-17); Calcium 9.4 mg/dl (8.4-10.2); Carbon Dioxide 20 mmol/L (22-30); Chloride 107 mmol/L (98-107); Glucose 137 mg/dl (70-99); Lipase 183 U/L (23-300); Potassium 4.4 mmol/L (3.5-5.1); Sodium 136 mmol/L (135-145); Total Protein 7.1 g/dl (6.3-8.2); eGFR > 60.00
[2025-02-09] MEDS: TORADOL 15 MG IV (19:05)
[2025-02-09] MEDS: NSS 1000 IV (19:06)
--- NOTE | 2025-02-09 19:52 | ED.GENMED ---
History of Present Illness
<Janneth Clay PA-C - Last Filed: 02/10/25 13:16>
General
Chief Complaint: Abdominal Pain
Source: patient
Exam Limitations: none
Time Seen by Provider: 02/09/25 18:08
Nursing documentation reviewed up to this point in time: agreed with
History of Present Illness
History of Present Illness:
Patient is a 54-year-old female with history of kidney stones who presents to the emergency department with abdominal pain. Patient states that she initially noticed vague central abdominal discomfort on Thursday which was initially resolved with
Motrin. However, over the past few days pain has worsened requiring her to take a Percocet that she had at home. She now describes generalized discomfort throughout her abdomen as well as pain in her right flank. She denies any fever,
nausea/vomiting, or diarrhea/constipation.
In addition, since yesterday she has had what she describes as 'vulvar pain'. She denies any dysuria or hematuria. She denies any abnormal vaginal bleeding or discharge.
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
Patient had a CT calcium score performed earlier today.
Past History
<Janneth Clay PA-C - Last Filed: 02/10/25 13:16>
Past History
ED Past Medical History: Fibromyalgia, GERD and Other (kidney stones, migraines, hemiplegic migraines, irritable bowel syndrome, endometriosis, Pericarditis, Pyelonephritis, Sleep apnea)
ED Past Surgical History: (�2), Gynecological (Laparoscopy �3), Tonsilectomy and Urological (Ureteroscopy with stone removal and stent placement 2013 as well as 10/24/2017.)
Social History
Tobacco: Former smoker
Alcohol: Occasional
Drug: None
Personal:
Living: with family
Employment: Disabled
Family History
Family History: Other (non contributory)
Review of Systems
<Janneth Clay PA-C - Last Filed: 02/10/25 13:16>
Review of Systems
Allergies reviewed?: Yes
All Other Systems: ROS reviewed and negative except as documented in HPI and ROS
Phy Exam
<Janneth Clay PA-C - Last Filed: 02/10/25 13:16>
Physical Exam
Physical Exam:
Vitals: Patient's vital signs are stable. Afebrile
General: Patient is well appearing, no acute distress
Skin: Warm and dry, no rashes or lesions
Head: Normocephalic, atraumatic
Eyes: Sclera nonicteric.
Throat: Protecting airway
Neck: Normal ROM, no cervical spine tenderness, no meningismus
Cardiac: Regular rate and rhythm, no murmurs.
Pulm: Normal respiratory effort. Lungs clear
.
Abdomen: Abdomen soft. Mild diffuse abdominal tenderness. No rebound or guarding. No CVA tenderness.
Pelvic: External genitalia normal appearing without lesions, ulcerations, or adenopathy. Vaginal lining appears somewhat erythematous with off-white, clumpy discharge present in vagina. Cervix appears normal to inspection without bleeding or
lesions. No cervical motion tenderness
Extremities: No evidence of cyanosis or edema
Neuro: AAOx3. Grossly intact
Psychiatric: Normal affect.
Course
<Janneth Clay PA-C - Last Filed: 02/10/25 13:16>
Orders/Labs/Results
Orders:
Orders
02/09/25 16:01
Test Result ONCE
02/09/25 16:23
Complete Blood Count/With Diff Urgent
Comprehensive Metabolic Panel Urgent
HCG, Serum Qualitative Screen Urgent
Comment: Notify provider if positive test present
Lipase Urgent
Urinalysis Reflex To Culture Urgent
Date Specimen was Collected: 02/09/25
Time Specimen was Collected: 16:01
12/11/25 18:39
0.9% Sodium Chloride 1000 ml [Nss] 1,000 ml IV BOLUS
Ketorolac [Toradol] 15 mg IV NOW STA
Pelvis & Transvaginal US [US Pelvis W Transvag Combined] Urgent
Comment:
Reason For Exam: pelvic pain
Renal Only US [US Renal Only W/O Bladder] Urgent
Comment:
Reason For Exam: Right flank pain; hx stones
02/09/25 23:07
Diphenhydramine [Benadryl] 25 mg IV NOW STA
HYDROmorphone [Dilaudid] 0.5 mg IV NOW STA
02/09/25 23:10
Hydrocortisone Sod Succinate [Solu-Cortef] 200 mg IV NOW STA
02/10/25
CT Abd/pelvis W Iv Cont Urgent
Reason For Exam: diffuse abdominal pain
02/10/25 01:16
Diphenhydramine [Benadryl] 25 mg IV NOW STA
02/10/25 02:36
Fluconazole [Diflucan] 150 mg PO NOW STA
02/10/25 03:42
Chlamydia/GC by PCR Routine
TOD Source: Urine
Specimen Description:
Source:: URINE
02/10/25 03:44
Admit/Transfer Patient As Directed
Co-Sign Provider:
Level of Care: Observation services
Assign to:: Medical/Surgical
Physician / Group: Grant
Diagnosis: Abd Pain
02/10/25 03:45
PRN Pain Medication Management As Directed
May give lesser potent ordered pain med per pt: Yes
preference::
Protocol:: Medication orders for pain may be administered in a
manner that supports deferring to patient preference
when the pt is:
- Requesting an ordered lesser potent pain medication.
Least to most potent pain medications are defined
as: acetaminophen < NSAID < tramadol < opioids
(morphine, oxycodone, hydromorphone).
- Requesting a lesser dose of the same medication IF
ORDERED.
- Requesting a less intrusive route of administration
if both routes are prescribed by the provider (PO <
IV).
02/10/25 03:46
Code Status As Directed
Resuscitation Status: Full Code
02/10/25 04:36
Acetaminophen [Tylenol] 650 mg PO Q4HPRN PRN
HYDROmorphone [Dilaudid] 0.5 mg IV Q4HPRN PRN
Ketorolac [Toradol] 10 mg IV Q6HPRN PRN
02/10/25 Breakfast
Clear Liquid
At Your Request: Full Participation
Does patient need a safe tray?: Yes
02/10/25 06:29
0.9% Sodium Chloride 1000 ml [Nss] 1,000 ml IV 100 mls/hr
Tizanidine [Zanaflex] 4 mg PO HS PRN Muscle pain / spasm Muscle pain / spasm
02/10/25 06:29
Consult Notification Routine
Specialty to Notify: BULWARK CARPENTER
Date consulting provider notified: 02/10/25
Time consulting provider notified: 07:41
Notified:: Provider
Consult BULWARK CARPENTER [BULWARK CARPENTER CONSULT] Routine
Consulting Provider: Corie Da Silva
Was physician already notified: No
Reason for consult: Vaginal Pain / Abdominal Pain
Activity As Directed
Activity Level: Ambulate
I/O [Intake/ Output] As Directed
Frequency: Per unit guidelines
Pneumatic Compression Sleeves As Directed
Type: Knee high
Vital Signs As Directed
Frequency: Per unit guidelines
Oxygen Therapy [O2 Therapy] [RESP] Routine
Titrate/Wean O2 to maintain O2 sat greater than (%): 94
DX Deep Vein Thrombosis Video Routine
02/10/25 06:40
Lactic Acid Routine
02/10/25 08:00
Escitalopram Oxalate [Lexapro] 20 mg PO DAILY
Lansoprazole [Prevacid] 30 mg PO DAILY
Topiramate [Topamax] 50 mg PO BID
02/10/25 22:00
Amitriptyline [Elavil] 20 mg PO HS
02/11/25 06:00
Basic Metabolic Panel IN AM
Complete Blood Count/No Diff IN AM
LFT [Rlhui-Dhmj-Ijptduk] IN AM
Abnormal Lab Results
02/09/25
16:23
RBC 4.14 L 10^6/uL
(4.20-5.40)
Hgb 11.6 L g/dL
(12.0-16.0)
Hct 36.8 L %
(37.0-47.0)
MCHC 31.5 L g/dL
(33.0-37.0)
MPV 10.6 H fL
(7.4-10.4)
Carbon Dioxide 20 L mmol/L
(22-30)
Glucose 137 H mg/dl
(70-99)
02/09/25 16:23
02/09/25 16:23
Vital Signs
Initial and Last Documented VS:
Initial Vital Signs
Temp Pulse Resp BP Pulse Ox
98.7 F 94 16 114/81 100
02/09/25 15:57 02/09/25 15:57 02/09/25 15:57 02/09/25 15:57 02/09/25 15:57
Last Documented Vital Signs
Temp Pulse Resp BP Pulse Ox
98.3 F 102 16 116/69 98
02/10/25 08:26 02/10/25 10:45 02/10/25 08:26 02/10/25 10:45 02/10/25 08:26
Avinashlt;Taurus Bird, DO - Last Filed: 02/10/25 02:54>
Orders/Labs/Results
Orders:
Orders
02/09/25 16:01
Test Result ONCE
02/09/25 16:23
Complete Blood Count/With Diff Urgent
Comprehensive Metabolic Panel Urgent
HCG, Serum Qualitative Screen Urgent
Comment: Notify provider if positive test present
Lipase Urgent
Urinalysis Reflex To Culture Urgent
Date Specimen was Collected: 02/09/25
Time Specimen was Collected: 16:01
02/09/25 18:39
0.9% Sodium Chloride 1000 ml [Nss] 1,000 ml IV BOLUS
Ketorolac [Toradol] 15 mg IV NOW STA
Pelvis & Transvaginal US [US Pelvis W Transvag Combined] Urgent
Comment:
Reason For Exam: pelvic pain
Renal Only US [US Renal Only W/O Bladder] Urgent
Comment:
Reason For Exam: Right flank pain; hx stones
02/09/25 23:07
Diphenhydramine [Benadryl] 25 mg IV NOW STA
HYDROmorphone [Dilaudid] 0.5 mg IV NOW STA
02/09/25 23:10
Hydrocortisone Sod Succinate [Solu-Cortef] 200 mg IV NOW STA
02/10/25
CT Abd/pelvis W Iv Cont Urgent
Reason For Exam: diffuse abdominal pain
02/10/25 01:16
Diphenhydramine [Benadryl] 25 mg IV NOW STA
02/10/25 02:36
Fluconazole [Diflucan] 150 mg PO NOW STA
02/10/25 03:42
Chlamydia/GC by PCR Routine
TOD Source: Urine
Specimen Description:
Source:: URINE
02/10/25 03:44
Admit/Transfer Patient As Directed
Co-Sign Provider:
Level of Care: Observation services
Assign to:: Medical/Surgical
Physician / Group: Grant
Diagnosis: Abd Pain
02/10/25 03:45
PRN Pain Medication Management As Directed
May give lesser potent ordered pain med per pt: Yes
preference::
Protocol:: Medication orders for pain may be administered in a
manner that supports deferring to patient preference
when the pt is:
- Requesting an ordered lesser potent pain medication.
Least to most potent pain medications are defined
as: acetaminophen < NSAID < tramadol < opioids
(morphine, oxycodone, hydromorphone).
- Requesting a lesser dose of the same medication IF
ORDERED.
- Requesting a less intrusive route of administration
if both routes are prescribed by the provider (PO <
IV).
02/10/25 03:46
Code Status As Directed
Resuscitation Status: Full Code
02/10/25 04:36
Acetaminophen [Tylenol] 650 mg PO Q4HPRN PRN
HYDROmorphone [Dilaudid] 0.5 mg IV Q4HPRN PRN
Ketorolac [Toradol] 10 mg IV Q6HPRN PRN
02/10/25 Breakfast
Clear Liquid
At Your Request: Full Participation
Does patient need a safe tray?: Yes
02/10/25 06:29
0.9% Sodium Chloride 1000 ml [Nss] 1,000 ml IV 100 mls/hr
Tizanidine [Zanaflex] 4 mg PO HS PRN Muscle pain / spasm Muscle pain / spasm
02/10/25 06:29
Consult Notification Routine
Specialty to Notify: BULWARK CARPENTER
Date consulting provider notified: 02/10/25
Time consulting provider notified: 07:41
Notified:: Provider
Consult BULWARK CARPENTER [BULWARK CARPENTER CONSULT] Routine
Consulting Provider: Corie Da Silva
Was physician already notified: No
Reason for consult: Vaginal Pain / Abdominal Pain
Activity As Directed
Activity Level: Ambulate
I/O [Intake/ Output] As Directed
Frequency: Per unit guidelines
Pneumatic Compression Sleeves As Directed
Type: Knee high
Vital Signs As Directed
Frequency: Per unit guidelines
Oxygen Therapy [O2 Therapy] [RESP] Routine
Titrate/Wean O2 to maintain O2 sat greater than (%): 94
DX Deep Vein Thrombosis Video Routine
02/10/25 06:40
Lactic Acid Routine
02/10/25 08:00
Escitalopram Oxalate [Lexapro] 20 mg PO DAILY
Lansoprazole [Prevacid] 30 mg PO DAILY
Topiramate [Topamax] 50 mg PO BID
02/10/25 22:00
Amitriptyline [Elavil] 20 mg PO HS
02/11/25 06:00
Basic Metabolic Panel IN AM
Complete Blood Count/No Diff IN AM
LFT [Ivdpx-Wrlz-Hbiosqa] IN AM
Abnormal Lab Results
02/09/25
16:23
RBC 4.14 L 10^6/uL
(4.20-5.40)
Hgb 11.6 L g/dL
(12.0-16.0)
Hct 36.8 L %
(37.0-47.0)
MCHC 31.5 L g/dL
(33.0-37.0)
MPV 10.6 H fL
(7.4-10.4)
Carbon Dioxide 20 L mmol/L
(22-30)
Glucose 137 H mg/dl
(70-99)
02/09/25 16:23
02/09/25 16:23
Vital Signs
Initial and Last Documented VS:
Initial Vital Signs
Temp Pulse Resp BP Pulse Ox
98.7 F 94 16 114/81 100
02/09/25 15:57 02/09/25 15:57 02/09/25 15:57 02/09/25 15:57 02/09/25 15:57
Last Documented Vital Signs
Temp Pulse Resp BP Pulse Ox
98.3 F 102 16 116/69 98
02/10/25 08:26 02/10/25 10:45 02/10/25 08:26 02/10/25 10:45 02/10/25 08:26
<Janneth Clay PA-C - Last Filed: 02/10/25 13:16>
MDM/Problems Addressed
Differential Diagnosis Includes:
Not limited to: Renal colic, UTI, pyelonephritis, vaginitis, clitoral atrophy, appendicitis, etc.
MDM/Problems Addressed:
54-year-old female with 3 days of vague abdominal discomfort and vaginal pain. History of clitoral atrophy and kidney stones. No fever, vomiting, changes in bowel habits, or urinary symptoms. No abnormal vaginal bleeding or discharge. Vitals and
physical exam as above.
Symptoms very vague with broad differential. Basic labs were sent in triage without clinically significant abnormalities. Urine does not appear infected. Given patient has had multiple CT scans in the past, we will start with renal and pelvic
ultrasound as patient does not have surgical abdomen on evaluation with overall low suspicion for acute intra-abdominal infectious process. Will treat pain and reassess.
Pelvic exam did not reveal any acute abnormalities possible mild vulvovaginal candidiasis.
Update: Ultrasound not acute findings. On reassessment�patient states her pain is increasing, is not requiring dose of IV Dilaudid. At this point�decision was made to obtain CT scan abdomen/pelvis. Allergy to IV contrast dye noted�will pretreat
with Benadryl and steroids
Update: CT scan shows no acute abnormalities. On reassessment�patient still having significant discomfort. Workup in emergency department negative for acute process. Do not suspect infection. Lengthy discussion with patient and attending
physician regarding disposition, including discharge home with return precautions or admission. Patient does not feel she can manage his pain at home. In light of this�will admit patient for intractable abdominal pain of unclear etiology, serial
abdominal exams. Patient accepted to hospital service in stable condition.
Chronic conditions affecting care:
History of kidney stones and clitoral atrophy
Acute Exacerbation and/or Progression of Chronic Illness:
N/A
<Janneth Clay PA-C - Last Filed: 02/10/25 13:16>
*Radiology
Radiology exam reviewed: radiology read reviewed
*Pulse Oximetry
SaO2: 100
Oxygen Mode of Delivery: Room air
Patient hypoxic: no
*EKG
Interpreted by ED Provider?: NA
*Deicer Finisher Interpretation
Rate: Deicer Finisher- N/A
*Critical Care Note
Total Time (30-74mins, 75-104mins- exclusive of procedures): Not Applicable
<Janneth Clay PA-C - Last Filed: 02/10/25 13:16>
Patient Management
Discussion with other providers: Hospitalist
ED Attending Note
<Janneth Clay PA-C - Last Filed: 02/10/25 13:16>
-
Portions of this chart may have been created with voice recognition software.� Occasional wrong word or��sound alike� substitutions may have occurred due to the inherent limitations of voice recognition software.
<Taurus Bird DO - Last Filed: 02/10/25 02:54>
ED Attending Note
Patient seen and examined by attending physician: Yes
I performed the substantive portion of visit, reviewed & personally made and approve the management plan that is documented in note by myself or TETO.: Yes
ED Attending Note:
54-year-old female with generalized abdominal pain. She does have a chronic history of clitoral atrophy. She states that tonight the pain had worsened. Patient states that this pain is distinctly different from her clitoral atrophy. She has had
kidney stones and reports that the pain is not similar. Patient has had ultrasound and CAT scan. The decision to CAT scan was weighed heavily as patient has had multiple CAT scans in the past. CT scan did not show any acute abnormalities.
Patient still having pain despite pain medications. Patient hesitant to go home. Patient was seen in conjunction with the PA. I have reviewed and agree with her history and treatment plan. On my independent physical exam patient is awake alert
and oriented, in moderate acute distress. Abdomen is slightly distended though not bloated or tympanitic. She does have generalized tenderness to palpation. Skin is warm and dry. Plan is to admit to the hospitalist service.
Discharge Plan
Departure
Patient Disposition: Admit
Date of Disposition: 02/10/25
Time of Disposition: 02:37
Presentation/result/management discussed w/ accepting MD/DO: Hospitalist
Discharge Problem:
Generalized abdominal pain
Interventions
Interventions:
*Risk Screen - Suicide Last Done: 02/09/25 15:57
*General Assessment Last Done: 02/09/25 17:44
*Neglect/Abuse Screening Last Done: 02/09/25 15:57
*ED COVID-19 Vaccine History Last Done: 02/09/25 17:44
*ED Influenza Vaccine History Last Done: 02/09/25 17:44
[facility] Fall Risk Assessment Tool Last Done: 02/09/25 17:42
*Nursing Disposition Last Done: 02/10/25 06:34
KX-Zbmaui-Gtmvrqaupl Assessment Last Done: 02/09/25 17:44
Discharge Date and Time
Discharge Date/Time: 02/10/25 06:34
[2025-02-09] MEDS: SOLU-CORTEF 200 MG IV (23:59)
[2025-02-10] MEDS: DILAUDID 0.5 MG IV (00:01)
[2025-02-10] MEDS: BENADRYL 25 MG IV ×2 (01:47)
--- NOTE | 2025-02-10 03:50 | HPS.HSE ---
Family Physician
-
Family Physician: Josiah Whittaker
Chief Complaint
-
Abd Pain
History of Present Illness
Patient is a 54y F with PMH significant for endometriosis, migraines and fibromyalgia who presents to ED complaining of abdominal pain and vaginal pain. Patient states that symptoms started Thursday with abdominal pain around the umbilicus.
Patient reports intermittent / episodic pain mostly in the abdomen - with occasional 'twinges' of pain in the R flank. She took Advil with some temporary relief of he pain; however, her symptoms always recurred. Patient has had kidney stones in
the past and felt that current symptoms were similar. Last PM she developed vaginal pain as well (with continued mid-abdominal pain). She had no relief with Advil and took Percocet x 2 doses last PM for relief of her pain.
Today her symptoms seemed much better - until this evening when abdominal pain and vaginal pain both returned with increased intensity.
Patient reports some mild nausea with no emesis. No diarrhea, black stool / bloody stool, etc.
No urinary complaints. No vaginal discharge.
Patient reports that she has had recent increase in sexual activity with her boyfriend. She indicates that they are in a monogamous relationship.
She has prior history of clitoral atrophy - for which she has been on amitriptyline with good results.
Medical History
Past Medical History
Past Medical History: Reports Other
Additional Past Medical History:
Endometriosis
Fibromyalgia
Migraine Headaches
Chronic Pain
Clitoral Atrophy
Past Surgical History: Reports Other
Additional Past Surgical History:
Ex Lap (in her 20s for endometriosis)
x 2
Multiple cystoscopies, lithotripsies, stents
Social History
Tobacco: Former Smoker (Quit smoking in her 20s.)
Alcohol: Occasional (Very rare.)
Drug: None
Family History
Family History: Not pertinent
Allergies / Home Medications
Allergies reflects when Allergies were last updated in [employer].
Home Medications with original date entered in [facility]
Allergy/Medication List:
Allergies
Allergy/AdvReac Type Severity Reaction Status Date / Time
rizatriptan (From Maxalt) Allergy Mild Itching Verified 02/09/25 15:57
adhesive Allergy Rash Verified 02/09/25 15:57
chlorpheniramine polistirex Allergy ITCHING Verified 02/09/25 15:57
(From Tussionex) BUT
'RESOLVES
WITH
BENADRYL'
ciprofloxacin (From Cipro) Allergy Anaphylaxis Verified 02/09/25 15:57
ciprofloxacin HCl (From Allergy Anaphylaxis Verified 02/09/25 15:57
Cipro)
doxycycline Allergy muscle Verified 02/09/25 15:57
aches/pain
hydrocodone polistirex (From Allergy itching, Verified 02/09/25 15:57
Tussionex) rash,
difficulty
breathing
Iodinated Contrast Media Allergy Itching Verified 02/09/25 15:57
(Iodinated Contrast- Oral
and IV Dye)
levofloxacin (From Levaquin) Allergy Anaphylaxis Verified 02/09/25 15:57
morphine Allergy itchy Verified 02/09/25 15:57
propoxyphene napsylate (From Allergy muscle Verified 02/09/25 15:57
Darvocet-N 100) spasms
sulfamethoxazole (From Allergy muscle Verified 02/09/25 15:57
Bactrim) weakness
(Bactrim)
trimethoprim (From Bactrim) Allergy muscle Verified 02/09/25 15:57
weakness
(Bactrim)
Home Medications
escitalopram oxalate 10 mg tablet 20 mg PO DAILY Mental Health/Anxiety 02/25/09
topiramate 25 mg tablet 50 mg PO BID Mental Health/Anxiety 07/21/12
lansoprazole 30 mg delayed release,disintegrating tablet 30 mg PO DAILY Gastrointestinal issue 11/27/20
amitriptyline 10 mg tablet 20 mg PO HS 04/25/23
tizanidine 4 mg tablet (Zanaflex) 4 mg PO HS 04/25/23
cetirizine 10 mg tablet (Zyrtec) 10 mg PO DAILY 06/30/24
norethindrone acetate 5 mg tablet (Gallifrey) 5 mg PO DIRECTED 06/30/24
Review of Systems
-
History Source: Patient
A 12 point ROS was completed and negative except as noted: Yes
Constitutional: Reports Fatigue; Denies Fever or Chills
Respiratory: Denies Cough or Trouble Breathing
Cardiac: Denies Chest Pain or Palpitations
Abdomen/GI: Reports Abdominal Pain and Nausea; Denies Vomiting, Diarrhea, Constipated, Bloody Stools, Black Stools or Anorexia
: Reports Flank Pain and Other (Vaginal pain. No bleeding / discharge. ); Denies Dysuria or Frequency
Musculoskeletal: Denies Joint Pain or Edema
Neurological: Denies Dizzy or Headache
Psych: Denies Depression or Anxiety
Physical Exam
Vital Signs
Vital Signs
Temp Pulse Resp BP Pulse Ox
98.7 F 91 12 124/85 97
02/09/25 15:57 02/10/25 03:00 02/10/25 03:00 02/10/25 03:00 02/10/25 03:00
Physical Exam
General: Other (54y F in mild distress due to abdominal pain.)
HEENT: Moist mucous membranes
Respiratory: Clear; No Wheezes, Rales or Rhonchi
Cardiac: S1/S2 and Regular Rhythm; No Murmur
GI: Soft, Non Distended, Normal Bowel Sounds and Other (Mild suprapubic tenderness / lower abdominal tenderness. Pos BS.)
Musculoskeletal: No Clubbing, No Cyanosis and No Edema
Neuro: AO x 3
Laboratory Results
-
02/09/25 16:23
02/09/25 16:23
Laboratory Results
Total Bilirubin 0.4 mg/dl (0.2-1.3) 02/09/25 16:23
AST 19 U/L (14-36) 02/09/25 16:23
ALT 16 U/L (0-35) 02/09/25 16:23
Alkaline Phosphatase 115 U/L (38-126) 02/09/25 16:23
Lipase 183 U/L (23-300) 02/09/25 16:23
Impression/Plan
-
A/P: Patient is a 54y F with PMH significant for endometriosis and fibromyalgia who presents to ED complaining of abdominal pain and vaginal pain x several days.
Abdominal Pain
Vaginal Pain
- Observe overnight for further evaluation and treatment.
- Evaluation in the ED has been largely unremarkable with normal labs. UA unremarkable.
- Imaging studies reveal only small amount of endocervical fluid - potentially c/w cervicitis.
- CT, Pelvic US and Renal US all completed with no other significant findings.
- No evidence of ureteral stone, obstruction, bowel inflammation, etc.
- Continue supportive care for now with pain control, IVFs, etc.
- WINDOW INSTALLER evaluation for additional exam / recommendations.
- Follow for any new / focal symptoms or complaints.
- Follow temperature curve.
Fibromyalgia
Migraine Headaches
Anxiety / Depression
- Continue usual home medication regimen without changes.
DVT Prophylaxis: SCDs
Code Status: Full
[2025-02-10] MEDS: DIFLUCAN 150 MG PO (03:52)
[2025-02-10] MEDS: TORADOL 10 MG IV (04:47)
[2025-02-10] MEDS: NSS 1000 IV (06:43)
[2025-02-10] MEDS: TYLENOL 650 MG PO (06:44)
[2025-02-10] MEDS: LEXAPRO 20 MG PO (08:12)
[2025-02-10] MEDS: PREVACID 30 MG PO (08:12)
[2025-02-10] MEDS: TOPAMAX 50 MG PO (08:12)
--- NOTE | 2025-02-10 11:56 | CON.MD ---
Consultation - Medical
-
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 Onset sx since Thursday. treated herself with Apple Cider vinegar for 2 days. with no improvement. Took advil and
pain resolved. recurrence pain brought her to ER for evaluation. Pain episodic. bowels irreg. Dxd with clitoral atrophy two years ago and started on amitryptiline 10 mg. Dose increased 20 mg. sxs related to oral sex. Pt seen regularly by Supervisor Gluing. She
was started on cyclic norethindrone for irregular bleeding. now taking it daily Workup in ER included labs, ct scan: mod stool, small hiatal hernia, pelvic us essentially normal, renal US kidney stones. at time of exam pt comfortable and hungry
PGYN hx denies abn pap and up to date with paps, abnormal uterine bleeding D and C 2023 and neg, endometriosis, clitoral atrophy, perimenopause,
Pob hx sp ab x 1, CS x2
PMH: migraines, fibromyalgia, kidney stones (Dr. Ayala)
PSH: laparoscoy, cs x 2, cystoscopy, stent placement
Multiple allergies see list
Meds
escitalopram 20 q d
TOPAMAX 50 MGG BID
LANSOPRAZOLE 30 MG PO QD
amitryptiline 20 mg po qhd
tizanadine 4hg qhs
zyrtec 10 mg qd
norethindrone acetate 5 mg daily
SH no cigs now, no etoh, no rec drug, on disability, no regular exercise
FH does not add
ROS irreg bowels, constip, hemorrhoids, no vaginal discharge
PE wf in nad
vss afeb
lungs cl
cor rrr
abd +bs soft, nt, no rebound no guarding, well healed pfannenstiel scar
ext nt
no cvat
vulva, bus: no clitoral abnormality noted, no erythema, no lesions noted
vagina, mild atrophy, thin white dc
cvx stenotic and anemic appearing, no cmt
ut small retroverted
no adnexal masses appreciated
pelvic us: Uterus is retroflexed, with no evidence for uterine mass. Endometrial stripe measures 1.4 mm, with no abnormality.
Minimal amount of fluid in the endocervical canal, sometimes seen and usually does not correlate clinically. Occasionally, this finding can be seen in association with cervicitis.
Normal appearance of both ovaries. No evidence for abnormal adnexal mass or free pelvic fluid.
Imp
abdominal pain
r flank pain
clitoral pain
Plan PE benign. sxs now resolved. physical findings c/w vaginal atrophy. recommend f/up with her urogynaecologist as outpt re vaginal estrogen. cream and tablet discussed. Continue with current dose of amitryptiline
--- NOTE | 2025-02-10 12:05 | W.PN.UPDATE ---
Update Note
Progress Note Update
Patient seen and examined after postmidnight admission. Patient still reports 'gnawing' right-sided abdominal pain. Denies vomiting or any other new symptoms. Vital signs stable. No acute distress, regular rate and rhythm, normal S1-S2. Clear
to auscultation bilaterally. Positive bowel sounds, soft, nondistended, mild right sided tenderness to palpation without guarding.
CT A/P:
1. Possible gallstone within the gallbladder, without definite secondary signs of acute cholecystitis. If biliary colic is suspected, consider right upper quadrant ultrasound.
2. Findings suggestive of mild constipation.
3. 3 mm intrarenal nephrolithiasis on the left side, without hydronephrosis.
4. Small hiatal hernia.
Patient states she was seen by gynecology this morning and that evaluation was unremarkable. I discussed with the patient that I am not seeing anything life-threatening at this time and I am comfortable with her going home if she is. She reports
that she would like to go home.
Total time spent on d/c = 36 min. This included today's physical exam, progress note, review of laboratory and diagnostic data, preparation of discharge documents and prescriptions, and discussions about the pt's hospital course and discharge plan
with the patient and other medical pathologist involved in the patient's care.
--- NOTE | 2025-02-10 14:14 | W.DCSUMMARY ---
Discharge Summary
Discharge Data
Date of Admission: 02/10/25
Date of Discharge: 02/10/25
-
Pending Results: No
Hospital Course
Primary diagnoses:
Abdominal pain
Vaginal pain
Secondary diagnoses:
Endometriosis
Migraine headaches
Fibromyalgia
Anxiety
Depression
Vaginal atrophy
Clitoral atrophy
Abnormal uterine bleeding s/p D&C in 2023
Perimenopause
Consultants:
Gynecology
Imaging:
CT A/P:
1. Possible gallstone within the gallbladder, without definite secondary signs of acute cholecystitis. If biliary colic is suspected, consider right upper quadrant ultrasound.
2. Findings suggestive of mild constipation.
3. 3 mm intrarenal nephrolithiasis on the left side, without hydronephrosis.
4. Small hiatal hernia.
Hospital course: 54-year-old female who was admitted earlier today after she presented with chief complaints of abdominal pain and vaginal pain. She also mentioned right flank pain. Workup in the ER was unremarkable. Imaging above. LFTs were
normal, lipase was normal, no significant serological abnormalities. The patient was seen in consultation by gynecology. She had an unremarkable gynecological exam. She was discharged in medically stable condition
Discharge Plan
-
Patient Disposition: Home (Routine Discharge)
Discharge Diagnosis/Procedures: Abdominal pain
Condition: Good
Diet: No restrictions
Activity: As tolerated
Driving Restrictions: As prior to admission
Referrals:
Josiah Whittaker DO [Family Provider, Family Practice] - in less than 1 week
Prescriptions:
Continued
escitalopram oxalate 10 MG tablet
20 mg PO DAILY
topiramate 25 MG tablet
50 mg PO BID
lansoprazole 30 MG tablet,disintegrat, delay rel
30 mg PO DAILY
tizanidine [Zanaflex] 4 mg Tablet
4 mg PO HS
amitriptyline 10 mg Tablet
20 mg PO HS
cetirizine [Zyrtec] 10 mg Tablet
10 mg PO DAILY
norethindrone acetate [Gallifrey] 5 mg Tablet
5 mg PO DIRECTED
Rx Instructions:
take 10 days after your period next dose due 07/01/24
Discharge Orders:
Discharge Patient (As Directed); Ordered 02/10/25
Ordered By: Fransisco De La Garza
Discharge Date and Time
Discharge Date/Time: 02/10/25 14:04
Print Language: [place]
--- NOTE | 2025-02-10 14:20 | CM ---
Met with patient at bedside
SHEIKH form explained; signed @ [id number]
Pharmacy verified: [facility] @ [id number] [facility]
Lives w/ significant other; multilevel home; half bath 1st floor; full bath w/ walk-in shower 2nd floor
PLOF: reported she was independent with ambulation, stairs, and ADLs; not working; does not drive
NO SNF or Home Health utilization history
Sig. other will transport home
Plan: Discharge to home; no needs
== END 2025-02-10 14:04 | disposition home or self-care (01) ==
LOC: 2 SOUTH 04:04
PROVIDERS: Emergency Medicine; ADMITTING PHYSICIAN Hospitalist; ATTENDING PHYSICIAN Internal Medicine; EMERGENCY PHYSICIAN Student in an Organized Health Care Education/Training Program; FAMILY PHYSICIAN Family Medicine; OTHER PHYSICIAN Obstetrics & Gynecology
DX: R10.84 Generalized abdominal pain (principal); N20.0 Calculus of kidney; N80.9 Endometriosis, unspecified; G43.909 Migraine, unspecified, not intractable, without status migrainosus; M79.7 Fibromyalgia; F41.9 Anxiety disorder, unspecified; F32.A Depression, unspecified; N95.2 Postmenopausal atrophic vaginitis; K44.9 Diaphragmatic hernia without obstruction or gangrene; Z87.442 Personal history of urinary calculi; Z79.899 Other long term (current) drug therapy; G89.29 Other chronic pain; Z87.891 Personal history of nicotine dependence; Z91.048 Other nonmedicinal substance allergy status; Z88.1 Allergy status to other antibiotic agents; Z91.041 Radiographic dye allergy status; Z88.2 Allergy status to sulfonamides; Z79.3 Long term (current) use of hormonal contraceptives; G47.30 Sleep apnea, unspecified; K58.9 Irritable bowel syndrome, unspecified
CPT/HCPCS: 74177; 76775; 76830; 76856; 80053; 81003; 83605; 83690; 84703; 85025; 96361; 96374; 96375; 96376; 99285; G0378; Q9967